=== PATIENT | male | born 1965 | race Caucasian/White ===

== ENCOUNTER → 2017-10-09 | Outpatient (REF) | payer OTHER | LOC: M SFHCADAM 12:26 | DX: D72.819 Decreased white blood cell count, unspecified (principal); F10.20 Alcohol dependence, uncomplicated; E78.5 Hyperlipidemia, unspecified; Z12.5 Encounter for screening for malignant neoplasm of prostate ==

== ENCOUNTER → 2018-05-28 | Outpatient (CLI) | payer OTHER ==
[2018-05-28 19:55] LABS: BASO % 0.5 % (0.0-1.0); EOS % 0.5 % (0.0-3.0); HEMATOCRIT 42.4 % (42.0-52.0); HEMOGLOBIN 15.1 g/dl (13.5-17.5); IMMATURE GRANULOCYTE % 0.5 % (0-3.0); LYMPH # 1.4 10^3/uL (1.5-4.5); LYMPH % 21.9 % (24.0-44.0); MEAN CORPUSCULAR HEMOGLOBIN 32.1 pg (27.0-33.0); MEAN CORPUSCULAR HGB CONC 35.6 g/dl (32.0-36.5); MEAN CORPUSCULAR VOLUME 90.2 fl (80.0-96.0); MONO # 0.7 10^3/uL (0.0-0.8); MONO % 11.4 % (0.0-5.0); NEUTROPHILS # 4.2 10^3/uL (1.8-7.7); NEUTROPHILS % 65.2 % (36.0-66.0); PLATELET COUNT, AUTOMATED 226 10^3/uL (150-450); RED CELL DISTRIBUTION WIDTH 13.6 % (11.5-14.5); WHITE BLOOD COUNT 6.5 10^3/uL (4.0-10.0)
[2018-05-28 20:12] LABS: ALBUMIN 3.8 GM/DL (3.2-5.2); ALBUMIN/GLOBULIN RATIO 1.03 (1.00-1.93); ALKALINE PHOSPHATASE 105 U/L (45-117); ALT/SGPT 39 U/L (12-78); AMYLASE 74 U/L (25-115); ANION GAP 9 MEQ/L (8-16); AST/SGOT 59 U/L (7-37); BILIRUBIN,TOTAL 0.3 MG/DL (0.2-1.0); BLOOD UREA NITROGEN 4 MG/DL (7-18); CALCIUM LEVEL 8.5 MG/DL (8.5-10.1); CARBON DIOXIDE LEVEL 25 MEQ/L (21-32); CHLORIDE LEVEL 93 MEQ/L (98-107); CREATININE FOR GFR 0.73 MG/DL (0.70-1.30); GLOMERULAR FILTRATION RATE > 60.0 (>56); GLUCOSE, FASTING 91 MG/DL (70-100); LIPASE 99 U/L (73-393); POTASSIUM SERUM 4.2 MEQ/L (3.5-5.1); SODIUM LEVEL 127 MEQ/L (136-145); TOTAL PROTEIN 7.5 GM/DL (6.4-8.2)
== END ==
LOC: M ADAMS 14:48
DX: R10.9 Unspecified abdominal pain (principal)
CPT/HCPCS: 82150

== ENCOUNTER → 2018-06-04 | Outpatient (REF) | payer OTHER ==
[2018-06-05 00:03] LABS: ANION GAP 12 MEQ/L (8-16); BLOOD UREA NITROGEN 4 MG/DL (7-18); CALCIUM LEVEL 8.3 MG/DL (8.5-10.1); CARBON DIOXIDE LEVEL 22 MEQ/L (21-32); CHLORIDE LEVEL 93 MEQ/L (98-107); CREATININE FOR GFR 0.56 MG/DL (0.70-1.30); GLOMERULAR FILTRATION RATE > 60.0 (>56); GLUCOSE, FASTING 82 MG/DL (70-100); POTASSIUM SERUM 4.3 MEQ/L (3.5-5.1); SODIUM LEVEL 127 MEQ/L (136-145)
== END ==
LOC: M LABDRWAD 12:35
DX: R10.9 Unspecified abdominal pain (principal); E87.8 Other disorders of electrolyte and fluid balance, not elsewhere classified

== ENCOUNTER 2018-06-07 12:15 | Inpatient (IN) | payer OTHER ==
[2018-06-07] MEDS: FOLIC ACID 1 MG TAB PO (09:00)
[2018-06-07] MEDS: THIAMINE 100 MG TAB PO (09:00)
[2018-06-07 13:14] LABS: BASO % 0.5 % (0.0-1.0); EOS # 0.1 10^3/uL (0.0-0.50); EOS % 1.8 % (0.0-3.0); HEMATOCRIT 39.4 % (42.0-52.0); HEMOGLOBIN 14.7 g/dl (13.5-17.5); IMMATURE GRANULOCYTE % 0.2 % (0-3.0); LYMPH # 1.3 10^3/uL (1.5-4.5); LYMPH % 29.6 % (24.0-44.0); MEAN CORPUSCULAR HEMOGLOBIN 32.9 pg (27.0-33.0); MEAN CORPUSCULAR VOLUME 88.1 fl (80.0-96.0); MONO # 0.6 10^3/uL (0.0-0.8); MONO % 12.5 % (0.0-5.0); NEUTROPHILS # 2.4 10^3/uL (1.8-7.7); NEUTROPHILS % 55.4 % (36.0-66.0); PLATELET COUNT, AUTOMATED 175 10^3/uL (150-450); RED BLOOD COUNT 4.47 10^6/uL (4.30-6.10); RED CELL DISTRIBUTION WIDTH 13.6 % (11.5-14.5); WHITE BLOOD COUNT 4.4 10^3/uL (4.0-10.0)
[2018-06-07 13:44] LABS: ANION GAP 9 MEQ/L (8-16); BLOOD UREA NITROGEN 4 MG/DL (7-18); CALCIUM LEVEL 8.3 MG/DL (8.5-10.1); CARBON DIOXIDE LEVEL 26 MEQ/L (21-32); CHLORIDE LEVEL 88 MEQ/L (98-107); GLOMERULAR FILTRATION RATE > 60.0 (>56); GLUCOSE, FASTING 87 MG/DL (70-100); POTASSIUM SERUM 4.4 MEQ/L (3.5-5.1); SODIUM LEVEL 123 MEQ/L (136-145)
[2018-06-07] MEDS: NS 1,000 ML IV (14:13)
[2018-06-07] MEDS: NICOTINE 21MG/24HR 1 EA TRANSDERMAL TD (14:27)
[2018-06-07 14:51] LABS: FREE T4 1.15 NG/DL (0.76-1.46)
[2018-06-07] MEDS ORDERED: ACETAMINOPHEN TAB 650MG DOSE (2X325MG) PO (15:15)
[2018-06-07] MEDS ORDERED: ISOVUE-370 76% 100ML VIAL (Q9967) As Ordered (15:19)
[2018-06-07 16:36] LABS: OSMOLALITY SERUM 284 MOSM/KG (275-295)
[2018-06-07 16:53] LABS: CORTISOL BASELINE 9.1 UG/DL (4.3-22.4)
[2018-06-07 17:01] LABS: ANION GAP 13 MEQ/L (8-16); BLOOD UREA NITROGEN 3 MG/DL (7-18); CARBON DIOXIDE LEVEL 20 MEQ/L (21-32); CHLORIDE LEVEL 91 MEQ/L (98-107); CREATININE FOR GFR 0.39 MG/DL (0.70-1.30); GLOMERULAR FILTRATION RATE > 60.0 (>56); GLUCOSE, FASTING 81 MG/DL (70-100); POTASSIUM SERUM 4.4 MEQ/L (3.5-5.1); SODIUM LEVEL 124 MEQ/L (136-145)
[2018-06-07 17:04] LABS: OSMOLALITY URINE 225 MOSM/KG (500-800)
[2018-06-07 17:04] LABS: KETONE, URINE AUTO RFX NEGATIVE (NEGATIVE); LEUKOCYTE ESTERASE UR AUTO RFX NEGATIVE (NEGATIVE); NITRITE, URINE AUTO RFX NEGATIVE (NEGATIVE); RBC, URINE AUTO RFX 0 /HPF (0-3); SPECIFIC GRAVITY UR AUTO RFX 1.018 (1.002-1.035); SQUAM EPITHELIAL CELL UR AURFX 0 /HPF (0-6); WBC, URINE AUTO RFX 0 /HPF (0-3)
[2018-06-07 17:08] LABS: CREATININE,RANDOM URINE < 13.0 MG/DL; SODIUM,RANDOM URINE 59 MEQ/L
[2018-06-07 17:27] LABS: LACTIC ACID SEPSIS PROTOCOL 1.6 MMOL/L (0.4-2.0)
[2018-06-07] MEDS: OXAZEPAM 10 MG CAP PO ×2 (18:11→23:21)
[2018-06-07] MEDS: ENOXAPARIN 40 MG/0.4 ML SYRINGE (J1650) SC (20:54)
[2018-06-07] MEDS: LISINOPRIL 20 MG TAB PO (20:54)
[2018-06-07] MEDS: amLODIPine 5 MG TAB PO (20:55)
[2018-06-07] MEDS: risperiDONE 2 MG TAB PO (21:01)
[2018-06-07] MEDS: AMPICILLIN SOD/SULBACTAM SOD 1.5 GM in D5W MINI-BAG PLUS 50 ML IV (21:47)
[2018-06-08] MEDS: AMPICILLIN SOD/SULBACTAM SOD 1.5 GM in D5W MINI-BAG PLUS 50 ML IV ×3 (04:30→15:55)
[2018-06-08] MEDS: OXAZEPAM 10 MG CAP PO ×2 (05:29→11:43)
[2018-06-08 05:38] LABS: BASO # 0.1 10^3/uL (0.0-0.2); EOS # 0.1 10^3/uL (0.0-0.50); EOS % 1.8 % (0.0-3.0); HEMATOCRIT 37.1 % (42.0-52.0); HEMOGLOBIN 13.6 g/dl (13.5-17.5); IMMATURE GRANULOCYTE % 0.2 % (0-3.0); LYMPH # 1.3 10^3/uL (1.5-4.5); LYMPH % 25.4 % (24.0-44.0); MEAN CORPUSCULAR HEMOGLOBIN 31.9 pg (27.0-33.0); MEAN CORPUSCULAR HGB CONC 36.7 g/dl (32.0-36.5); MEAN CORPUSCULAR VOLUME 86.9 fl (80.0-96.0); MONO # 0.7 10^3/uL (0.0-0.8); MONO % 13.9 % (0.0-5.0); NEUTROPHILS # 2.9 10^3/uL (1.8-7.7); NEUTROPHILS % 57.7 % (36.0-66.0); PLATELET COUNT, AUTOMATED 172 10^3/uL (150-450); RED BLOOD COUNT 4.27 10^6/uL (4.30-6.10); RED CELL DISTRIBUTION WIDTH 13.3 % (11.5-14.5)
[2018-06-08 06:34] LABS: ANION GAP 8 MEQ/L (8-16); AST/SGOT 73 U/L (7-37); BLOOD UREA NITROGEN 8 MG/DL (7-18); CALCIUM LEVEL 8.2 MG/DL (8.5-10.1); CARBON DIOXIDE LEVEL 26 MEQ/L (21-32); CHLORIDE LEVEL 94 MEQ/L (98-107); CREATININE FOR GFR 0.62 MG/DL (0.70-1.30); GLOMERULAR FILTRATION RATE > 60.0 (>56); GLUCOSE, FASTING 86 MG/DL (70-100); SODIUM LEVEL 128 MEQ/L (136-145)
[2018-06-08 06:35] LABS: ALBUMIN/GLOBULIN RATIO 0.94 (1.00-1.93); ALKALINE PHOSPHATASE 118 U/L (45-117); ALT/SGPT 52 U/L (12-78); BILIRUBIN,TOTAL 0.8 MG/DL (0.2-1.0); TOTAL PROTEIN 6.2 GM/DL (6.4-8.2)
[2018-06-08] MEDS: THIAMINE 100 MG TAB PO (10:08)
[2018-06-08] MEDS: FOLIC ACID 1 MG TAB PO (10:08)
[2018-06-08] MEDS: MULTIVITAMINS/MINERALS THERAP 1 TAB PO (10:08)
[2018-06-08] MEDS: TAMSULOSIN 0.4 MG CAP PO (10:09)
[2018-06-08] MEDS: NICOTINE 21MG/24HR 1 EA TRANSDERMAL TD (13:43)
== END 2018-06-08 17:32 | disposition home or self-care (01) | DRG 811 ==
LOC: M ED 12:15 → M ED INP 16:33 → M PCU 19:50
DX: T78.3XXA Angioneurotic edema, initial encounter (principal); E22.2 Syndrome of inappropriate secretion of antidiuretic hormone; F41.9 Anxiety disorder, unspecified; F32.9 Major depressive disorder, single episode, unspecified; F17.210 Nicotine dependence, cigarettes, uncomplicated; I10 Essential (primary) hypertension; E78.5 Hyperlipidemia, unspecified; Z85.828 Personal history of other malignant neoplasm of skin; Z79.899 Other long term (current) drug therapy; Z88.5 Allergy status to narcotic agent

== ENCOUNTER → 2018-06-07 | Outpatient (REF) | payer OTHER ==
[2018-06-07 13:11] LABS: OSMOLALITY SERUM 288 MOSM/KG (275-295)
[2018-06-07 13:16] LABS: OSMOLALITY URINE 160 MOSM/KG (500-800)
[2018-06-07 13:40] LABS: ALBUMIN 3.1 GM/DL (3.2-5.2); ALBUMIN/GLOBULIN RATIO 0.91 (1.00-1.93); ALKALINE PHOSPHATASE 121 U/L (45-117); ALT/SGPT 49 U/L (12-78); ANION GAP 11 MEQ/L (8-16); AST/SGOT 66 U/L (7-37); BILIRUBIN,TOTAL 0.6 MG/DL (0.2-1.0); BLOOD UREA NITROGEN 5 MG/DL (7-18); CALCIUM LEVEL 7.7 MG/DL (8.5-10.1); CARBON DIOXIDE LEVEL 23 MEQ/L (21-32); CHLORIDE LEVEL 89 MEQ/L (98-107); CREATININE FOR GFR 0.54 MG/DL (0.70-1.30); FREE T4 1.06 NG/DL (0.76-1.46); GLOMERULAR FILTRATION RATE > 60.0 (>56); GLUCOSE, FASTING 79 MG/DL (70-100); POTASSIUM SERUM 4.5 MEQ/L (3.5-5.1); PSA SCREENING 0.13 NG/ML (< 4.0); SODIUM LEVEL 123 MEQ/L (136-145); TOTAL PROTEIN 6.5 GM/DL (6.4-8.2)
[2018-06-07 15:36] LABS: CORTISOL AM 12.2 UG/DL (4.3-22.4)
== END ==
LOC: M SFHCADAM 10:43
DX: E87.1 Hypo-osmolality and hyponatremia (principal); Z12.5 Encounter for screening for malignant neoplasm of prostate
CPT/HCPCS: 83930

== ENCOUNTER → 2018-06-14 | Outpatient (REF) | payer OTHER ==
[2018-06-14 13:29] LABS: ALBUMIN 3.2 GM/DL (3.2-5.2); ANION GAP 9 MEQ/L (8-16); BLOOD UREA NITROGEN 5 MG/DL (7-18); CALCIUM LEVEL 8.1 MG/DL (8.5-10.1); CARBON DIOXIDE LEVEL 26 MEQ/L (21-32); CHLORIDE LEVEL 92 MEQ/L (98-107); CREATININE FOR GFR 0.58 MG/DL (0.70-1.30); GLOMERULAR FILTRATION RATE > 60.0 (>56); GLUCOSE, FASTING 79 MG/DL (70-100); PHOSPHORUS LEVEL 3.5 MG/DL (2.5-4.9); POTASSIUM SERUM 4.6 MEQ/L (3.5-5.1); SODIUM LEVEL 127 MEQ/L (136-145)
== END ==
LOC: M SFHCADAM 09:37
DX: I10 Essential (primary) hypertension (principal); E87.1 Hypo-osmolality and hyponatremia
CPT/HCPCS: 80069

== ENCOUNTER → 2018-06-28 | Outpatient (REF) | payer OTHER ==
[2018-06-28 19:53] LABS: ANION GAP 9 MEQ/L (8-16); BLOOD UREA NITROGEN 4 MG/DL (7-18); CALCIUM LEVEL 8.4 MG/DL (8.5-10.1); CARBON DIOXIDE LEVEL 25 MEQ/L (21-32); CHLORIDE LEVEL 97 MEQ/L (98-107); CREATININE FOR GFR 0.73 MG/DL (0.70-1.30); GLOMERULAR FILTRATION RATE > 60.0 (>56); GLUCOSE, FASTING 68 MG/DL (70-100); POTASSIUM SERUM 4.4 MEQ/L (3.5-5.1); SODIUM LEVEL 131 MEQ/L (136-145)
== END ==
LOC: M SFHCADAM 14:19
DX: E87.1 Hypo-osmolality and hyponatremia (principal)

== ENCOUNTER 2018-09-03 13:26 | Emergency (ER) | payer OTHER ==
[~2018-09-03] VITALS: Ht 170.2 cm; Wt 63.6 kg
[~2018-09-03 13:26] MED LIST: /DIVA50TA PO; /QUET25TA; ABIL5TAB; AMLO5TAB6 PO; AUGM875T28 PO; CELE100C; CELE20TA; CELE40TA OR; DARV100T; DEPA250T2 OR; DEPA500T2 OR; FLOM0.4C39 PO; FOLI1TAB86 PO; LISI-538 PO; LITH300T2 PO; LITH450T OR; LOPR50TA; LOSA50TA88 PO; NAPR500T; No Historical Meds; No home meds; QUET30TA OR; QUET30XR; RISP0.5T3 PO; RISP1SOL PO; RISP2TAB3 PO; SERO200T OR; SEROQUEL; TRAM50TA2; TRAZ150T PO; TRAZ50TA; TRAZ50TA OR; VITA100T2 PO; VITMTA GT; ZOLO50TA PO
[2018-09-03 13:27] VITALS: BP 139/76
== END 2018-09-03 16:37 | disposition left against medical advice (07) ==
LOC: M ED 13:26
DX: K08.89 Other specified disorders of teeth and supporting structures (principal); Z53.21 Procedure and treatment not carried out due to patient leaving prior to being seen by health care provider

== ENCOUNTER → 2018-11-14 | Outpatient (REF) | payer OTHER ==
[~2018-11-14] MED LIST changes: -/DIVA50TA PO; -/QUET25TA; +DEPA1TAB3 PO; -QUET30XR; +SERO1TAB3; +SERO300T20
[2018-11-14 12:37] LABS: EOS # 0.1 10^3/uL (0.0-0.50); HEMATOCRIT 42.7 % (42.0-52.0); HEMOGLOBIN 15.1 g/dl (13.5-17.5); LYMPH # 1.1 10^3/uL (1.5-4.5); LYMPH % 27.1 % (24.0-44.0); MEAN CORPUSCULAR HEMOGLOBIN 31.9 pg (27.0-33.0); MEAN CORPUSCULAR HGB CONC 35.4 g/dl (32.0-36.5); MEAN CORPUSCULAR VOLUME 90.1 fl (80.0-96.0); MONO # 0.6 10^3/uL (0.0-0.8); MONO % 13.9 % (0.0-5.0); NEUTROPHILS # 2.3 10^3/uL (1.8-7.7); NEUTROPHILS % 55.8 % (36.0-66.0); PLATELET COUNT, AUTOMATED 218 10^3/uL (150-450); RED BLOOD COUNT 4.74 10^6/uL (4.30-6.10); WHITE BLOOD COUNT 4.1 10^3/uL (4.0-10.0)
[2018-11-14 13:15] LABS: ALBUMIN 4.1 GM/DL (3.2-5.2); ALT/SGPT 20 U/L (12-78); BILIRUBIN,TOTAL 0.5 MG/DL (0.2-1.0); BLOOD UREA NITROGEN 6 MG/DL (7-18); CALCIUM LEVEL 9.1 MG/DL (8.5-10.1); CARBON DIOXIDE LEVEL 25 MEQ/L (21-32); CHLORIDE LEVEL 98 MEQ/L (98-107); CREATININE FOR GFR 0.78 MG/DL (0.70-1.30); GLOMERULAR FILTRATION RATE > 60.0 (>56); GLUCOSE, FASTING 103 MG/DL (70-100); SODIUM LEVEL 130 MEQ/L (136-145); TOTAL PROTEIN 7.4 GM/DL (6.4-8.2)
== END ==
LOC: M SFHCADAM 08:56
PROVIDERS: ATTEND Family Medicine
DX: I10 Essential (primary) hypertension (principal); E87.1 Hypo-osmolality and hyponatremia; F10.20 Alcohol dependence, uncomplicated; D72.819 Decreased white blood cell count, unspecified; F31.9 Bipolar disorder, unspecified

== ENCOUNTER → 2019-11-21 | Outpatient (REF) | payer OTHER | LOC: M LAB REF 17:12 | PROVIDERS: ATTEND Dermatology | DX: L57.0 Actinic keratosis (principal) ==

== ENCOUNTER → 2020-02-03 | Outpatient (CLI) | payer OTHER ==
--- NOTE | 2020-02-03 10:22 | REP ---
Right hip: Two views. History: Pain in the right hip. Comparison AP pelvis radiograph is from February 03, 2009. Findings: There is extensive sclerosis and radiolucency in the femoral head on the right consistent with established avascular necrosis of the femoral head. Hip joint spaces preserved. No flattening is visible. There is minimal superior acetabular spurring. Vascular calcifications noted. No erosive changes seen. No fractures noted. 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 No collapse or flattening. Minimal acetabular spurring. Electronically Signed by Erik Waggoner MD 02/03/2020 10:14 A
== END ==
LOC: M ADAMS 09:28
PROVIDERS: ATTEND Physician Assistant
DX: M87.051 Idiopathic aseptic necrosis of right femur (principal); M25.751 Osteophyte, right hip

== ENCOUNTER → 2020-02-28 | Outpatient (CLI) | payer OTHER ==
[~2020-02-28] MED LIST changes: +AMLO1TAB24 PO; -AMLO5TAB6 PO; +VENL37.598 PO
== END ==
LOC: M LABSMTC 12:16
PROVIDERS: ATTEND Anesthesiology
DX: Z01.818 Encounter for other preprocedural examination (principal); Z11.59 Encounter for screening for other viral diseases
CPT/HCPCS: C9803; U0003

== ENCOUNTER → 2020-03-04 | Day surgery (SDC) | payer OTHER ==
[~2020-03-04] VITALS: Ht 170.2 cm; Wt 65.8 kg
[~2020-03-04] MED LIST changes: -AMLO1TAB24 PO; +AMLO5TAB6 PO; +LIDOCAINE 2% 100MG/5ML SDV (FOR ANES.) As Ordered ONE; +NS 1,000 ML IV ONE; +propofoL 200 MG/20 ML VIAL As Ordered ONE
--- NOTE | 2020-03-04 09:11 | ROOR ---
Patient Name: Yung Noonan Procedure Date: 03/04/2020 8:28 AM Date of : 1965 Age: 54 Room: [facility] Gender: Male Note Status: Finalized Procedure: Colonoscopy Indications: High risk colon cancer surveillance: Personal history of colonic polyps Providers: Cristhian BARAHONA MD Referring MD: Tim Benson MD Requesting Provider: Medicines: Monitored Anesthesia Care Complications: No immediate complications. Procedure: Pre-Anesthesia Assessment: - The heart rate, respiratory rate, oxygen saturations, blood pressure, adequacy of pulmonary ventilation, and response to care were monitored throughout the procedure. The Colonoscope was introduced through the anus and advanced to the terminal ileum, with identification of the appendiceal orifice and IC valve. The colonoscopy was performed without difficulty. The patient tolerated the procedure well. The quality of the bowel preparation was good. Findings: The perianal and digital rectal examinations were normal. Four sessile polyps were found in the rectum, sigmoid colon and cecum. The polyps were 3 to 5 mm in size. These polyps were removed with a cold snare. Resection and retrieval were complete. A 10 mm polyp was found in the proximal sigmoid colon. The polyp was centrally depressed/umbilicated. The polyp was removed with a hot snare. Resection and retrieval were complete. To prevent bleeding after the polypectomy, three hemostatic clips were successfully placed. There was no bleeding at the end of the procedure. Area was successfully injected with 3 mL April ink for tattooing. Small Internal Hemorrhoids. Impression: - Four 3 to 5 mm polyps in the rectum, in the sigmoid colon and in the cecum, removed with a cold snare. Resected and retrieved. - One 10 mm polyp in the proximal sigmoid colon, removed with a hot snare. Resected and retrieved. Clips were placed. Injected. - Small Internal Hemorrhoids. - The exam was otherwise normal to the cecum. Recommendation: - Telephone endoscopist for pathology results in 2 weeks. - Repeat colonoscopy date to be determined after pending pathology results are reviewed for surveillance based on pathology results. Cristhian Barahona MD Cristhian BARAHONA MD 03/04/2020 9:10:24 AM Electronically signed by Cristhian BARAHONA MD Number of Addenda: 0 Note Initiated On: 03/04/2020 8:28 AM Estimated Blood Loss: Estimated blood loss: none.
[2020-03-04 09:30] VITALS: BP 157/96
== END | disposition home or self-care (01) ==
LOC: M OPP 07:42
PROVIDERS: ATTEND Internal Medicine Gastroenterology
DX: Z86.010 Personal history of colon polyps (principal); D12.6 Benign neoplasm of colon, unspecified; D12.0 Benign neoplasm of cecum; I10 Essential (primary) hypertension; F31.9 Bipolar disorder, unspecified; Z88.5 Allergy status to narcotic agent; F17.218 Nicotine dependence, cigarettes, with other nicotine-induced disorders; Z79.899 Other long term (current) drug therapy; F32.9 Major depressive disorder, single episode, unspecified; F41.9 Anxiety disorder, unspecified; F12.10 Cannabis abuse, uncomplicated

== ENCOUNTER 2020-03-06 11:06 | Emergency (ER) | payer OTHER ==
[~2020-03-06 11:06] MED LIST changes: +AMLO1TAB24 PO; -AMLO5TAB6 PO; -LIDOCAINE 2% 100MG/5ML SDV (FOR ANES.) As Ordered ONE; -NS 1,000 ML IV ONE; -VENL37.598 PO; -propofoL 200 MG/20 ML VIAL As Ordered ONE
[2020-03-06] MEDS ORDERED: ISOVUE-370 76% 100ML VIAL As Ordered ONE (16:04)
[2020-03-06] MEDS ORDERED: CIPROFLOXACIN 500MG TABLET ONE (17:16)
[2020-03-06] MEDS ORDERED: CIPROFLOXACIN 500MG TABLET As Ordered ONE (17:16)
[2020-03-06] MEDS ORDERED: DICYCLOMINE INJ 20MG/2ML (J0500) As Ordered ONE (17:16)
[2020-03-06] MEDS ORDERED: DICYCLOMINE INJ 20MG/2ML (J0500) ONE (17:16)
[2020-04-02 14:21] LABS: BASO % 0.6 % (0.0-1.0); EOS # 0.1 10^3/uL (0.0-0.5); EOS % 0.9 % (0.0-3.0); HEMATOCRIT 41.8 % (42.0-52.0); HEMOGLOBIN 14.8 g/dl (13.5-17.5); LYMPH # 1.6 10^3/uL (1.5-5.0); LYMPH % 23.8 % (24.0-44.0); MEAN CORPUSCULAR HEMOGLOBIN 31.6 pg (27.0-33.0); MEAN CORPUSCULAR HGB CONC 35.4 g/dl (32.0-36.5); MEAN CORPUSCULAR VOLUME 89.1 fl (80.0-96.0); MONO # 0.7 10^3/uL (0.0-0.8); MONO % 10.9 % (0.0-5.0); NEUTROPHILS # 4.3 10^3/uL (1.5-8.5); NEUTROPHILS % 63.5 % (36.0-66.0); PLATELET COUNT, AUTOMATED 302 10^3/uL (150-450); RED BLOOD COUNT 4.69 10^6/uL (4.30-6.10); WHITE BLOOD COUNT 6.8 10^3/uL (4.0-10.0)
[2020-04-13 07:37] LABS: BLOOD UREA NITROGEN 9 MG/DL (7-18); GLUCOSE, FASTING 77 MG/DL (70-100)
[2020-04-13 07:38] LABS: CARBON DIOXIDE LEVEL 24 mmol/L (20-29); CHLORIDE LEVEL 94 MEQ/L (98-107); CREATININE FOR GFR 0.76 MG/DL (0.70-1.30); GLOMERULAR FILTRATION RATE > 60.0 (>56); POTASSIUM SERUM 4.4 MEQ/L (3.5-5.1); SODIUM LEVEL 129 MEQ/L (136-145)
== END 2020-03-06 17:25 | disposition home or self-care (01) ==
LOC: M ED 11:06
DX: R10.9 Unspecified abdominal pain (principal); Z98.890 Other specified postprocedural states; N41.9 Inflammatory disease of prostate, unspecified; I10 Essential (primary) hypertension; N40.0 Benign prostatic hyperplasia without lower urinary tract symptoms; F33.9 Major depressive disorder, recurrent, unspecified; Z88.5 Allergy status to narcotic agent; Z79.899 Other long term (current) drug therapy
CPT/HCPCS: 74018; 74177; 80048; 85025; 96372; 99284; J0500; Q9967

== ENCOUNTER 2020-04-11 08:34 | Inpatient (IN) | payer MEDICAID, OTHER ==
[~2020-04-11] VITALS: Ht 170.2 cm; Wt 76.0 kg
[2020-04-11 10:01] LABS: HEMATOCRIT 38.9 % (42.0-52.0); HEMOGLOBIN 14.1 g/dl (13.5-17.5); MEAN CORPUSCULAR HEMOGLOBIN 32.2 pg (27.0-33.0); MEAN CORPUSCULAR HGB CONC 36.2 g/dl (32.0-36.5); MEAN CORPUSCULAR VOLUME 88.8 fl (80.0-96.0); PLATELET COUNT, AUTOMATED 276 10^3/uL (150-450); RED BLOOD COUNT 4.38 10^6/uL (4.30-6.10); WHITE BLOOD COUNT 4.9 10^3/uL (4.0-10.0)
[2020-04-11 10:25] LABS: AMPHETAMINES LEVEL URINE NEGATIVE (NEGATIVE); BARBITURATES URINE NEGATIVE (NEGATIVE); BENZODIAZEPINES URINE NEGATIVE (NEGATIVE); CANNABINOIDS URINE POSITIVE (NEGATIVE); COCAINE METABOLITE URINE NEGATIVE (NEGATIVE); METHADONE URINE NEGATIVE (NEGATIVE); OPIATES URINE NEGATIVE (NEGATIVE); PHENCYCLIDINE URINE NEGATIVE (NEGATIVE)
[2020-04-11 10:33] LABS: ACETAMINOPHEN LEVEL < 2.0 UG/ML (10.0-30.0); ALBUMIN 3.5 GM/DL (3.2-5.2); ALT/SGPT 22 U/L (12-78); BILIRUBIN,DIRECT 0.2 MG/DL (0.0-0.2); BILIRUBIN,TOTAL 0.5 MG/DL (0.2-1.0); BLOOD UREA NITROGEN 9 MG/DL (7-18); CALCIUM LEVEL 8.5 MG/DL (8.5-10.1); CARBON DIOXIDE LEVEL 27 MEQ/L (21-32); CHLORIDE LEVEL 94 MEQ/L (98-107); CREATININE FOR GFR 0.69 MG/DL (0.70-1.30); ETHYL ALCOHOL (ETHANOL) 0.069 % (0.000-0.010); GLOMERULAR FILTRATION RATE > 60.0 (>56); GLUCOSE, FASTING 135 MG/DL (70-100); POTASSIUM SERUM 3.9 MEQ/L (3.5-5.1); SODIUM LEVEL 129 MEQ/L (136-145); TOTAL PROTEIN 6.7 GM/DL (6.4-8.2)
[2020-04-11] MEDS ORDERED: MAALOX 30 ML SUSP *UDC PO PRN (14:00)
[2020-04-11] MEDS ORDERED: MOM 30ML SUSPENSION UDC PO PRN (14:00)
[2020-04-11] MEDS ORDERED: traZODone 50 MG TAB PO PRN (14:00)
[2020-04-11] MEDS ORDERED: ACETAMINOPHEN TAB 650MG DOSE (2X325MG) PO PRN (14:00)
[2020-04-11] MEDS ORDERED: VENL37.598 PO (14:16)
[2020-04-11] MEDS ORDERED: LOSA50TA88 PO (14:16)
[2020-04-11 16:35] VITALS: BP 134/81
[2020-04-11 20:30] VITALS: BP 145/75
[2020-04-11] MEDS ORDERED: risperiDONE 2 MG TAB PO SCH (21:00)
[2020-04-11] MEDS ORDERED: amLODIPine 5 MG TAB PO SCH (21:00)
[2020-04-12 06:29] VITALS: BP 132/78
--- NOTE | 2020-04-12 07:46 | MHHPEPDOC ---
[facility] History & Physical History and Physical DATE OF ADMISSION: Apr 11, 2020 at 13:55 HPI: Yung presents today for concerns regarding his lack of sleep in the last few days and relationship problems. He denies hearing voices. The patient recently had a fight with his girlfriend after she told him she didnt want to be with him anymore. Furthermore, he reports becoming distraught/upset and having insomnia for several days following the incident. Yung reportedly mentioned suicidal statements to the police, and as a result, was brought in for assessment. The patient wanted to be connected with [facility] and continue therapy. Furthermore, he stated he had no intention of acting upon suicidal ideations and continues to deny them since his presentation to the inpatient mental health unit. MEDICATIONS: Current medications include Risperidone for his bipolar disorder. MEDICAL HISTORY: He has been diagnosed with bipolar 1. Regarding suicide, he reports a history of suicidal events, but denies any current suicidal thoughts. He denies any symptoms consistent with a relapse of bipolar disorder or any psychotic phenomenon at this time. FAMILY HISTORY: Yung denies a family history of mental illness. SOCIAL HISTORY - SUBSTANCE USE: Per Patient, he is an alcoholic, but has been cutting down his consumption. SOCIAL HISTORY - SMOKING: Regarding smoking, Yung states he cut down on smoking from 2 packs a day to 3 to 4 cigarettes per day. TESTS: The patient screens negative for MDD. Objective Appearance: Well groomed. Appears to be stated age. Well nourished. Behavior: Pleasant. Engaged. Cooperative with good eye contact. Affect: Full range. Appropriate to context. Mood: Appropriately reactive. Euthymic. Generally good. Speech: Normal rate. Spontaneous and Fluid. Normal volume. Motor: No gross motor abnormalities. Cognition: Alert, Attentive, and Oriented to person, place, time. Memory: No formal testing. No gross abnormalities of short or detention memory noted during interview. Thought Form: Linear and goal directed. Thought Content: No evidence of suicidal ideation. No evidence of aggressive or homicidal ideation. No evidence of delusions. No thoughts of self harm. Perception: No perceptual abnormalities noted. Judgement: Intact as evidenced by decision making in the recent past. Insight: Good insight into symptoms and treatment options. Assessment F31.89 Other bipolar disorder F43.20 Adjustment disorder, unspecified Plan The Patient was admitted to the inpatient mental health unit after reportedly getting into an argument with his girlfriend, of which then he became upset and reportedly made suicidal statements. He was brought in and admitted. He reported that he actually was trying to present to get into [facility] earlier, as he has a history of bipolar disorder and wanted to continue getting therapy, as he reported that the difficult situation continues to make it difficult for him to get treatment. Connect with [facility]. Continue Patients home medications and discharge today. Treatment priorities are 1) risk for suicide. Same day discharge. The patient at the time of discharge did not meet criteria for involuntary admission/extension due to having a normal mental status exam, fair insight into the situation, They are engaged in the discharge process, as well as being friendly and amenable in behavioral control and havent been engaging in any observed concerning behavior or ideation recently. They decline voluntary extension/admission at this time and must be discharged in good mariaa, as Im unable to make a case for holding the patient against their will. They may have historical risk factors of admissions and other interactions with psychiatry however, those are not modifiable from a clinical perspective. The patient will need to be discharged in good mariaa. Report situational problems and anxieties. Vital Signs Vital Signs Date Time Temp Pulse Resp B/P (MAP) Pulse Ox O2 Delivery O2 Flow Rate FiO2 04/12/20 06:29 97.8 73 18 132/78 (96) 04/11/20 16:37 98 Room Air Laboratory Data 24H Labs Laboratory Tests 2 04/11/20 09:42: Nucleated Red Blood Cells % (auto) 0.0, Anion Gap 8, Glomerular Filtration Rate > 60.0, Calcium Level 8.5, Total Bilirubin 0.5, Direct Bilirubin 0.2, Aspartate Amino Transf (AST/SGOT) 25, Alanine Aminotransferase (ALT/SGPT) 22, Alkaline Phosphatase 81, Total Protein 6.7, Albumin 3.5, Albumin/Globulin Ratio 1.1, Thyroid Stimulating Hormone (TSH) 1.330, Salicylates Level 6.0, Urine Opiates Screen NEGATIVE, Urine Methadone Screen NEGATIVE, Acetaminophen Level < 2.0L, Urine Barbiturates Screen NEGATIVE, Urine Phencyclidine Screen NEGATIVE, Urine Amphetamines Screen NEGATIVE, Urine Benzodiazepines Screen NEGATIVE, Urine Cocaine Metabolite Screen NEGATIVE, Urine Cannabinoids Screen POSITIVEH, Ethyl Alcohol Level 0.069H CBC/BMP Laboratory Tests 8/30/20 09:42 Medications Scheduled Amlodipine Besylate (Amlodipine Besylate) 5 Mg Tab, 5 MG PO QHS, (Reported) Losartan Potassium (Losartan Potassium) 50 Mg Tablet, 50 MG PO QHS, (Reported) Risperidone (Risperidone) 2 Mg Tab, 2 MG PO QHS, (Reported) Tamsulosin HCl (Flomax) 0.4 Mg Cap, 0.4 MG PO QHS, (Reported) Venlafaxine HCl (Venlafaxine HCl ER) 37.5 Mg Cap.er.24h, 37.5 MG PO QHS, (Reported) Allergies Coded Allergies: oxycodone (Verified Adverse Reaction, Intermediate, makes heart race, 02/23/20) YANY EDWARDS DO Apr 12, 2020 07:46
--- NOTE | 2020-04-12 07:52 | MHDSPDOC ---
[facility] Discharge Summary Discharge Summary DATE OF ADMISSION: Apr 11, 2020 at 13:55 DATE OF DISCHARGE: Apr 12, 2020 at 12:15 please see hp for same day discharge Vital Signs/I&Os Vital Signs Date Time Temp Pulse Resp B/P (MAP) Pulse Ox O2 Delivery O2 Flow Rate FiO2 04/12/20 06:29 97.8 73 18 132/78 (96) 04/11/20 16:37 98 Room Air Laboratory Data Labs 24H Laboratory Tests 2 04/11/20 09:42: Nucleated Red Blood Cells % (auto) 0.0, Anion Gap 8, Glomerular Filtration Rate > 60.0, Calcium Level 8.5, Total Bilirubin 0.5, Direct Bilirubin 0.2, Aspartate Amino Transf (AST/SGOT) 25, Alanine Aminotransferase (ALT/SGPT) 22, Alkaline Phosphatase 81, Total Protein 6.7, Albumin 3.5, Albumin/Globulin Ratio 1.1, Thyroid Stimulating Hormone (TSH) 1.330, Salicylates Level 6.0, Urine Opiates Screen NEGATIVE, Urine Methadone Screen NEGATIVE, Acetaminophen Level < 2.0L, Urine Barbiturates Screen NEGATIVE, Urine Phencyclidine Screen NEGATIVE, Urine Amphetamines Screen NEGATIVE, Urine Benzodiazepines Screen NEGATIVE, Urine Cocaine Metabolite Screen NEGATIVE, Urine Cannabinoids Screen POSITIVEH, Ethyl Alcohol Level 0.069H CBC/BMP Laboratory Tests 04/11/20 09:42 Medications Scheduled Amlodipine Besylate (Amlodipine Besylate) 5 Mg Tab, 5 MG PO QHS, (Reported) Losartan Potassium (Losartan Potassium) 50 Mg Tablet, 50 MG PO QHS, (Reported) Risperidone (Risperidone) 2 Mg Tab, 2 MG PO QHS, (Reported) Tamsulosin HCl (Flomax) 0.4 Mg Cap, 0.4 MG PO QHS, (Reported) Venlafaxine HCl (Venlafaxine HCl ER) 37.5 Mg Cap.er.24h, 37.5 MG PO QHS, (Reported) Allergies Coded Allergies: oxycodone (Verified Adverse Reaction, Intermediate, makes heart race, 02/23/20) YANY EDWARDS DO Apr 12, 2020 07:52
[2020-04-12] MEDS ORDERED: TAMSULOSIN 0.4 MG CAP PO SCH (09:00)
--- NOTE | 2020-04-12 12:30 | IPNPDOC ---
Text Note Date of Service The patient was seen on 04/12/20. NOTE PT. WAS ALREADY DISCHARGED HAD LEFT THE HOSPITAL, BEFORE I HAD THE OPPORTUNITY TO CONSULT ON HIM. VS,Fishbone, I+O VS, Fishbone, I+O Vital Signs Date Time Temp Pulse Resp B/P (MAP) Pulse Ox O2 Delivery O2 Flow Rate FiO2 04/12/20 06:29 97.8 73 18 132/78 (96) 04/11/20 16:37 98 Room Air MAKI CARR MD Apr 12, 2020 12:30
== END 2020-04-12 12:15 | disposition home or self-care (01) | DRG 753 ==
LOC: M ED 08:34 → M ED INP 13:55 → M PSY 16:31
PROVIDERS: ADMIT Psychiatry & Neurology Addiction Medicine; ATTEND Psychiatry & Neurology Addiction Medicine
DX: F31.89 Other bipolar disorder (principal); F43.20 Adjustment disorder, unspecified; Z79.899 Other long term (current) drug therapy; Z88.5 Allergy status to narcotic agent

== ENCOUNTER → 2020-06-03 | Outpatient (CLI) | payer OTHER ==
[~2020-06-03] MED LIST changes: +VENL37.598 PO
--- NOTE | 2020-06-03 12:32 | REP ---
INDICATION: N63.41 SUBAREOLAR LUMP OF RT BREAST; N63.41 SUBAREOLAR LUMP OF RT BREAST. Family history breast cancer in mother. COMPARISON: None TECHNIQUE: MLO and CC views of both breasts performed with tomosynthesis. Spot compression views and magnification views are performed of the right retroareolar region at the site of a palpable lump. Focused right retroareolar ultrasound is performed. FINDINGS: There are mild fibroglandular densities bilaterally. At the site of the palpable lump in the right retroareolar region there is focal density which appears slightly nodular but mostly ill-defined. Magnification views demonstrate tiny pleomorphic microcalcifications in this region. These appear somewhat suspicious. Otherwise no mass or clustered microcalcifications are seen bilaterally. Real-time sonographic evaluation of the right retroareolar region demonstrates a rounded, primarily hypoechoic lesion. It measures 1.2 x 1.2 x 0.8 cm. There are tiny echogenic foci internally which may correlate with the tiny calcifications seen on the mammogram. There are some tiny cystic areas within the lesion as well. IMPRESSION: BIRADS/ACR category 4 suspicious. At the site of the palpable lump in the right retroareolar region focal ill-defined density appears somewhat nodular but demonstrates primarily ill-defined borders. Tiny pleomorphic microcalcifications are seen on magnification views within the density. By ultrasound there is a rounded nodular hypoechoic lesion with a maximum diameter of 1.2 cm containing tiny echogenic foci likely corresponding to the calcifications seen by mammography. Recommend ultrasound-guided biopsy. Specimen radiographs should also be performed to ensure that the calcifications are sampled. This mammogram was interpreted with the aid of an FDA-approved computer-aided detection system. The patient letter being requested is M 4. RECOMMENDATION: Recommend ultrasound-guided biopsy. Specimen radiographs should also be performed to ensure that the calcifications are sampled, <Electronically signed by Nghia Robles > 06/03/20 [id number]
== END ==
LOC: M WHC 08:04
PROVIDERS: ATTEND Family Medicine
DX: N63.41 Unspecified lump in right breast, subareolar (principal); R92.0 Mammographic microcalcification found on diagnostic imaging of breast
CPT/HCPCS: 76642; 77066; G0279

== ENCOUNTER → 2020-06-22 | Outpatient (REF) | payer OTHER | LOC: M SFHCADAM 16:58 | PROVIDERS: ATTEND Family Medicine | DX: N63.41 Unspecified lump in right breast, subareolar (principal); N64.52 Nipple discharge ==

== ENCOUNTER → 2020-08-03 | Outpatient (CLI) | payer OTHER ==
[~2020-08-03] MED LIST changes: +RISP-9 PO; -RISP2TAB3 PO
== END ==
LOC: M PLALAB 11:53
PROVIDERS: ATTEND Surgery
DX: Z13.79 Encounter for other screening for genetic and chromosomal anomalies (principal)

== ENCOUNTER → 2020-08-03 | Outpatient (REF) | payer OTHER ==
--- NOTE | 2020-08-03 12:49 | ROOPDOC ---
[facility] Report Of Operation Report of Operation DATE OF PROCEDURE: 08/03/2020 DIAGNOSIS: right breast suspicious lesion PROCEDURE: Ultrasound guided biopsy of right breast suspicious lesion with clip placement SURGEON: Virginia Obrien BLOOD LOSS: minimal COMPLICATIONS: none Lidocaine 1% LOT [id number] Expiration 12/04 Sodium Bicarbonate 8.4% LOT [id number] Expiration 06/02 Hydromark clip LOT [id number] Expiration 04/01/23 SHAPE 4 Bx device: BARD [id number] x10 cm LOT [id number] Expiration 04/09/23 Informed consent was obtained. The most common risk and possible complications including bleeding, hematoma, bruising, infection, injury to surrounding structures were explained to the patient and the patient expressed u nderstanding. Patient was placed on the bed in the supine position. Appropriate time out was done stating patient's name, date of , and the procedure to be performed. The right breast was prepped and draped in the usual fashion. The ultrasound was used to confirm the location of the lesion in the right breast at upper outer quadrant in periareolar region. Plain Lidocaine 1% and 8.4% sodium bicarbonate 10:1 mix was used to anesthetize the skin, the biopsy site and tissues along the anticipated biopsy tract. Small skin incision was made with blade number 11. BARD Marquee 14G cannula with introducer ([id number]) was inserted through the incision and advanced under the ultrasound guidance to position immediately adjacent to the lesion. Next, the introducer was removed and BARD Marquee 14G biopsy device was places in the cannula. Pre-biopsy imaging, and post-biopsy imaging were captured. Five good core biopsies were taken at various levels of the lesion. Specimen was placed in formaldehyde, labeled with appropriate biopsy site and patient's name, and sent to pathology for evaluation. Next, the biopsy device was withdrawn and a clip introducer was inserted into the biopsy site via the cannula. The SHAPE 4 Hydromark clip was deployed under sonographic guidance. Post-clip placement image was captured. Manual pressure over the biopsy cavity and tract was held after the clip introducer was withdrawn. No bleeding was noted upon removal of the pressure. Post-biopsy mammogram of the right breast was obtained and showed clip in expected position. Postprocedural dressing was placed. Patient tolerated procedure well. Discharge instructions were discussed with the patient and the patient expressed understanding. VIRGINIA OBRIEN DO Aug 03, 2020 12:49
[2020-08-03 16:03] LABS: LUTEINIZING HORMONE 3.5 mIU/mL (1.5-9.3)
== END ==
LOC: M PLALAB 11:54
PROVIDERS: ATTEND Surgery
DX: N62 Hypertrophy of breast (principal)

== ENCOUNTER → 2020-08-03 | Outpatient (CLI) | payer OTHER ==
[2020-08-03 11:46] VITALS: BP 132/84
--- NOTE | 2020-08-03 12:09 | REP ---
INDICATION: N63.10 RIGHT BREAST MASS. COMPARISON: Ultrasound 06/03/2020. TECHNIQUE: Real-time sonographic evaluation of right breast performed. FINDINGS: Ultrasound guidance was provided for Dr. Webb who performed ultrasound-guided biopsy of the right retroareolar region. Biopsy needle is seen within the ill-defined hypoechoic area in the right retroareolar region. IMPRESSION: Ultrasound guidance provided for Dr. Webb for ultrasound-guided biopsy of the right retroareolar region. RECOMMENDATION: Clinical follow-up. <Electronically signed by Nghia Robles > 08/03/20 1206
--- NOTE | 2020-08-03 12:12 | REP ---
INDICATION: N63.10 RIGHT BREAST MASS/US GUIDED BX/CK CLIP PLACEMENT. COMPARISON: Mammogram 06/03/2020. TECHNIQUE: ML and CC views right breast performed following ultrasound-guided biopsy. FINDINGS: HydroMARK clip is seen in the right retroareolar region at the site of the biopsy. The clip is in the region of the retroareolar fibroglandular density previously described. The previously noted tiny calcifications are not visualized on today's exam and were likely sampled during the biopsy. IMPRESSION: HydroMARK clip placed at the site of the right retroareolar biopsy. The previously noted microcalcifications in that region are no longer visualized. RECOMMENDATION: Clinical follow-up. <Electronically signed by Nghia Robles > 08/03/20 [id number]
--- NOTE | 2020-08-12 13:47 | ROOPDOC ---
[facility] Report Of Operation Report of Operation DATE OF PROCEDURE: 08/03/20 DIAGNOSIS: right breast suspicious lesion PROCEDURE: Ultrasound guided biopsy of right breast suspicious lesion with clip placement SURGEON: Virginia Obrien BLOOD LOSS: minimal COMPLICATIONS: none Lidocaine 1% LOT [id number] Expiration 11/2023 Sodium Bicarbonate 8.4% LOT [id number] Expiration 05/2021 Hydromark clip LOT [id number] Expiration 03/2023 SHAPE 4 Bx device: BARD [id number] x10 cm LOT [id number] Expiration 03/2023 Informed consent was obtained. The most common risk and possible complications including bleeding, hematoma, bruising, infection, injury to surrounding structures were explained to the patient and the patient expressed understanding. Patient was placed on the bed in the supine position. Appropriate time out was done stating patients name, date of , and the procedure to be performed. The right breast was prepped and draped in the usual fashion. The ultrasound was used to confirm the location of the lesion in the right retroareolar region extending slightly into upper outer breast. Plain Lidocaine 1% and 8.4% sodium bicarbonate 10:1 mix was used to anesthetize the skin, the biopsy site and tissues along the anticipated biopsy tract. Small skin incision was made with blade number 11. BARD Marquee 14G cannula with introducer ([id number]) was inserted through the incision and advanced under the ultrasound guidance to position immediately adjacent to the lesion. Next, the introducer was removed and BARD Marquee 14G biopsy device was places in the cannula. Pre-biopsy imaging, and post-biopsy imaging were captured. Five good core biopsies were taken at various levels of the lesion. Specimen was placed in formaldehyde, labeled with appropriate biopsy site and patients name, and sent to pathology for evaluation. Next, the biopsy device was withdrawn and a clip introducer was inserted into the biopsy site via the cannula. The SHAPE 4 Hydromark clip was deployed under sonographic guidance. Post-clip placement image was captured. Manual pressure over the biopsy cavity and tract was held after the clip introducer was withdrawn. No bleeding was noted upon removal of the pressure. Post-biopsy mammogram of the right breast was obtained and showed clip in expected position. Postprocedural dressing was placed. Patient tolerated procedure well. Discharge instructions were discussed with the patient and the patient expressed understanding. VIRGINIA OBRIEN DO Aug 12, 2020 13:47
== END ==
LOC: M WHCPRO 09:25
PROVIDERS: ATTEND Surgery
DX: N62 Hypertrophy of breast (principal)

== ENCOUNTER → 2020-08-27 | Outpatient (CLI) | payer OTHER ==
[~2020-08-27] MED LIST changes: -LISI-538 PO; +LISI20TA33 PO; +PROHANCE 279.3MG/ML 15ML VIAL As Ordered ONE
--- NOTE | 2020-08-27 13:01 | REP ---
INDICATION: RT BREAST MASS W/ NIPPLE DISCHARGE. COMPARISON: Mammogram a 06/03/2020. Her TECHNIQUE: Three Soco MRI imaging was performed with a dedicated breast coil. Axial, coronal, and sagittal T1 and T2 weighted scans were obtained with and without fat saturation in the usual fashion. The study includes dynamically acquired post gadolinium-enhanced imaging with image subtraction. Maximum intensity projection and multi planar reformation imaging is included as well. This study is interpreted with the aid of [employer], an FDA approved computer aided detection (CAD) software program, on a dedicated breast MRI workstation. The gadolinium enhancement dose is 13 mL of intravenous ProHance. FINDINGS: Moderate fibroglandular tissue is present bilaterally compatible with gynecomastia. There is minimal background parenchymal enhancement. There is no axillary adenopathy. No cystic changes seen in either breast. There is no suspicious enhancing mass or morphologic abnormality. IMPRESSION: BI-RADS category 1-bilateral breast MRI. No suspicious enhancing mass or morphologic abnormality. <Electronically signed by Nghia Robles > 08/27/20 [id number]
== END ==
LOC: M RAD 08:02
PROVIDERS: ATTEND Surgery
DX: R92.8 Other abnormal and inconclusive findings on diagnostic imaging of breast (principal); N63.10 Unspecified lump in the right breast, unspecified quadrant; N64.52 Nipple discharge; Z80.3 Family history of malignant neoplasm of breast
CPT/HCPCS: A9576; C8908

== ENCOUNTER → 2020-09-23 | Outpatient (REF) | payer OTHER ==
[~2020-09-23] MED LIST changes: -PROHANCE 279.3MG/ML 15ML VIAL As Ordered ONE
[2020-09-24 12:49] LABS: BASO # 0.1 10^3/uL (0.0-0.2); BASO % 1.2 % (0.0-1.0); EOS # 0.2 10^3/uL (0.0-0.5); EOS % 3.7 % (0.0-3.0); HEMATOCRIT 41.1 % (42.0-52.0); HEMOGLOBIN 14.7 g/dl (13.5-17.5); LYMPH # 2.5 10^3/uL (1.5-5.0); LYMPH % 48.7 % (24.0-44.0); MEAN CORPUSCULAR HEMOGLOBIN 31.3 pg (27.0-33.0); MEAN CORPUSCULAR HGB CONC 35.8 g/dl (32.0-36.5); MEAN CORPUSCULAR VOLUME 87.4 fl (80.0-96.0); MONO # 0.5 10^3/uL (0.0-0.8); MONO % 9.5 % (2.0-8.0); NEUTROPHILS # 1.9 10^3/uL (1.5-8.5); NEUTROPHILS % 36.3 % (36.0-66.0); PLATELET COUNT, AUTOMATED 250 10^3/uL (150-450); WHITE BLOOD COUNT 5.2 10^3/uL (4.0-10.0)
[2020-09-24 13:24] LABS: ALBUMIN 3.9 GM/DL (3.2-5.2); ALT/SGPT 21 U/L (12-78); BILIRUBIN,TOTAL 0.5 MG/DL (0.2-1.0); BLOOD UREA NITROGEN 6 MG/DL (7-18); CALCIUM LEVEL 8.9 MG/DL (8.5-10.1); CARBON DIOXIDE LEVEL 27 MEQ/L (21-32); CHLORIDE LEVEL 93 MEQ/L (98-107); CREATININE FOR GFR 0.83 MG/DL (0.70-1.30); GLOMERULAR FILTRATION RATE > 60.0 (>56); GLUCOSE, FASTING 78 MG/DL (70-100); POTASSIUM SERUM 5.3 MEQ/L (3.5-5.1); SODIUM LEVEL 127 MEQ/L (136-145); TOTAL PROTEIN 7.3 GM/DL (6.4-8.2)
== END ==
LOC: M SFHCADAM 15:26
PROVIDERS: ATTEND Family Medicine
DX: D72.819 Decreased white blood cell count, unspecified (principal); I10 Essential (primary) hypertension

== ENCOUNTER → 2020-09-25 | Outpatient (CLI) | payer OTHER | LOC: M LABSMTC 10:31 | PROVIDERS: ATTEND Surgery | DX: Z01.812 Encounter for preprocedural laboratory examination (principal); Z20.822 Contact with and (suspected) exposure to COVID-19 ==

== ENCOUNTER → 2020-09-28 | Outpatient (CLI) | payer OTHER ==
[~2020-09-28] MED LIST changes: +ACET1TAB16 PO
--- NOTE | 2020-09-28 09:08 | REP ---
INDICATION: PREOP COMPARISON: 09/29/2008 TECHNIQUE: PA and lateral. FINDINGS: The mediastinum and cardiac silhouette are normal. The lung camejo demonstrate chronic appearing changes without acute consolidation, effusion, or pneumothorax. The skeletal structures are intact and normal. IMPRESSION: No acute cardiopulmonary process. <Electronically signed by Siva Montemayor > 09/28/20 0904
== END ==
LOC: M ADAMS 08:03
PROVIDERS: ATTEND Family Medicine
DX: Z01.818 Encounter for other preprocedural examination (principal)

== ENCOUNTER 2020-09-30 08:04 | Day surgery (SDC) | payer OTHER ==
[~2020-09-30] VITALS: Ht 170.2 cm; Wt 65.2 kg
[~2020-09-30 08:04] MED LIST changes: -ACET1TAB16 PO; +HEPARIN SOD (PORCINE) 5000UNITS/ML 1ML VIAL/SYRINGE SQ ONE; +LIDOCAINE 1% MDV 20ML VIAL SQ PRN; +LR 1,000 ML IV ONE; +ceFAZolin SOD 2 GM in IV 1 EA IV ONE
--- OUTSIDE RECORDS SUMMARY | 2020-09-30 08:07 | CCD ---
Author Author [facility] [employer] Organization [facility] Address Unknown Phone Unavailable Care Team Providers Care Technical Staff Engineer Name Role Phone Tim Benson Unavailable PROBLEMS Type Condition ICD9-CM Code [id number] Code Onset Dates Condition S tatus W/U Status Risk SNOMED Code Notes Problem Alcoholism F10.20 Active confirmed 3119166 Problem HTN (hypertension) I10 Active confirmed 3 9313192 Problem Leukopenia, unspecified type D72.819 Active confirm ed 39152308 Problem Hyperlipidemia, unspecified hyperlipidemia type E7 8.5 Active confirmed 46791971 Problem Dorsalgia, unspecified M54.9 Active confirmed 090839927 Problem Tobacco abuse Z72.0 Active confirmed 594450 000 Problem Anterolisthesis M43.10 Active confirmed 2741 46143 L5 on S1, MRI 1108 Problem Actinic keratosis L57.0 Active confirmed 20 4595269 Problem Bipolar disorder, unspecified F31.9 Active confirm ed 50026116 Problem Smoker F17.200 Active confirmed 15846906 Problem Other chronic pain G89.29 Active confirmed 8 5288199 Problem Marijuana abuse, continuous F12.10 Active confirmed 369116475 Problem BPH loc w urin obs/LUTS N40.1 Active confirmed 874943139 Problem Enuresis, nocturnal only N39.44 Active confirmed 9552397 Problem Hyponatremia with normal extracellular fluid volume E87.1 Active confirmed 01791771 "beer potomania", se e 06/30 ALLERGIES Allergen (clinical drug ingredient) Drug/Non Drug Allergy do cumented on EMR Reaction Allergy Type Onset Date Status Oxycodone Tachycardia Drug Allergy Active lisinopril angioedema 05/30 Non Drug Allergy Ac tive ENCOUNTERS from 1965 to 2020-09-29 Encounter Location Date Provider Diagnosis [facility] [address] [place] [id number] 15 Sep, 2020 Korey Benson Pre-op evaluation Z01.818 IMMUNIZATIONS Vaccine Route Administration Date Status Influenza (6mo & up) Fluzone Unknown Aug 21, 2016 Ref used SOCIAL HISTORY Tobacco Use: Social History Observation Description Date Details (start date - stop date) Current Smoker Sex Assigned At : Social History Observation Description Sex Assigned At Unknown Audit Question Answer Notes Total Score: 13 Interpretation: Simple Advice Language: Question Answer Notes Languages spoken: Thai Caodaism: Question Answer Notes Caodaism 21 Restorationism Sexual Hx: Question Answer Notes Had sex in the last 12 months (vaginal, oral, or anal)? No Have you ever had an STD? No Drug and Alcohol Question Answer Notes Total Score: 1 Interpretation: Low level Alcohol Screening: Question Answer Notes Did you have a drink containing alcohol in the past year? Ye s Points 7 Interpretation Positive How often did you have six or more drinks on one occas ion in the past year? Less than monthly (1 point) How many drinks did you have on a typica l day when you were drinking in the past year? 5 or 6 (2 points) How often did you have a drink containing alcohol in t he past year? Four or more times a week (4 points) Tobacco Use: Question Answer Notes Are you a: current smoker Smoking Cessation Information Given 10/09/2017 Patient counseled on the dangers of tobacco use and urged to quit: 10/28/2019 How many cigarettes a day do you smoke? 21-30 Are you interested in quitting? Ready to quit Counseled the patient on tobacco use, cessation provided REASON FOR REFERRAL No Information VITAL SIGNS No information MEDICATIONS Medication SIG (Take, Route, Frequency, Duration) Notes Start Da te End Date Status Norvasc 5 MG 1 tablet Orally Once a day for 90 Active Folic Acid 1 MG Oral for 30 Active Venlafaxine HCl ER 37.5 MG 1 cap Orally Daily for 90 Active Acamprosate Calcium 333 MG Oral for 30 Active Losartan Potassium 50 MG 1 tablet Orally Once a day for 90 day(s ) May, Active Fluorouracil 5 % 1 application Externally Twi ce a day Mon - Fri to lesion on vertex of scalp, do not pick or rub area for 42 days 18 Nov, 202 0 Active Risperdal 2 MG 1 tab Orally Daily for 90 Active Mupirocin 2 % 1 application Externally Three times a d ay to scalp for 5 day(s) Oct, Not-Taking Tamsulosin HCl 0.4 MG 1 capsule Orally Once a day for 90 Active PROCEDURES No Information RESULTS No Results REASON FOR VISIT chest xray MEDICAL (GENERAL) HISTORY Type Description Date Medical History Bipolar disorder Medical History Tobacco use Medical History mid midline nasal BCC excise d ~2007 [facility] if Mohs (per patient) Medical History R dorsal hand BCC-excised 07/2016-Sahil Medical History hypertension Medical History alcohol abuse Medical History fatty liver US 01/26, CT 05/30 Medical History adenomatous colon polyps Medical History DDD/DJD of L/S spine with anterolisthes is L5 on S1 MRI 06/20 Medical History hyperlipidemia Medical History daily marijuana use Medical History hyponatremia, asymptomatic ( prob "beer potomania", also 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 Sessile adenomatous polyps. Repeat in 3 years (07/2019) 07/2016 Surgical History R-Breast BX 07/2020 Goals Section No Information Health Concerns No Information MEDICAL EQUIPMENT No Information MENTAL STATUS No Information FUNCTIONAL STATUS No Information ASSESSMENTS Encounter Date Diagnosis Assessment Notes Treatment Notes Treatm ent Clinical Notes Sep, Pre-op evaluation (ICD-10 - Z01.818) PLAN OF TREATMENT Future Test Test Name Order Date ADM CHEST 2 VIEW [id number] Next Appt Details Provider Name:Charley Webb, 03-10-17 09:45:00 AM, [address] [place] [address], [phone], Provider Name:Charley Webb, 03-10-24 08:00:00 AM, [address] [place] [address], [address], Provider Name:Charley Webb, 31-10-18 09:00:00 AM, [address] [place], [address], Insurance Providers Payer Name Payer Address Payer Phone Insured Name Patient Relati onship to Insured Coverage Start Date Coverage End Date [facility] COMMUN[facility] PLAN [facility] [address] [facility] [phone] MARIA C BEATTY self
--- OUTSIDE RECORDS SUMMARY | 2020-09-30 08:07 | CCD ---
Author Author [facility] Organization [facility] Address Unknown Phone Unavailable Care Team Providers Care Laborer [employer] Name Role Phone Charley Webb Unavailable PROBLEMS Type Condition ICD9-CM Code XPT49-CT Code Onset Dates Condition S tatus W/U Status Risk SNOMED Code Notes Problem Alcoholism F10.20 Active confirmed 7735930 Problem HTN (hypertension) I10 Active confirmed 3 2887778 Problem Leukopenia, unspecified type D72.819 Active confirm ed 11769928 Problem Hyperlipidemia, unspecified hyperlipidemia type E7 8.5 Active confirmed 76976004 Problem Dorsalgia, unspecified M54.9 Active confirmed 036456010 Problem Tobacco abuse Z72.0 Active confirmed 266188 000 Problem Anterolisthesis M43.10 Active confirmed 2741 69140 L5 on S1, MRI 08 Problem Actinic keratosis L57.0 Active confirmed 20 9277491 Problem Bipolar disorder, unspecified F31.9 Active confirm ed 54347228 Problem Smoker F17.200 Active confirmed 81017873 Problem Other chronic pain G89.29 Active confirmed 8 6903739 Problem Marijuana abuse, continuous F12.10 Active confirmed 925661057 Problem BPH loc w urin obs/LUTS N40.1 Active confirmed 571929216 Problem Enuresis, nocturnal only N39.44 Active confirmed 8039915 Problem Hyponatremia with normal extracellular fluid volume E87.1 Active confirmed 07251833 "beer potomania", se e 06/30 ALLERGIES Allergen (clinical drug ingredient) Drug/Non Drug Allergy do cumented on EMR Reaction Allergy Type Onset Date Status Oxycodone Tachycardia Drug Allergy Active lisinopril angioedema 05/30 Non Drug Allergy Ac tive ENCOUNTERS from 1965 to 2020 Encounter Location Date Provider Diagnosis [facility] [address] [place] [phone] Sep, Charley Tracey IMMUNIZATIONS Vaccine Route Administration Date Status Influenza (6mo & up) Fluzone Unknown Aug 21, 2016 Ref used SOCIAL HISTORY Tobacco Use: Social History Observation Description Date Details (start date - stop date) Current Smoker Sex Assigned At : Social History Observation Description Sex Assigned At Unknown Audit Question Answer Notes Total Score: 13 Interpretation: Simple Advice Language: Question Answer Notes Languages spoken: Italian Sikh: Question Answer Notes Sikh 21 Muslim Sexual Hx: Question Answer Notes Had sex [...] Notes Start Da te End Date Status Venlafaxine HCl ER 37.5 MG 1 cap Orally Daily for 90 Active Folic Acid 1 MG Oral for 30 Active Norvasc 5 MG 1 tablet Orally Once a day for 90 Active Risperdal 2 MG 1 tab Orally Daily for 90 Active Mupirocin 2 % 1 application Externally Three times a d ay to scalp for 5 day(s) Oct, Not-Taking Tamsulosin HCl 0.4 MG 1 capsule Orally Once a day for 90 Active Acamprosate Calcium 333 MG Oral for 30 Active Losartan Potassium 50 MG 1 tablet Orally Once a day for 90 day(s ) May, Active Fluorouracil 5 % 1 application Externally Twi ce a day Mon - Fri to lesion on vertex of scalp, do not pick or rub area for 42 days Jun, 0 Active PROCEDURES No Information RESULTS No Results REASON FOR VISIT AUTHORIZATION MEDICAL (GENERAL) HISTORY Type Description Date Medical [...] No Information FUNCTIONAL STATUS No Information ASSESSMENTS No Information PLAN OF TREATMENT Next Appt Details Provider Name:Tim Benson, 2020-09 02:30:00 PM, [address] [place] [address], [phone], Provider Name:Charley Webb, 03-10-17 09:45:00 AM, [address] [place] [address], [phone], Provider Name:Charley Webb, 03-10-24 08:00:00 AM, [facility] [place], [address], Provider Name:Charley Webb, 31-10-18 09:00:00 AM, [address] [place], [address], Insurance Providers Payer Name Payer Address Payer Phone Insured Name Patient Relati onship to Insured Coverage Start Date Coverage End Date [facility] COMM[employer] PLAN [facility] [address] [facility] [phone] MARIA C BEATTY self
--- OUTSIDE RECORDS SUMMARY | 2020-09-30 08:07 | CCD ---
Author Author [facility] Organization [facility] Address Unknown Phone Unavailable Care Team Providers Care Adult Nurse Practitioner Name Role Phone Charley Webb Unavailable PROBLEMS Type Condition ICD9-CM Code [id number] Code Onset Dates Condition S tatus W/U Status Risk SNOMED Code Notes Problem Alcoholism F10.20 Active confirmed 5474985 Problem HTN (hypertension) I10 Active confirmed 3 1860570 Problem Leukopenia, unspecified type D72.819 Active confirm ed 55947912 Problem Hyperlipidemia, unspecified hyperlipidemia type E7 8.5 Active confirmed 12110126 Problem Dorsalgia, unspecified M54.9 Active confirmed 690233978 Problem Tobacco abuse Z72.0 Active confirmed 272028 000 Problem Anterolisthesis M43.10 Active confirmed 2741 27282 L5 on S1, MRI 08 Problem Actinic keratosis L57.0 Active confirmed 20 9760214 Problem Bipolar disorder, unspecified F31.9 Active confirm ed 84881687 Problem Smoker F17.200 Active confirmed 94798465 Problem Other chronic pain G89.29 Active confirmed 8 0803587 Problem Marijuana abuse, continuous F12.10 Active confirmed 869918741 Problem BPH loc w urin obs/LUTS N40.1 Active confirmed 143313350 Problem Enuresis, nocturnal only N39.44 Active confirmed 5357252 Problem Hyponatremia with normal extracellular fluid volume E87.1 Active confirmed 41213009 "beer potomania", se e 06/30 ALLERGIES Allergen (clinical drug ingredient) Drug/Non Drug Allergy do cumented on EMR Reaction Allergy Type Onset Date Status Oxycodone Tachycardia Drug Allergy Active lisinopril angioedema 05/30 Non Drug Allergy Ac tive ENCOUNTERS from 1965 to 2020 Encounter Location Date Provider Diagnosis [facility] [address] [place] [address] Jul, Charley Harthernanadal IMMUNIZATIONS Vaccine Route Administration Date Status Influenza (6mo & up) Fluzone Unknown Aug 21, 2016 Ref used SOCIAL HISTORY Tobacco Use: Social History Observation Description Date Details (start date - stop date) Current Smoker Sex Assigned At : Social History Observation Description Sex Assigned At Unknown Audit Question Answer Notes Interpretation: Simple Advice Total Score: 13 Language: Question Answer Notes Languages spoken: Yakut Scientology: Question Answer Notes Scientology 21 Religion Sexual Hx: Question Answer Notes Had sex [...] Information RESULTS No Results REASON FOR VISIT appt MEDICAL (GENERAL) HISTORY Type Description Date Medical [...] BCC posterior right hand - Dr Baxter 2016 Surgical History Colonoscopy with Dr Barahona. Sessile adenomatous polyps. Repeat in 3 years (07/2019) 07/2016 Surgical History R-Breast BX 07/2020 Goals Section No Information Health Concerns No Information MEDICAL EQUIPMENT No Information MENTAL STATUS No Information FUNCTIONAL STATUS No Information ASSESSMENTS No Information PLAN OF TREATMENT Next Appt Details Provider Name:Tim Kelley, 2020-09 02:30:00 PM, [address] [place] [address], [phone], Provider Name:Charley Webb, 03-10-17 09:45:00 AM, [address] [place] [address], [phone], Provider Name:Charley Webb, 03-10-24 08:00:00 AM, [address] [place] [address], [address], Provider Name:Charley Webb, 31-10-18 09:00:00 AM, [address] [place] [address] [place], [phone], Insurance Providers Payer Name Payer Address Payer Phone Insured Name Patient Relati onship to Insured Coverage Start Date Coverage End Date [facility] COMMUN[facility] PLAN [facility] [address] [facility] [phone] MARIA C BEATTY self
--- OUTSIDE RECORDS SUMMARY | 2020-09-30 08:07 | CCD ---
Author Author [facility] [employer] [facility] Organization [facility] [employer] Address Unknown Phone Unavailable Care Team Providers Care Supervisor [employer] Name Role Phone Tim Benson Unavailable PROBLEMS Type Condition ICD9-CM Code VXP36-PD Code Onset Dates Condition S tatus W/U Status Risk SNOMED Code Notes Problem Alcoholism F10.20 Active confirmed 8004133 Problem HTN (hypertension) I10 Active confirmed 3 9723970 Problem Leukopenia, unspecified type D72.819 Active confirm ed 53660320 Problem Hyperlipidemia, unspecified hyperlipidemia type E7 8.5 Active confirmed 43326813 Problem Dorsalgia, unspecified M54.9 Active confirmed 812311049 Problem Tobacco abuse Z72.0 Active confirmed 596347 000 Problem Anterolisthesis M43.10 Active confirmed 2741 67931 L5 on S1, MRI 1108 Problem Actinic keratosis L57.0 Active confirmed 20 8901470 Problem Bipolar disorder, unspecified F31.9 Active confirm ed 23946537 Problem Smoker F17.200 Active confirmed 88735955 Problem Other chronic pain G89.29 Active confirmed 8 2078271 Problem Marijuana abuse, continuous F12.10 Active confirmed 728910523 Problem BPH loc w urin obs/LUTS N40.1 Active confirmed 078245277 Problem Enuresis, nocturnal only N39.44 Active confirmed 2161830 Problem Hyponatremia with normal extracellular fluid volume E87.1 Active confirmed 86192170 "beer potomania", se e 06/30 ALLERGIES Allergen (clinical drug ingredient) Drug/Non Drug Allergy do cumented on EMR Reaction Allergy Type Onset Date Status Oxycodone Tachycardia Drug Allergy Active lisinopril angioedema 05/30 Non Drug Allergy Ac tive ENCOUNTERS from 1965 to 2020-09-28 Encounter Location Date Provider Diagnosis [facility] [address] [place] [address] Sep, Korey Benson Pre-op evaluation Z01.818 ; HTN (hypertension) I10 ; Alcoholism F10.20 ; Tobacco abuse Z72.0 ; Bipolar disorder, unspecified F31.9 and Leukopenia, unspecified type D72.819 IMMUNIZATIONS Vaccine Route Administration Date Status Influenza (6mo & up) Fluzone Unknown Aug 21, 2016 Ref used SOCIAL HISTORY Tobacco Use: Social History Observation Description Date Details (start date - stop date) Current Smoker Sex Assigned At : Social History Observation Description Sex Assigned At Unknown Audit Question Answer Notes Total Score: 13 Interpretation: Simple Advice Language: Question Answer Notes Languages spoken: Maltese Jew: Question Answer Notes Jew 21 Tenriism Sexual Hx: Question Answer Notes Had sex [...] REASON FOR REFERRAL No Information VITAL SIGNS Weight 147 lbs Sep, Height 67 in Sep, BMI 23.02 kg/m2 Sep, Heart Rate 88 /min Sep, Respiratory Rate 18 /min Sep, Temperature 98.3 degrees Fahrenheit Sep, Oximetry 97 Sep, Blood pressure systolic 138 mm Hg Sep, Blood pressure diastolic 72 mm Hg Sep, MEDICATIONS Medication SIG (Take, Route, Frequency, Duration) [...] area for 42 days Jun, 0 Active Risperdal 2 MG 1 tab Orally Daily for 90 Active Mupirocin 2 % 1 application Externally Three times a d ay to scalp for 5 day(s) Oct, Not-Taking Tamsulosin HCl 0.4 MG 1 capsule Orally Once a day for 90 Active PROCEDURES No Information RESULTS Component Value Reference Range CBC with Differential Reviewed date:09/24/2020 15:11:44 Interpretation: Performing Lab:[facility], [facility] [address] [address] , ,[place] [address] WHITE BLOOD COUNT 5.2 4.0-10.0 RED BLOOD COUNT 4.70 4.30-6.10 HEMOGLOBIN 14.7 13.5-17.5 HEMATOCRIT 41.1 42.0-52.0 MEAN CORPUSCULAR VOLUME 87.4 80.0-96.0 MEAN CORPUSCULAR HEMOGLOBIN 31.3 27.0-33.0 MEAN CORPUSCULAR HGB CONC 35.8 32.0-36.5 RED CELL DISTRIBUTION WIDTH 12.9 11.5-14.5 PLATELET COUNT, AUTOMATED 250 150-450 NEUTROPHILS % 36.3 36.0-66.0 LYMPH % 48.7 24.0-44.0 MONO % 9.5 2.0-8.0 EOS % 3.7 0.0-3.0 BASO % 1.2 0.0-1.0 NEUTROPHILS # 1.9 1.5-8.5 LYMPH # 2.5 1.5-5.0 MONO # 0.5 0.0-0.8 EOS # 0.2 0.0-0.5 BASO # 0.1 0.0-0.2 Comprehensive Metabolic Profile (CMP) Reviewed date:09/24/2020 15:11:44 Interpretation: Performing Lab:[facility], [facility] [address] [facility] [id number] , ,[place] [address] GLUCOSE, FASTING 78 70-100 BLOOD UREA NITROGEN 6 7-18 CREATININE FOR GFR 0.83 0.70-1.30 GLOMERULAR FILTRATION RATE > 60.0 >56 SODIUM LEVEL 127 136-145 POTASSIUM SERUM 5.3 3.5-5.1 CHLORIDE LEVEL 93 98-107 CARBON DIOXIDE LEVEL 27 21-32 CALCIUM LEVEL 8.9 8.5-10.1 AST/SGOT 18 7-37 ALT/SGPT 21 12-78 ALKALINE PHOSPHATASE 80 45-117 BILIRUBIN,TOTAL 0.5 0.2-1.0 TOTAL PROTEIN 7.3 6.4-8.2 ALBUMIN 3.9 3.2-5.2 ALBUMIN/GLOBULIN RATIO 1.1 REASON FOR VISIT R breast biopsy MEDICAL (GENERAL) HISTORY Type Description Date Medical [...] Notes Sep, Pre-op evaluation (ICD-10 - Z01.818) I discussed the risks vs. benefits of surgery with the patient in generic terms. I feel that they are at average risk for perioperative complications. I discussed the risks vs. benefits of surgery with the patient in generic terms. I feel that they are average risk for perioperative complications. Revised Cardiac Risk Index for Pre-Operative Risk is <1% : The patient knows that there is always some risk with surgery and they have to be comfortable that, for them, the benefits of surgery outweight the risks in order to proceed. If they have further questions regarding the specifics of the proposed surgical procedure and specific risks, they should discuss them with the surgeon. At this time I feel that the patient's acute and chronic medical conditions are sufficiently optimized at the present time. Interventions might affect perioperative risk are summarized below . I have also recommended the patient stop all medications as recommended by their surgeon and anesthesia except as detailed below . Hold aspirin for 7 full days before surgery. Resart as soon as permitted by your surgeon Do not take any vitamins, supplements, or iron for 1 week before procedure. Do not take LOSARTAN on the morning of surgery. Take all other medications in usual manner and times before surgery, including the morning of your procedure Sep, HTN (hypertension) (ICD-10 - I10) Per JNC 8 guidelines, goal BP < 140/90 (150/90 if age >60), is meeting goal on current regimen. Advised heart-healthy diet, sodium restriction Sep, Alcoholism (ICD-10 - F10.20) Sep, Tobacco abuse (ICD-10 - Z72.0) smoking cessation counseling given. Risks of smoking, including vascular disease (including stroke, heart attack), COPD ( including emphysema and chronic bronchitis), as well as reduced quality of life reviewed with pt, I personally spent greater than 3 minutes counseling patient concerning the importance of smoking cessation. We discussed how quitting would be personally relevant. I asked the patient to identify potential negative consequences of tobacco use - I pointed out the multiple risks asoociated with ongoing tobacco use. We attempted to identify potential barriers to quitting and discussed strategies to address this. We arranged follow up to continue to support patient in their effort to quit. Sep, Bipolar disorder, unspecified (ICD-10 - F31.9) Sep, Leukopenia, unspecified type (ICD-10 - D72.819) PLAN OF TREATMENT Treatment Notes Assessment Notes Clinical Notes Pre-op evaluation I discussed the risk s vs. benefits of surgery with the patient in generic terms. I feel that they are at average risk for perioperative complications. I discussed the risks vs. benefits of surgery with the patient in generic terms. I feel that they are average risk for perioperative complications. Revised Cardiac Risk Index for Pre-Operative Risk is <1% : The patient knows that there is always some risk with surgery and they have to be comfortable that, for them, the benefits of surgery outweight the risks in order to proceed. If they have further questions regarding the specifics of the propos ed surgical procedure and specific risks, they should discuss them with the surgeon. At this time I feel that the patient's acute and chronic medical conditions are sufficiently optimized at the present time. Interventions might affect perioperative risk are summarized below . I have also recommended the patient stop all medications as recommended by their surgeon and anesthesia except as detailed below . Hold aspirin for 7 full days before surgery. Resart as soon as permitted by your surgeon Do not take any vitamins, supplements, or iron for 1 week before procedure. Do not take LOSARTAN on the morning of surgery. Take all other medications in usual manner and times before surgery, including the morning of your procedure HTN (hypertension) Per JNC 8 guidelines , goal BP < 140/90 (150/90 if age >60), is meeting goal on current regimen. Advised heart-healthy diet, sodium restriction Tobacco abuse smoking cessation co unseling given. Risks of smoking, including vascular disease (including stroke, heart attack), COPD ( including emphysema and chronic bronchitis), as well as reduced quality of life reviewed with pt, I personally spent greater than 3 minutes counseling patient concerning the importance of smoking cessation. We discussed how quitting would be personally relevant. I asked the patient to identify potential negative consequences of tobacco use - I pointed out the multiple risks asoociated with ongoing tobacco use. We attempted to identify potential barriers to quitting and discussed strategies to address this. We arranged follow up to continue to support patient in their effort to quit. Treatment Notes Test Name Order Date ELECTROCARDIOGRAM, COMPLETE EKG 2020-09-23 Next Appt Details prn Reason: Provider Name:Charley Webb, 20 03-10-17 09:45:00 AM, [address] [place] [address], [phone], Provider Name:Charley Webb, 03-10-24 08:00:00 AM, [address] [place] [address], [address], Provider Name:Charley Webb, 31-10-18 09:00:00 AM, [address] [place] [address], [phone], Insurance Providers Payer Name Payer Address Payer Phone Insured Name Patient Relati onship to Insured Coverage Start Date Coverage End Date [facility] [address] [facility] [phone] MARIA C BEATTY self
--- OUTSIDE RECORDS SUMMARY | 2020-09-30 08:07 | CCD ---
Author Author [facility] Organization [facility] Address Unknown Phone Unavailable Care Team Providers Care Specialty Plant Supervisor Name Role Phone Charley Webb Unavailable PROBLEMS Type Condition ICD9-CM Code [id number] Code Onset Dates Condition S tatus W/U Status Risk SNOMED Code Notes Problem Alcoholism F10.20 Active confirmed 4517646 Problem HTN (hypertension) I10 Active confirmed 3 4043356 Problem Leukopenia, unspecified type D72.819 Active confirm ed 71306519 Problem Hyperlipidemia, unspecified hyperlipidemia type E7 8.5 Active confirmed 19868923 Problem Dorsalgia, unspecified M54.9 Active confirmed 990357886 Problem Tobacco abuse Z72.0 Active confirmed 086493 000 Problem Anterolisthesis M43.10 Active confirmed 2741 37904 L5 on S1, MRI 08 Problem Actinic keratosis L57.0 Active confirmed 20 0071491 Problem Bipolar disorder, unspecified F31.9 Active confirm ed 66718633 Problem Smoker F17.200 Active confirmed 30763042 Problem Other chronic pain G89.29 Active confirmed 8 4835042 Problem Marijuana abuse, continuous F12.10 Active confirmed 183017995 Problem BPH loc w urin obs/LUTS N40.1 Active confirmed 978108438 Problem Enuresis, nocturnal only N39.44 Active confirmed 1162238 Problem Hyponatremia with normal extracellular fluid volume E87.1 Active confirmed 11574502 "beer potomania", se e 06/30 ALLERGIES Allergen (clinical drug ingredient) Drug/Non Drug Allergy do cumented on EMR Reaction Allergy Type Onset Date Status Oxycodone Tachycardia Drug Allergy Active lisinopril angioedema 05/30 Non Drug Allergy Ac tive ENCOUNTERS from 1965 to 2020-09-18 Encounter Location Date Provider Diagnosis [facility] [place] [address] 29 Aug, 2020 Charley Domhernanadal IMMUNIZATIONS Vaccine Route Administration Date Status Influenza (6mo & up) Fluzone Unknown Aug 21, 2016 Ref used SOCIAL HISTORY Tobacco Use: Social History Observation Description Date Details (start date - stop date) Current Smoker Sex Assigned At : Social History Observation Description Sex Assigned At Unknown Audit Question Answer Notes Total Score: 13 Interpretation: Simple Advice Language: Question Answer Notes Languages spoken: Setswana Gnosticism: Question Answer Notes Gnosticism 21 Anabaptism Sexual Hx: Question Answer Notes Had sex [...] Information RESULTS No Results REASON FOR VISIT genetics results MEDICAL (GENERAL) HISTORY Type Description Date Medical [...] Details Provider Name:Tim Kelley, 2020-09 02:30:00 PM, [address] [place] [address], [id number], Provider Name:Charley Webb, 03-10-17 09:45:00 AM, [address] [place] [address], [id number], Provider Name:Charley Webb, 03-10-24 08:00:00 AM, [address] [place] [address], [id number], Provider Name:Charley Webb, 31-10-18 09:00:00 AM, [address] [place] [address], [place], [address], Insurance Providers Payer Name Payer Address Payer Phone Insured Name Patient Relati onship to Insured Coverage Start Date Coverage End Date [facility] [address] [facility] [phone] MARIA C BEATTY self
--- OUTSIDE RECORDS SUMMARY | 2020-09-30 08:08 | CCD ---
Author Author [facility] Organization [facility] Address Unknown Phone Unavailable Care Team Providers Care Lumber Scaler Name Role Phone Charley Webb Unavailable PROBLEMS Type Condition ICD9-CM Code DVL54-HE Code Onset Dates Condition S tatus SNOMED Code Notes Problem Alcoholism F10.20 Active 1837844 Problem HTN (hypertension) I10 Active 09644820 Problem Leukopenia, unspecified type D72.819 Active 848 05146 Problem Hyperlipidemia, unspecified hyperlipidemia type E7 8.5 Active 88224980 Problem Dorsalgia, unspecified M54.9 Active 343538331 Problem Tobacco abuse Z72.0 Active 375026954 Problem Anterolisthesis M43.10 Active 737038404 L5 on S1, MRI 06/20 Problem Actinic keratosis L57.0 Active 610132312 Problem Bipolar disorder, unspecified F31.9 Active 13 763375 Problem Smoker F17.200 Active 84649320 Problem Other chronic pain G89.29 Active 45702644 Problem Marijuana abuse, continuous F12.10 Active 1918 29444 Problem BPH loc w urin obs/LUTS N40.1 Active 23995509 7 Problem Enuresis, nocturnal only N39.44 Active 0521823 Problem Hyponatremia with normal extracellular fluid volume E87.1 Active 22436089 "beer potomania", see 06/30 ALLERGIES Allergen (clinical drug ingredient) Drug/Non Drug Allergy do cumented on EMR Reaction Allergy Type Onset Date Status Oxycodone Tachycardia Drug Allergy Active lisinopril angioedema 05/30 Non Drug Allergy Ac tive ENCOUNTERS from 1965 to 2020-08-20 Encounter Location Date Provider Diagnosis [facility] [address] [place] [address] Jul, Charley Webb Breast mass, right N63.10 ; Nipple disch arge in male N64.52 ; Gynecomastia N62 ; Breast pain in male N64.4 ; Family history of breast cancer Z80.3 ; Genetic testing Z13.79 ; Smoker F17.200 ; Marijuana abuse, continuous F12.10 and Alcoholism F10.20 IMMUNIZATIONS Vaccine Route Administration Date Status Influenza (6mo & up) Fluzone Unknown Aug 21, 2016 Ref used SOCIAL HISTORY Tobacco Use: Social History Observation Description Date Details (start date - stop date) Current Smoker Sex Assigned At : Social History Observation Description Sex Assigned At Unknown Audit Question Answer Notes Total Score: 13 Interpretation: Simple Advice Language: Question Answer Notes Languages spoken: Malay Restorationism: Question Answer Notes Restorationism 21 Muslim Sexual Hx: Question Answer Notes [...] FOR REFERRAL No Information VITAL SIGNS Weight 140.7 lbs Jul, Weight-kg 63.82 kg Jul, Height 67 in Jul, BMI 22.03 kg/m2 Jul, Heart Rate 77 /min Jul, Respiratory Rate 18 /min Jul, Temperature 98.7 degrees Fahrenheit Jul, Oximetry 99 Jul, Blood pressure systolic 132 mm Hg Jul, Blood pressure diastolic 70 mm Hg Jul, MEDICATIONS Medication SIG (Take, Route, Frequency, Duration) [...] Externally Twi ce a day Mon - Sun to lesion on vertex of scalp, do not pick or rub area for 42 days Jun, 0 Active PROCEDURES No Information RESULTS REASON FOR VISIT Ca+4-Intake paperwork sent, possible same day BX MEDICAL (GENERAL) HISTORY Type Description Date Medical [...] Notes Treatment Notes Treatm ent Clinical Notes Jul, Breast mass, right (ICD-10 - N63.10) I reviewed the images with Mr. Noonan and explained that his mammogram and US showed suspicious lesion in his retroareolar area at the site of palpable mass. There were also some possible pleomorphic calcs noted on mammogram at the site of the lesion. I informed patient that this lesion appeared to be suspicious and tissue sampling is needes. Since the lesion was seen on the ultrasound, the biopsy can be done with ultrasound guidance. I briefly described the procedure to the patient. I explained that after biopsy a marking clip will be placed at the site of biopsy to allow easier localization of the lesion in case biopsy comes back concerning. After the biopsy he will have a gentle mammogram to confirm the position of the clip. I briefly describe risk and possible complications of the procedure including bleeding, infection, and injury to surrounding structures (nipple, skin, muscle, lung). Patient is not on any blood thinning medications currently. The biopsy of his right retroareolar suspicious lesion will be done today and will be followed with right breast mammogram. All questions were answered. Patient agrees with the plan. Jul, Nipple discharge in male (ICD-10 - N64.52) Right breast spontaneously nipple discharge from one area. Nipple discharge is clear/ yellow I disussed with the patient that nopple discharge is uncommon in males and should be evaluated appropriately. Base on the imaging, it is possible that the hypoechoic mass represents a possible papilloma which would explain the reason for nipple discharge. The biopsy will be done today and depending on pathology further recs will follow. If papilloma is identified in the pathology then right breast excisional biopsy will be planned. If pathology does not show papilloma, then we shoudl evaliate the right spontaneous unilateral nipple discharge with MRI breast with IV contrast. All questions were answered. Patient agrees with the plan. Jul, Gynecomastia (ICD-10 - N62) I reviewed the imaging with Mr. Noonan and it is possible that his breast pain and his breast lump may be consistent with consistent with gynecomastia. We are planning to do biopsy of the lesion today to assure there is no malignancy present. I informed patient that Gynecomastia is a benign condition in which there is an increase in the amount of breast glandular tissue in men, caused by an imbalance of the hormones estrogen and testosterone, medications, alcohol, poor health condition like liver cirrhosis or kidney disease, marijuana, exogenous steroids, hormone producing tumors or from idiopathic causes. Gynecomastia can affect one or both breasts, sometimes unevenly. Generally, gynecomastia isn't a serious problem, but it can be tough to cope with the condition. Men with gynecomastia sometimes have pain in their breasts. I discussed treatment modalities of gynecomastia. In younger and healthy patients, surgical options are available where the excess breast tissue is removed. In older patients with comorbidities, pharmaceutical treatments are available. The main medications used for treatment of gynecomastia are: Tamoxi fen, Danazol, and Aromatase Inhibitors with Tamoxifen being the most commonly used first line drug. I informed patient that Tamoxifen is used as an estrogen receptor blocking medication in women with breast cancer and it is also used for chemoprophylaxis. I briefly explained possible side effects including mood variability, hot flashes, fluid retention, and most serious complication which is risk of blood clots. Prior to starting patient on any medications, I would like get the right breast biopsy results and to get baseline tests including testosterone, estradiol, FSH/LH, HCG to assess for possible organic causes of his gynecomastia. I asked patient to get those labs today after the visit. He did not start any new meds recently. All questions were answered. Patient expressed understanding and agrees with the plan. Jul, Breast pain in male (ICD-10 - N64.4) see above Jul, Family history of breast cancer (ICD-10 - Z80.3) Patient is eligible for genetic testing base on his family history. Jul, Genetic testing (ICD-10 - Z13.79) Patient participated in our cancer screening program and he was identified as a person who may be eligible for genetic testing due to his family history. Possible outcomes of genetic testing were discussed with patient with emphasis on the fact that the majority of cancers are not related to germline mutations but are rather due to somatic mutations. I have explained that the genetic testing can come back as positive for specific pathological gene mutation, as negative, or as variant of unknown significance (VUS) which means that there is duration in the gene however we do not have enough information to determine the significance importance of this ulceration. I explained to the patient that we do not asked on VUS and treat them as negative until they are reclassified as pathologically significant mutation or benign alteration. We have discussed that regardless of test outcome patient cannot have her health insurance denied in the future. Patient is interested in proceeding with genetic testing. We will provide him with the blood kit today. We will update him about the results of genetic testing when the test is completed. Jul, Smoker (ICD-10 - F17.200) Smoking cessation was recommended. Jul, Marijuana abuse, continuous (ICD-10 - F12.10) I disussed with the patient that marijuana use can increase effects of gynecomastia. Cessation was recommended. Jul, Alcoholism (ICD-10 - F10.20) I have discussed with the patient that increased alcohol use and liver disfunction can increase effects of gynecomastia. I recommended decreasing alcohol intake. Jul, Other Time spent face to face with the patient with over 50 % of time spent counseling the patient : 55 min ( this time does not include procedure time) PLAN OF TREATMENT Treatment Notes Assessment Notes Clinical Notes Breast mass, right I reviewed the images with Jordy Noonan and explained that his mammogram and US showed suspicious lesion in his retroareolar area at the site of palpable mass. There were also some possible pleomorphic calcs noted on mammogram at the site of the lesion.I informed patient that this lesion appeared to be suspicious and tissue sampling is needes.Since the lesion was seen on the ultrasound, the biopsy can be done with ultrasound guidance. I briefly described the procedure to the patient. I explained that after biopsy a marking clip will be placed at the site of biopsy to allow easier localization of the lesion in case biopsy comes back concerning. After the biopsy he will have a gentle mammogram to confirm the position of the clip.I briefly describe risk and possible complications of the procedure including bleeding, infection, and injury to surrounding structures (nipple, skin, muscle, lung).Patient is not on any blood thinning medications currently.The biopsy of his right retroareolar suspicious lesion will be done today and will be followed with right breast mammogram.All questions were answered. Patient agrees with the plan. Nipple discharge in male Right breast spontaneously n ipple discharge from one area. Nipple discharge is clear/ yellowI disussed with the patient that nopple discharge is uncommon in males and should be evaluated appropriately.Base on the imaging, it is possible that the hypoechoic mass represents a possible papilloma which would explain the reason for nipple discharge. The biopsy will be done today and depending on pathology further recs will follow.If papilloma is identified in the pathology then right breast excisional biopsy will be planned.If pathology does not show papilloma, then we shoudl evaliate the right spontaneous unilateral nipple discharge with MRI breast with IV contrast.All questions were answered. Patient agrees with the plan. Gynecomastia I reviewed the imaging with Mr. Noonan and it is possible that his breast pain and his breast lump may be consistent with consistent with gynecomastia. We are planning to do biopsy of the lesion today to assure there is no malignancy present.I informed patient that Gynecomastia is a benign condition in which there is an increase in the amount of breast glandular tissue in men, caused by an imbalance of the hormones estrogen and testosterone, medications, alcohol, poor health condition like liver cirrhosis or kidney disease, marijuana, exogenous steroids, hormone producing tumors or from idiopat hic causes. Gynecomastia can affect one or both breasts, sometimes unevenly.Generally, gynecomastia isn't a serious problem, but it can be tough to cope with the condition. Men with gynecomastia sometimes have pain in their breasts.I discussed treatment modalities of gynecomastia. In younger and healthy patients, surgical options are available where the excess breast tissue is removed. In older patients with comorbidities, pharmaceutical treatments are available. The main medications used for treatment of gynecomastia are: Tamoxifen, Danazol, and Aromatase Inhibitors with Tamoxifen being the most comm only used first line drug.I informed patient that Tamoxifen is used as an estrogen receptor blocking medication in women with breast cancer and it is also used for chemoprophylaxis. I briefly explained possible side effects including mood variability, hot flashes, fluid retention, and most serious complication which is risk of blood clots.Prior to starting patient on any medications, I would like get the right breast biopsy results and to get baseline tests including testosterone, estradiol, FSH/LH, HCG to assess for possible organic causes of his gynecomastia. I asked patient to get those labs today after the visit.He did not start any new meds recently.All questions were answered. Patient expressed understanding and agrees with the plan. Breast pain in male see above Family history of breast cancer Patient is eligible fo r genetic testing base on his family history. Genetic testing Patient participated in our cancer screening program and he was identified as a person who may be eligible for genetic testing due to his family history.Possible outcomes of genetic testing were discussed with patient with emphasis on the fact that the majority of cancers are not related to germline mutations but are rather due to somatic mutations.I have explained that the genetic testing can come back as positive for specific pathological gene mutation, as negative, or as variant of unknown significance (VUS) which means that there is duration in the gene however we do not have enough information to determine the significance importance of this ulceration. I explained to the patient that we do not asked on VUS and treat them as negative until they are reclassified as pathologically significant mutation or benign alteration.We have discussed that regardless of test outcome patient cannot have her health insurance denied in the future.Patient is interested in proceeding with genetic testing. We will provide him with the blood kit today. We will update him about the results of genetic testing when the test is completed. Smoker Smoking cessation was recommended. Marijuana abuse, continuous I disussed with the patien t that marijuana use can increase effects of gynecomastia. Cessation was recommended. Alcoholism I have discussed with the ovidio de la torre that increased alcohol use and liver disfunction can increase effects of gynecomastia. I recommended decreasing alcohol intake. Treatment Notes Test Name Order Date Digital Mammo Diagnostic Unila (Ultrasound if indicate d) 2020-08-20 [facility] US Guided Breast Biopsy (Clip Placement if Indicat ed) 2020-08-20 TESTOSTERONE FREE & TOTAL 2020-08-20 HCG SERUM TUMOR MARKER QUANT 2020-08-20 Estradiol Free and Total 2020-08-20 MRI Breast Bilat with and w/o Cont 2020-08-20 Basic Metabolic Profile (BMP) 2020-08-20 Next Appt Details Provider Name:Anand Blanc, 09-02 02:00:00 PM, [address] [facility], [address] Floor, [place], [address], Insurance Providers Payer Name Payer Address Payer Phone Insured Name Patient Relati onship to Insured Coverage Start Date Coverage End Date [facility] [address] [facility] [phone] MARIA C NOONAN self
--- OUTSIDE RECORDS SUMMARY | 2020-09-30 08:08 | CCD ---
Author Author [facility] Organization [facility] Address Unknown Phone Unavailable Care Team Providers Care Gunner'S Mate M Name Role Phone Charley Webb Unavailable PROBLEMS Type Condition ICD9-CM Code [id number] Code Onset Dates Condition S tatus SNOMED Code Notes Problem HTN (hypertension) I10 Active 52963718 Problem Hyperlipidemia, unspecified hyperlipidemia type E7 8.5 Active 39435144 Problem Alcoholism F10.20 Active 8251204 Problem Other chronic pain G89.29 Active 52305151 Problem Bipolar disorder, unspecified F31.9 Active 13 235815 Problem Dorsalgia, unspecified M54.9 Active 983419434 Problem Hyponatremia with normal extracellular fluid volume E87.1 Active 30236611 "beer potomania", see 06/30 Problem Tobacco abuse Z72.0 Active 758509640 Problem Actinic keratosis L57.0 Active 977628549 Problem Leukopenia, unspecified type D72.819 Active 848 49452 Problem Anterolisthesis M43.10 Active 899187771 L5 on S1, MRI 06/20 Problem Marijuana abuse, continuous F12.10 Active 1918 26949 Problem BPH loc w urin obs/LUTS N40.1 Active 37805439 7 Problem Enuresis, nocturnal only N39.44 Active 6783727 ALLERGIES Allergen (clinical drug ingredient) Drug/Non Drug Allergy do cumented on EMR Reaction Allergy Type Onset Date Status Oxycodone Tachycardia Drug Allergy Active lisinopril angioedema 05/30 Non Drug Allergy Ac tive ENCOUNTERS from 1965 to 2020-08-04 Encounter Location Date Provider Diagnosis [facility] [address] [place] [address] Jul, Charley Munozka IMMUNIZATIONS Vaccine Route Administration Date Status Influenza (6mo & up) Fluzone Unknown Aug 21, 2016 Ref used SOCIAL HISTORY Tobacco Use: Social History Observation Description Date Details (start date - stop date) Current Smoker Sex Assigned At : Social History Observation Description Sex Assigned At Unknown Audit Question Answer Notes Total Score: 13 Interpretation: Simple Advice Language: Question Answer Notes Languages spoken: Argentine Anabaptist: Question Answer Notes Anabaptist 21 Pentecostal Sexual Hx: Question Answer Notes Had sex [...] Notes Start Da te End Date Status Losartan Potassium 50 MG 1 tablet Orally Once a day for 90 day(s ) May, Active Norvasc 5 MG 1 tablet Orally Once a day for 90 Active Acamprosate Calcium 333 MG Oral for 30 Active Folic Acid 1 MG Oral for 30 Active Risperdal 2 MG 1 tab Orally Daily for 90 Active Mupirocin 2 % 1 application Externally Three times a d ay to scalp for 5 day(s) Oct, Not-Taking Tamsulosin HCl 0.4 MG 1 capsule Orally Once a day for 90 Active Venlafaxine HCl ER 37.5 MG 1 cap Orally Daily for 90 Active Fluorouracil 5 % 1 application Externally Twi ce a day Mon - Fri to lesion on vertex of scalp, do not pick or rub area for 42 days Jun, 0 Active PROCEDURES No Information RESULTS No Results REASON FOR VISIT S/P BX MEDICAL (GENERAL) HISTORY Type Description Date [...] polyps. Repeat in 3 years (07/2019) 07/2016 Goals Section No Information Health Concerns No Information MEDICAL EQUIPMENT No Information MENTAL STATUS No Information FUNCTIONAL STATUS No Information ASSESSMENTS No Information PLAN OF TREATMENT Next Appt Details Provider Name:Charley Webb, 02-09-03 02:30:00 PM, [address] [place], [address], Provider Name:Anand Blanc, 09-02 02:00:00 PM, [address] [facility], [address] Floor, [place], [address], Insurance Providers Payer Name Payer Address Payer Phone Insured Name Patient Relati onship to Insured Coverage Start Date Coverage End Date [facility] [address] [facility] [phone] MARIA C BEATTY self
--- OUTSIDE RECORDS SUMMARY | 2020-09-30 08:08 | CCD ---
Author Author [facility] Organization [facility] Address Unknown Phone Unavailable Care Team Providers Care Marriage And Family Therapist Name Role Phone Charley Webb Unavailable PROBLEMS Type Condition ICD9-CM Code [id number] Code Onset Dates Condition S tatus SNOMED Code Notes Problem Alcoholism F10.20 Active 8199903 Problem HTN (hypertension) I10 Active 39457075 Problem Leukopenia, unspecified type D72.819 Active 848 48533 Problem Hyperlipidemia, unspecified hyperlipidemia type E7 8.5 Active 95224899 Problem Dorsalgia, unspecified M54.9 Active 450222243 Problem Tobacco abuse Z72.0 Active 220673906 Problem Anterolisthesis M43.10 Active 982090124 L5 on S1, MRI 06/20 Problem Actinic keratosis L57.0 Active 226597116 Problem Bipolar disorder, unspecified F31.9 Active 13 317817 Problem Smoker F17.200 Active 53993995 Problem Other chronic pain G89.29 Active 67290640 Problem Marijuana abuse, continuous F12.10 Active 1918 69581 Problem BPH loc w urin obs/LUTS N40.1 Active 34337673 7 Problem Enuresis, nocturnal only N39.44 Active 4229268 Problem Hyponatremia with normal extracellular fluid volume E87.1 Active 51178040 "beer potomania", see 06/30 ALLERGIES Allergen (clinical drug ingredient) Drug/Non Drug Allergy do cumented on EMR Reaction Allergy Type Onset Date Status Oxycodone Tachycardia Drug Allergy Active lisinopril angioedema 05/30 Non Drug Allergy Ac tive ENCOUNTERS from 1965 to 2020-08-25 Encounter Location Date Provider Diagnosis [facility] [address] [place] [address] Aug, Charley Webb Breast mass, right N63.10 ; [...] Advice Language: Question Answer Notes Languages spoken: Swedish Orthodoxy: Question Answer Notes Orthodoxy 21 Sabianist Sexual Hx: Question Answer Notes Had sex [...] FOR REFERRAL No Information VITAL SIGNS Weight 144.8 lbs Aug, Weight-kg 65.68 kg Aug, Height 67 in Aug, BMI 22.68 kg/m2 Aug, Heart Rate 78 /min Aug, Respiratory Rate 18 /min Aug, Temperature 99.0 degrees Fahrenheit Aug, Oximetry 98 Aug, Blood pressure systolic 142 mm Hg Aug, Blood pressure diastolic 84 mm Hg Aug, MEDICATIONS Medication SIG (Take, Route, Frequency, Duration) [...] Information RESULTS No Results REASON FOR VISIT post bx MEDICAL (GENERAL) HISTORY Type Description Date Medical [...] Notes Treatment Notes Treatm ent Clinical Notes Aug, Breast mass, right (ICD-10 - N63.10) s/p R retroareolar US guided bx of sonographic correlate (mammographic initial target) done 08/03/20 with me I reviewed the pathology report with Mr. Noonan and explained that no malignancy was identified in the specimen. Pathology showed benign breast parenchyma with gynecomastia. No calcificatons were seen. Dr Waggoner from RAD[facility]OLOG[facility] confirmed concordance of the biopsy results on 08/09/20. I informed patient that no surgical intervention is warranted at this time, however, since patient also had a unilateral nipple discharge I would like to get MRI of the breast for further evaluate his right breast. All questions were answered. Patient agrees with the plan. Aug, Nipple discharge in male (ICD-10 - N64.52) Right breast spontaneously nipple discharge from one area. Nipple discharge is clear/ yellow initially. On today's exam the dishcarge was bloody, possibly due to recent trauma of the area. I disussed with the patient that nipple discharge is uncommon in males and should be evaluated appropriately. Biopsy of the retroareolar target lesion was done and no malignancy or papilloma were identified. I explained to the patient that this warrants further evaluation with MRI breast w and w/o contrast. I explained that patient will need kidney test prior to getting the contrast. BMP is ordered today. I will call patient with the results. Additional recs to follow. All questions were answered. Patient agrees with the plan. Aug, Gynecomastia (ICD-10 - N62) I have previously discussed with Mr. Noonan gynecomastia symptoms and treatments. The results of his pathology confirmed the presence of gynecomastia. I also informed patient that his FSH came back as 10 and LH as 3.5, both of which are normal for a male. We are still waiting for testosterone, estrodial and Hcg. We are also going to obtain MRI breast due to nipple discharge. Further recs to follow. All questions were answered. Patient expressed understanding and agrees with the plan. Aug, Breast pain in male (ICD-10 - N64.4) likely related to gynecomastia assessment in progress Aug, Family history of breast cancer (ICD-10 - Z80.3) Patient is eligible for genetic testing base on his family history. Aug, Genetic testing (ICD-10 - Z13.79) pending Aug, Smoker (ICD-10 - F17.200) Previosuly I encouraged smoking cessation. Aug, Marijuana abuse, continuous (ICD-10 - F12.10) Previously, I disussed with the patient that marijuana use can increase effects of gynecomastia. Cessation was recommended. Aug, Alcoholism (ICD-10 - F10.20) Previously, I have discussed with the patient that increased alcohol use and liver disfunction can increase effects of gynecomastia. I recommended decreasing alcohol intake. PLAN OF TREATMENT Treatment Notes Assessment Notes Clinical Notes Breast mass, right s/p R retroareolar US guide d bx of sonographic correlate (mammographic initial target) done 08/03/20 with Regan reviewed the pathology report with Mr. Noonan and explained that no malignancy was identified in the specimen. Pathology showed benign breast parenchyma with gynecomastia. No calcificatons were seen.Dr Waggoner from RADIOLOG[facility] confirmed concordance of the biopsy results on 08/09/20.I informed patient that no surgical intervention is warranted at this time, however, since patient also had a unilateral nipple discharge I would like to get MRI of the breast for further evaluate his right breast.All questions were answered. Patient agrees with the plan. Nipple discharge in male Right breast spontaneously n ipple discharge from one area. Nipple discharge is clear/ yellow initially. On today's exam the dishcarge was bloody, possibly due to recent trauma of the area.I disussed with the patient that nipple discharge is uncommon in males and should be evaluated appropriately. Biopsy of the retroareolar target lesion was done and no malignancy or papilloma were identified.I explained to the patient that this warrants further evaluation with MRI breast w and w/o contrast. I explained that patient will need kidney test prior to getting the contrast. BMP is ordered today.I will call patient with the results. Additional recs to follow.All questions were answered. Patient agrees with the plan. Gynecomastia I have previously discussed with Mr. Noonan gynecomastia symptoms and treatments.The results of his pathology confirmed the presence of gynecomastia.I also informed patient that his FSH came back as 10 and LH as 3.5, both of which are normal for a male.We are still waiting for testosterone, estrodial and Hcg.We are also going to obtain MRI breast due to nipple discharge. Further recs to follow.All questions were answered. Patient expressed understanding and agrees with the plan. Breast pain in male likely related to gynecomastiaassessment in progress Family history of breast cancer Patient is eligible fo r genetic testing base on his family history. Genetic testing pending Smoker Previosuly I encouraged smoking cessatio n. Marijuana abuse, continuous Previously, I disussed wit h the patient that marijuana use can increase effects of gynecomastia. Cessation was recommended. Alcoholism Previously, I have discussed with the patient that increased alcohol use and liver disfunction can increase effects of gynecomastia. I recommended decreasing alcohol intake. Treatment Notes Test Name Order Date MRI Breast Bilat with and w/o Cont 2020-08-25 Basic Metabolic Profile (BMP) 2020-08-25 Next Appt Details Provider Name:Anand Blanc, 09-02 02:00:00 PM, [address] [facility], [address] [facility], [place], [address], Insurance Providers Payer Name Payer Address Payer Phone Insured Name Patient Relati onship to Insured Coverage Start Date Coverage End Date [facility] COMM[employer] PLAN [facility] [address] [facility] [phone] MARIA C NOONAN self
--- OUTSIDE RECORDS SUMMARY | 2020-09-30 08:08 | CCD ---
Author Author [facility] Organization [facility] Address Unknown Phone Unavailable Care Team Providers Care Mechanic General Operational Test Name Role Phone Charley Wbeb Unavailable PROBLEMS Type Condition ICD9-CM Code [id number] Code Onset Dates Condition S tatus SNOMED Code Notes Problem HTN (hypertension) I10 Active 07853626 Problem Hyperlipidemia, unspecified hyperlipidemia type E7 8.5 Active 78206678 Problem Alcoholism F10.20 Active 9608709 Problem Other chronic pain G89.29 Active 47868014 Problem Bipolar disorder, unspecified F31.9 Active 13 699706 Problem Dorsalgia, unspecified M54.9 Active 275497201 Problem Hyponatremia with normal extracellular fluid volume E87.1 Active 88503117 "beer potomania", see 06/30 Problem Tobacco abuse Z72.0 Active 119160413 Problem Actinic keratosis L57.0 Active 773361213 Problem Leukopenia, unspecified type D72.819 Active 848 84109 Problem Anterolisthesis M43.10 Active 156612690 L5 on S1, MRI 06/20 Problem Marijuana abuse, continuous F12.10 Active 1918 30488 Problem BPH loc w urin obs/LUTS N40.1 Active 01963501 7 Problem Enuresis, nocturnal only N39.44 Active 9629037 ALLERGIES Allergen (clinical drug ingredient) Drug/Non Drug Allergy do cumented on EMR Reaction Allergy Type Onset Date Status Oxycodone Tachycardia Drug Allergy Active lisinopril angioedema 05/30 Non Drug Allergy Ac tive ENCOUNTERS from 1965 to 2020-07-01 Encounter Location Date Provider Diagnosis [facility] [address] [place] [address] Jun, Charley Munoz IMMUNIZATIONS Vaccine Route Administration Date Status Influenza (6mo & up) Fluzone Unknown Aug 21, 2016 Ref used SOCIAL HISTORY Tobacco Use: Social History Observation Description Date Details (start date - stop date) Current Smoker Sex Assigned At : Social History Observation Description Sex Assigned At Unknown Audit Question Answer Notes Total Score: 13 Interpretation: Simple Advice Language: Question Answer Notes Languages spoken: Chinese Cheondoism: Question Answer Notes Cheondoism 21 Amish Sexual Hx: Question Answer Notes Had sex [...] Notes Start Da te End Date Status Fluorouracil 5 % 1 application Externally Twi ce a day Sun - Sun to lesion on vertex of scalp, do not pick or rub area for 42 days Jun, 0 Active Mupirocin 2 % 1 application Externally Three times a d ay to scalp for 5 day(s) Oct, Active Venlafaxine HCl ER 37.5 MG 1 cap Orally Daily for 90 Active Risperdal 2 MG 1 tab Orally Daily for 90 Active Acamprosate Calcium 333 MG Oral for 30 Active Norvasc 5 MG 1 tablet Orally Once a day for 90 Active Folic Acid 1 MG Oral for 30 Active Losartan Potassium 50 MG 1 tablet Orally Once a day for 90 day(s ) May, Active Tamsulosin HCl 0.4 MG 1 capsule Orally Once a day for 90 Active PROCEDURES No Information RESULTS No Results REASON FOR VISIT r/s PROCUREMENT CLERK appt MEDICAL (GENERAL) HISTORY Type Description Date [...] Information ASSESSMENTS No Information PLAN OF TREATMENT Medication Medication Name Sig Start Date Stop Date Fluorouracil 5 % 1 application Externally Twi ce a day Mon - Fri to lesion on vertex of scalp, do not pick or rub area for 42 days Jun, Next Appt Details Provider Name:Charley Webb, 01-08-04 02:30:00 PM, [address] [place], [address], Provider Name:Anand Blanc, 09-02 02:00:00 PM, [address] [facility], [address] Floor, [place], [address], Insurance Providers Payer Name Payer Address Payer Phone Insured Name Patient Relati onship to Insured Coverage Start Date Coverage End Date [facility] [employer] [facility] [address] [facility] [phone] MARIA C BEATTY self
--- OUTSIDE RECORDS SUMMARY | 2020-09-30 08:08 | CCD ---
Author Author [facility] Organization [facility] Address Unknown Phone Unavailable Care Team Providers Care Programmer Analyst Health It Name Role Phone Charley Webb Unavailable PROBLEMS Type Condition ICD9-CM Code [id number] Code Onset Dates Condition S tatus SNOMED Code Notes Problem Alcoholism F10.20 Active 4266846 Problem HTN (hypertension) I10 Active 09874936 Problem Leukopenia, unspecified type D72.819 Active 848 41034 Problem Hyperlipidemia, unspecified hyperlipidemia type E7 8.5 Active 62405728 Problem Dorsalgia, unspecified M54.9 Active 520268611 Problem Tobacco abuse Z72.0 Active 789038713 Problem Anterolisthesis M43.10 Active 124184104 L5 on S1, MRI 06/20 Problem Actinic keratosis L57.0 Active 614215191 Problem Bipolar disorder, unspecified F31.9 Active 13 457662 Problem Smoker F17.200 Active 50704921 Problem Other chronic pain G89.29 Active 93709832 Problem Marijuana abuse, continuous F12.10 Active 1918 73649 Problem BPH loc w urin obs/LUTS N40.1 Active 47440093 7 Problem Enuresis, nocturnal only N39.44 Active 4635789 Problem Hyponatremia with normal extracellular fluid volume E87.1 Active 44295832 "beer potomania", see 06/30 ALLERGIES Allergen (clinical drug ingredient) Drug/Non Drug Allergy do cumented on EMR Reaction Allergy Type Onset Date Status Oxycodone Tachycardia Drug Allergy Active lisinopril angioedema 05/30 Non Drug Allergy Ac tive ENCOUNTERS from 1965 to 2020-08-30 Encounter Location Date Provider Diagnosis [facility] Breast Care [address] [place] [address] Jul, Charley Webb Breast mass, right N63.10 [...] Advice Language: Question Answer Notes Languages spoken: Estonian Taoism: Question Answer Notes Taoism 21 Cheondoism Sexual Hx: Question Answer Notes Had sex [...] Mammo Diagnostic Unila (Ultrasound if indicate d) 2020-08-30 [facility] US Guided Breast Biopsy (Clip Placement if Indicat ed) 2020-08-30 Estradiol Free and Total 2020-08-30 MRI Breast Bilat with and w/o Cont 2020-08-30 Basic Metabolic Profile (BMP) 2020-08-30 Next Appt Details Provider Name:Anand Blanc, 09-02 02:00:00 PM, [address] [facility], [address], [place], [address], Insurance Providers Payer Name Payer Address Payer Phone Insured Name Patient Relati onship to Insured Coverage Start Date Coverage End Date [facility] [address] [facility] [phone] MARIA C NOONAN self
--- OUTSIDE RECORDS SUMMARY | 2020-09-30 08:09 | CCD ---
Author Author [facility] Organization [facility] Address Unknown Phone Unavailable Support Name Relationship Address Phone 02/20 Next Of Kin [address] [place] [address] Next Of Kin [address] [place] [address] Marsha Fields DDS Next Of Kin [address] [place], [place] [id number] Mouna Martínez Next Of Kin Unknown Unavailable SUNOCOFACT Next Of Kin [address] [place] [address] ANUJA GIRALDO Next Of Kin Unknown ABHISHEK BEATTY Next Of Kin [address] [place] [address] ZEINA BEATTY Next Of Kin [address] [facility] [place] [place] [address] UN Next Of Kin Unknown Unavailable [place] FREIO[place] Next Of Kin [address] [place] [address] UNEMPLOYED Next Of Kin [address] [place] [address] Marsha Fields DDS Next Of Kin [address] [place] [address] OMUNA MARTÍNEZ Next Of Kin [address] [place] [address] ALEXANDREA BEATTY Next Of Kin [address] [place] [address] ROSIE CONWAY Next Of Kin [address] [place] [address] UE Next Of Kin Unknown Unavailable KATIE BEATTY Next Of Kin [address] [place] [address] mouna martínez [address] [place] [address] Care Team Providers Care 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 Name Role Phone Donya Tavarez Unavailable Yolis Ellsworth MD Unavailable Unavailable Yolis Ellsworth MD Unavailable Unavailable Yolis Ellsworth MD Unavailable Unavailable Yolis Ellsworth MD Unavailable Unavailable Yolis Ellsworth MD Unavailable Unavailable Yolis Ellsworth MD Unavailable Unavailable Yolis Ellsworth MD Unavailable Unavailable Estee Perdomo Unavailable Dille, E Marsha DDS Unavailable Unavailable Dille, E Marsha DDS Unavailable Unavailable Dille, E Marsha DDS Unavailable Unavailable Dille, E Marsha DDS Unavailable Unavailable Bassett, Dariana ASSISTANT PROFESSOR OF ENGLISH Unavailable Unavailable Bassett, Dariana ASSISTANT PROFESSOR OF ENGLISH Unavailable Unavailable Bassett, Dariana ASSISTANT PROFESSOR OF ENGLISH Unavailable Unavailable Bassett, Dariana ASSISTANT PROFESSOR OF ENGLISH Unavailable Unavailable Bassett, Dariana ASSISTANT PROFESSOR OF ENGLISH Unavailable Unavailable Bassett, Dariana ASSISTANT PROFESSOR OF ENGLISH Unavailable Unavailable Bassett, Dariana ASSISTANT PROFESSOR OF ENGLISH Unavailable Unavailable Bassett, Dariana ASSISTANT PROFESSOR OF ENGLISH Unavailable Unavailable Bassett, Dariana ASSISTANT PROFESSOR OF ENGLISH Unavailable Unavailable Bassett, Dariana ASSISTANT PROFESSOR OF ENGLISH Unavailable Unavailable Bassett, Dariana ASSISTANT PROFESSOR OF ENGLISH Unavailable Unavailable Moon, Kenia Bouchra PA Unavailable Unavailable Moon, Kenia Bouchra PA Unavailable Unavailable Moon, Kenia Bouchra PA Unavailable Unavailable Moon, Kenia Bouchra PA Unavailable Unavailable Moon, Kenia Bouchra PA Unavailable Unavailable Moon, Kenia Bouchra PA Unavailable Unavailable Moon, Kenia Bouchra PA Unavailable Unavailable Moon, Kenia Bouchra PA Unavailable Unavailable Moon, Kenia Bouchra PA Unavailable Unavailable Moon, Kenia Bouchra PA Unavailable Unavailable Rotella, Shaista Unavailable Re-disclosure Warning The records that you are about to access may contain information from federally-assisted alcohol or drug abuse programs. If such information is present, then the following federally mandated warning applies: This information has been disclosed to you from records protected by federal confidentiality rules (42 CFR part 2). The federal rules prohibit you from making any further disclosure of this information unless further disclosure is expressly permitted by the written consent of the person to whom it pertains or as otherwise permitted by 42 CFR part 2. A general authorization for the release of medical or other information is NOT sufficient for this purpose. The Federal rules restrict any use of the information to criminally investigate or prosecute any alcohol or drug abuse patient.The records that you are about to access may contain highly sensitive health information, the redisclosure of which is protected by Article 27-F of the [facility] Public Health law. If you continue you may have access to information: Regarding HIV / AIDS; Provided by facilities licensed or operated by the [facility] Office of Mental Health; or Provided by the [facility] Office for People With Developmental Disabilities. If such information is present, then the following [facility] mandated warning applies: This information has been disclosed to you from confidential records which are protected by state law. State law prohibits you from making any further disclosure of this information without the specific written consent of the person to whom it pertains, or as otherwise permitted by law. Any unauthorized further disclosure in violation of state law may result in a fine or detention sentence or both. A general authorization for the release of medical or other information is NOT sufficient authorization for further disc losure. 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 eCW1 ([facility]) Family History Family Member Name Family Member Gender Family Member Status Date o f Status Description Data Source(s) Unknown Unknown Problem MEDENT ([facility]) Encounters Encounter Providers Location Date Indications Data Source(s ) [place] [address] [facility] [address] 09/27/2020 12:00:00 AM EST eCW1 ([facility]) [place] [address] [facility] [address] 09/23/2020 12:00:00 AM EST eCW1 ([facility]) [place] [address] [facility] [address] 09/16/2020 12:00:00 AM EST eCW1 ([facility]) [place] [address] [facility] [address] 09/10/2020 12:00:00 AM EST eCW1 ([facility]) [place] [address] [facility] [address] 08/16/2020 12:00:00 AM EST eCW1 ([facility]) Unknown [address] [facility] [place] [address] 08/09/2020 12:00:00 AM EST eCW1 ([facility]) Unknown [address] [facility] [place] [address] 08/04/2020 12:00:00 AM EST eCW1 ([facility]) Outpatient [address] [facility] [place] [address] 08/03/2020 12:00:00 AM EST eCW1 ([facility]) Unknown [address] [facility] [place] [address] 07/01/2020 12:00:00 AM EST eCW1 ([facility]) Outpatient Attender: Dariana keen 06/28/2020 07:05:00 AM EST MEDENT ([facility]) Unknown [address] [facility] [place] [address] 06/25/2020 12:00:00 AM EST eCW1 ([facility]) Outpatient [address] [facility] [place] [address] 06/22/2020 12:00:00 AM EST eCW1 ([facility]) Unknown [address] [facility] [place] [address] 06/15/2020 12:00:00 AM EST eCW1 ([facility]) Unknown [address] [facility] [place] [address] 06/04/2020 12:00:00 AM EDT eCW1 ([facility]) [place] [address] [facility] [address] 06/02/2020 12:00:00 AM EDT eCW1 ([facility]) [place] [address] [facility] [address] 05/21/2020 12:00:00 AM EDT eCW1 ([facility]) [place] [address] [facility] [address] 05/21/2020 12:00:00 AM EDT eCW1 ([facility]) Outpatient Attender: Dariana keen 05/19/2020 08:00:00 AM EDT MEDENT ([facility], [facility]) Extended Individual Psychotherapy - 45 min Attender: Glenys Tavarez [facility] 05/13/2020 10:00:00 AM EDT - 05/13/2020 10:00:00 AM EDT [facility] ([facility]) Attender: Donya Tavarez 05/13/2020 12:00:00 AM EDT [facility] ([facility]) Psychiatric Diagnostic Evaluation (Non-Medical) Attender: Pam Tavarez [facility] 05/06/2020 10:00:00 AM EDT - 05/06/2020 10:00:00 AM EDT [facility] ([facility]) Attender: Donya Tavarez 05/06/2020 12:00:00 AM EDT [facility] ([facility]) TEMPMHCTelemed 30" Psychotherapy Attender: Estee Perdomo [facility] 04/14/2020 08:00:00 AM EDT - 04/14/2020 08:00:00 AM EDT [facility] ([facility]) Attender: Estee Perdomo 04/14/2020 12:00:00 AM EDT [facility] ([facility]) Outpatient Attender: Bouchra krause 02/03/2020 09:00:00 AM EDT MEDENT ([facility]) Outpatient Attender: Marsha Fields [facility] 01/20/2020 07:43:31 P M EDT [facility] Outpatient Attender: Marsha Fields [facility] 01/10/2020 12:13:24 A M EDT [facility] [address] [place] [address] 11/21/2019 12:00:00 AM EDT eCW1 ([facility]) Unknown [address] [place] [phone] 11/17/2019 12:00:00 AM EDT eCW1 ([facility]) TeleMedicine Est. Pt. Level [address] [place] [phone] 11/14/2019 12:00:00 AM EDT eCW1 ([facility]) [facility] Dermatology [address] [place] [phone] 11/14/2019 12:00:00 AM EDT eCW1 ([facility]) [address] [place] [address] 11/14/2019 12:00:00 AM EDT eCW1 ([facility]) [address] [place] [address] 11/05/2019 12:00:00 AM EDT eCW1 ([facility]) [address] [address] 11/04/2019 12:00:00 AM EDT eCW1 ([facility]) [facility] Dermatology [address] [place] [address] 10/28/2019 12:00:00 AM EDT eCW1 ([facility]) Outpatient [facility] 10/13/2019 08:32:00 PM EST [facility] Inpatient Attender: Miguelangel Ellsworth MDAdmitter: Miguelangel Zhu-DAVON 10/13/2019 06:43:00 PM EST - 10/17/2019 09:00:00 AM EST F10.20 [facility] F10.20 Patient discharged. [facility] Dermatology [address] [place] [address] 09/11/2019 12:00:00 AM EST eCW1 ([facility]) [facility] [place] [address] [facility] [address] 09/09/2019 12:00:00 AM EST eCW1 ([facility]) Health Monitoring - 30 Min Attender: Shaista Mitchell [facility] 08/15/2019 11:00:00 AM EST - 08/15/2019 11:00:00 AM EST [facility] ([facility]) Attender: Shaista Mitchell 08/15/2019 12:00:00 AM EST [facility] ([facility]) Medications Medication Brand Name Start Date Product Form Dose Route Admi nistrative Instructions Pharmacy Instructions Status Indications Reaction Description Data Source(s) 5 % 07/01/2020 12:00:00 AM EST cream 40 APPLY 1 APPLICATION TWO TIMES A DAY SUNDAY TO SUNDAY TO LESION ON VERTEX OF SCALP, DO NOT PICK OR RUB AREA APPLY 1 APPLICATION TWO TIMES A DAY SUNDAY TO SUNDAY TO LESION ON VERTEX OF SCALP, DO NOT PICK OR RUB AREA SOLD: 07/02/2020 [facility] Fluorouracil 50 MG/ML Topical Cream Fluorouracil 5 % Fluorou racil 5 % 06/30/2020 12:00:00 AM EST 1.0 {application} active Fluorouracil 5 % eCW1 ([facility]) Fluorouracil 50 MG/ML Topical Cream Fluorouracil 5 % Fluorou racil 5 % 06/30/2020 12:00:00 AM EST 1.0 {application} active Fluorouracil 5 % eCW1 ([facility]) Fluorouracil 50 MG/ML Topical Cream Fluorouracil 5 % Fluorou racil 5 % 06/30/2020 12:00:00 AM EST 1.0 {application} active Fluorouracil 5 % eCW1 ([facility]) Fluorouracil 50 MG/ML Topical Cream Fluorouracil 5 % Fluorou racil 5 % 06/30/2020 12:00:00 AM EST 1.0 {application} active Fluorouracil 5 % eCW1 ([facility]) Fluorouracil 50 MG/ML Topical Cream Fluorouracil 5 % Fluorou racil 5 % 06/30/2020 12:00:00 AM EST 1.0 {application} active Fluorouracil 5 % eCW1 ([facility]) Fluorouracil 50 MG/ML Topical Cream Fluorouracil 5 % Fluorou racil 5 % 06/30/2020 12:00:00 AM EST 1.0 {application} active Fluorouracil 5 % eCW1 ([facility]) Fluorouracil 50 MG/ML Topical Cream Fluorouracil 5 % Fluorou racil 5 % 06/30/2020 12:00:00 AM EST 1.0 {application} active Fluorouracil 5 % eCW1 ([facility]) Fluorouracil 50 MG/ML Topical Cream Fluorouracil 5 % Fluorou racil 5 % 06/30/2020 12:00:00 AM EST 1.0 {application} active Fluorouracil 5 % eCW1 ([facility]) Fluorouracil 50 MG/ML Topical Cream Fluorouracil 5 % Fluorou racil 5 % 06/30/2020 12:00:00 AM EST 1.0 {application} active Fluorouracil 5 % eCW1 ([facility]) Fluorouracil 50 MG/ML Topical Cream Fluorouracil 5 % Fluorou racil 5 % 06/30/2020 12:00:00 AM EST 1.0 {application} active Fluorouracil 5 % eCW1 ([facility]) Dextromethorphan Hydrobromide 10 MG / Guaifenesin 200 MG Oral Capsule Coricidin HBP Chest Congestion & Cough 06/28/2020 12:00:00 AM EST ORAL active MEDENT ([facility]) 4 mg 04/30/2020 12:00:00 AM EDT gum 150 CHEW 1 PIECE TO INSIDE OF MOUTH EVERY 4 HOURS NEEDED CHEW 1 PIECE TO INSIDE OF MOUTH EVERY 4 HOURS NEEDE D SOLD: 05/05/2020 [facility] 2 mg 04/20/2020 12:00:00 AM EDT tablet 30 TAKE ONE TABLET BY MOUTH EVERY DAY TAKE ONE TABLET BY MOUTH EVERY DAY SOLD: 09/04/2020 [facility] 2 mg 04/20/2020 12:00:00 AM EDT tablet 30 TAKE ONE TABLET BY MOUTH EVERY DAY TAKE ONE TABLET BY MOUTH EVERY DAY SOLD: 06/06/2020 [facility] 2 mg 04/20/2020 12:00:00 AM EDT tablet 30 TAKE ONE TABLET BY MOUTH EVERY DAY TAKE ONE TABLET BY MOUTH EVERY DAY SOLD: 04/24/2020 [facility] 2 mg 04/20/2020 12:00:00 AM EDT tablet 30 TAKE ONE TABLET BY MOUTH EVERY DAY TAKE ONE TABLET BY MOUTH EVERY DAY SOLD: 07/16/2020 [facility] 500 mg 03/07/2020 12:00:00 AM EDT tablet 28 TAKE ONE TABLET BY MOUTH TWICE A DAY TAKE ONE TABLET BY MOUTH TWICE A DAY SOLD: 03/07/2020 [facility] 5 mg 02/24/2020 12:00:00 AM EDT tablet 90 TAKE ONE TABLET BY MOUTH EVERY DAY TAKE ONE TABLET BY MOUTH EVERY DAY SOLD: 03/07/2020 [facility] 5 mg 02/24/2020 12:00:00 AM EDT tablet 90 TAKE ONE TABLET BY MOUTH EVERY DAY TAKE ONE TABLET BY MOUTH EVERY DAY SOLD: 05/31/2020 [facility] 5 mg 02/24/2020 12:00:00 AM EDT tablet 90 TAKE ONE TABLET BY MOUTH EVERY DAY TAKE ONE TABLET BY MOUTH EVERY DAY SOLD: 09/20/2020 [facility] 300-30 mg 02/03/2020 12:00:00 AM EDT tablet 30 TAKE 1 TO 2 TABLETS EVERY 6 HOURS NEEDED FOR SEVERE PAIN MAXIMUM DAILY DOSE = 8 TABLETS TAKE 1 TO 2 TABLETS EVERY 6 HOURS NEEDED FOR SEVERE PAIN MAXIMUM DAILY DOSE = 8 TABLETS SOLD: 02/03/2020 [facility] Acetaminophen 300 MG / Codeine Phosphate 30 MG Oral Ta blet Acetaminophen-Codeine #3 02/03/2020 12:00:00 AM EDT completed MEDENT ([facility]) 20 mg 02/03/2020 12:00:00 AM EDT tablet 10 TAKE ONE TABLET BY MOUTH TWICE A DAY FOR 5 DAYS TAKE ONE TABLET BY MOUTH TWICE A DAY FOR 5 DAYS SOLD: 2019 [facility] Toradol Injection Per 15 MG(30 MG) 02/03/2020 12:00:00 AM EDT completed MEDENT ([facility]) Medication administered onsite Prednisone 20 MG Oral Tablet Prednisone 02/03/2020 12:00:00 AM EDT completed MEDENT ([facility]) 2 mg 12/16/2019 12:00:00 AM EDT tablet 30 TAKE ONE TABLET BY MOUTH EVERY DAY TAKE ONE TABLET BY MOUTH EVERY DAY SOLD: 03/16/2020 [facility] 2 mg 12/16/2019 12:00:00 AM EDT tablet 30 TAKE ONE TABLET BY MOUTH EVERY DAY TAKE ONE TABLET BY MOUTH EVERY DAY SOLD: 12/16/2019 [facility] 2 mg 12/16/2019 12:00:00 AM EDT tablet 30 TAKE ONE TABLET BY MOUTH EVERY DAY TAKE ONE TABLET BY MOUTH EVERY DAY SOLD: 01/25/2020 [facility] 50 mg 11/18/2019 12:00:00 AM EDT tablet 90 TAKE ONE TABLET BY MOUTH EVERY DAY TAKE ONE TABLET BY MOUTH EVERY DAY SOLD: 09/20/2020 [facility] 50 mg 11/18/2019 12:00:00 AM EDT tablet 90 TAKE ONE TABLET BY MOUTH EVERY DAY TAKE ONE TABLET BY MOUTH EVERY DAY SOLD: 11/25/2019 [facility] 50 mg 11/18/2019 12:00:00 AM EDT tablet 90 TAKE ONE TABLET BY MOUTH EVERY DAY TAKE ONE TABLET BY MOUTH EVERY DAY SOLD: 05/31/2020 [facility] 50 mg 11/18/2019 12:00:00 AM EDT tablet 90 TAKE ONE TABLET BY MOUTH EVERY DAY TAKE ONE TABLET BY MOUTH EVERY DAY SOLD: 03/07/2020 [facility] 5 mg 11/14/2019 12:00:00 AM EDT tablet 90 TAKE ONE TABLET BY MOUTH EVERY DAY TAKE ONE TABLET BY MOUTH EVERY DAY SOLD: 11/25/2019 [facility] 0.4 mg 11/13/2019 12:00:00 AM EDT capsule 90 TAKE ONE CAPSULE BY MOUTH EVERY DAY TAKE ONE CAPSULE BY MOUTH EVERY DAY SOLD: 11/25/2019 [facility] 0.4 mg 11/13/2019 12:00:00 AM EDT capsule 90 TAKE ONE CAPSULE BY MOUTH EVERY DAY TAKE ONE CAPSULE BY MOUTH EVERY DAY SOLD: 09/20/2020 [facility] 37.5 mg 11/13/2019 12:00:00 AM EDT capsule,extended releas e 24hr 90 TAKE ONE CAPSULE BY MOUTH EVERY DAY TAKE ONE CAPSULE BY MOUTH EVERY DAY SOLD: 05/31/2020 [facility] 37.5 mg 11/13/2019 12:00:00 AM EDT capsule,extended releas e 24hr 90 TAKE ONE CAPSULE BY MOUTH EVERY DAY TAKE ONE CAPSULE BY MOUTH EVERY DAY SOLD: 09/20/2020 [facility] 0.4 mg 11/13/2019 12:00:00 AM EDT capsule 90 TAKE ONE CAPSULE BY MOUTH EVERY DAY TAKE ONE CAPSULE BY MOUTH EVERY DAY SOLD: 03/07/2020 [facility] 0.4 mg 11/13/2019 12:00:00 AM EDT capsule 90 TAKE ONE CAPSULE BY MOUTH EVERY DAY TAKE ONE CAPSULE BY MOUTH EVERY DAY SOLD: 05/31/2020 [facility] 37.5 mg 11/13/2019 12:00:00 AM EDT capsule,extended releas e 24hr 90 TAKE ONE CAPSULE BY MOUTH EVERY DAY TAKE ONE CAPSULE BY MOUTH EVERY DAY SOLD: 03/07/2020 [facility] 37.5 mg 11/13/2019 12:00:00 AM EDT capsule,extended releas e 24hr 90 TAKE ONE CAPSULE BY MOUTH EVERY DAY TAKE ONE CAPSULE BY MOUTH EVERY DAY SOLD: 11/25/2019 [facility] 24 HR Nicotine 0.875 MG/HR Transdermal Patch Nicotine 21 MG/24HR Nicotine 21 MG/24HR 11/05/2019 12:00:00 AM EDT 1.0 {patch_to_skin} suspended Nicotine 21 MG/24HR eCW1 ([facility]) 21 mg/24 hr 11/05/2019 12:00:00 AM EDT patch 24 hour 28 APPLY 1 PATCH TO SKIN DAILY APPLY 1 PATCH TO SKIN DAILY SOLD: 11/12/2019 [facility] 24 HR Nicotine 0.875 MG/HR Transdermal Patch Nicotine 21 MG/24HR Nicotine 21 MG/24HR 11/05/2019 12:00:00 AM EDT 1.0 {patch_to_skin} suspended Nicotine 21 MG/24HR eCW1 ([facility]) 24 HR Nicotine 0.875 MG/HR Transdermal Patch Nicotine 21 MG/24HR Nicotine 21 MG/24HR 11/05/2019 12:00:00 AM EDT active 1 patch to skin eCW1 ([facility]) 24 HR Nicotine 0.875 MG/HR Transdermal Patch Nicotine 21 MG/24HR Nicotine 21 MG/24HR 11/05/2019 12:00:00 AM EDT active 1 patch to skin eCW1 ([facility]) 24 HR Nicotine 0.875 MG/HR Transdermal Patch Nicotine 21 MG/24HR Nicotine 21 MG/24HR 11/05/2019 12:00:00 AM EDT 1.0 {patch_to_skin} suspended Nicotine 21 MG/24HR eCW1 ([facility]) 24 HR Nicotine 0.875 MG/HR Transdermal Patch Nicotine 21 MG/24HR Nicotine 21 MG/24HR 11/05/2019 12:00:00 AM EDT 1.0 {patch_to_skin} active Nicotine 21 MG/24HR eCW1 ([facility]) 24 HR Nicotine 0.875 MG/HR Transdermal Patch Nicotine 21 MG/24HR Nicotine 21 MG/24HR 11/05/2019 12:00:00 AM EDT 1.0 {patch_to_skin} suspended Nicotine 21 MG/24HR eCW1 ([facility]) 24 HR Nicotine 0.875 MG/HR Transdermal Patch Nicotine 21 MG/24HR Nicotine 21 MG/24HR 11/05/2019 12:00:00 AM EDT 1.0 {patch_to_skin} suspended Nicotine 21 MG/24HR eCW1 ([facility]) 24 HR Nicotine 0.875 MG/HR Transdermal Patch Nicotine 21 MG/24HR Nicotine 21 MG/24HR 11/05/2019 12:00:00 AM EDT 1.0 {patch_to_skin} suspended Nicotine 21 MG/24HR eCW1 ([facility]) 24 HR Nicotine 0.875 MG/HR Transdermal Patch Nicotine 21 MG/24HR Nicotine 21 MG/24HR 11/05/2019 12:00:00 AM EDT 1.0 {patch_to_skin} suspended Nicotine 21 MG/24HR eCW1 ([facility]) Ketoconazole 20 MG/ML Medicated Shampoo Ketoconazole 2 % Ket oconazole 2 % 10/28/2019 12:00:00 AM EDT active Ketoconazole 2 % eCW1 ([facility]) Ketoconazole 20 MG/ML Medicated Shampoo Ketoconazole 2 % Ket oconazole 2 % 10/28/2019 12:00:00 AM EDT active Ketoconazole 2 % eCW1 ([facility]) Ketoconazole 20 MG/ML Medicated Shampoo Ketoconazole 2 % Ket oconazole 2 % 10/28/2019 12:00:00 AM EDT active 5 ml to scalp, sideburns and cheeks eCW1 ([facility]) Ketoconazole 20 MG/ML Medicated Shampoo Ketoconazole 2 % Ket oconazole 2 % 10/28/2019 12:00:00 AM EDT active Ketoconazole 2 % eCW1 ([facility]) Mupirocin 0.02 MG/MG Topical Ointment Mupirocin 2 % Mupiroci n 2 % 10/28/2019 12:00:00 AM EDT 1.0 {application} suspended Mupirocin 2 % eCW1 ([facility]) Mupirocin 0.02 MG/MG Topical Ointment Mupirocin 2 % Mupiroci n 2 % 10/28/2019 12:00:00 AM EDT 1.0 {application} active Mupirocin 2 % eCW1 ([facility]) Ketoconazole 20 MG/ML Medicated Shampoo KETOCONAZOLE 10/28/19 12:00:00 AM EDT shampoo 120 APPLY SMALL AMOUNT ( 5ML) TO SCALP, SIDEBURNS AND CHEEKS ONCE DAILY APPLY SMALL AMOUNT (5ML) TO SCALP, SIDEBURNS AND CHEEK S ONCE DAILY SOLD: 10/29/2019 [facility] Mupirocin 0.02 MG/MG Topical Ointment Mupirocin 2 % Mupiroci n 2 % 10/28/2019 12:00:00 AM EDT 1.0 {application} suspended Mupirocin 2 % eCW1 ([facility]) Mupirocin 0.02 MG/MG Topical Ointment Mupirocin 2 % Mupiroci n 2 % 10/28/2019 12:00:00 AM EDT 1.0 {application} suspended Mupirocin 2 % eCW1 ([facility]) Ketoconazole 20 MG/ML Medicated Shampoo Ketoconazole 2 % Ket oconazole 2 % 10/28/2019 12:00:00 AM EDT active Ketoconazole 2 % eCW1 ([facility]) Mupirocin 0.02 MG/MG Topical Ointment Mupirocin 2 % Mupiroci n 2 % 10/28/2019 12:00:00 AM EDT 1.0 {application} active Mupirocin 2 % eCW1 ([facility]) Mupirocin 0.02 MG/MG Topical Ointment Mupirocin 2 % Mupiroci n 2 % 10/28/2019 12:00:00 AM EDT 1.0 {application} active Mupirocin 2 % eCW1 ([facility]) Ketoconazole 20 MG/ML Medicated Shampoo Ketoconazole 2 % Ket oconazole 2 % 10/28/2019 12:00:00 AM EDT active Ketoconazole 2 % eCW1 ([facility]) Ketoconazole 20 MG/ML Medicated Shampoo Ketoconazole 2 % Ket oconazole 2 % 10/28/2019 12:00:00 AM EDT active 5 ml to scalp, sideburns and cheeks eCW1 ([facility]) Mupirocin 0.02 MG/MG Topical Ointment Mupirocin 2 % Mupiroci n 2 % 10/28/2019 12:00:00 AM EDT 1.0 {application} suspended Mupirocin 2 % eCW1 ([facility]) Mupirocin 0.02 MG/MG Topical Ointment Mupirocin 2 % Mupiroci n 2 % 10/28/2019 12:00:00 AM EDT 1.0 {application} suspended Mupirocin 2 % eCW1 ([facility]) Mupirocin 0.02 MG/MG Topical Ointment Mupirocin 2 % Mupiroci n 2 % 10/28/2019 12:00:00 AM EDT 1.0 {application} active Mupirocin 2 % eCW1 ([facility]) Mupirocin 0.02 MG/MG Topical Ointment Mupirocin 2 % Mupiroci n 2 % 10/28/2019 12:00:00 AM EDT 1.0 {application} suspended Mupirocin 2 % eCW1 ([facility]) Mupirocin 0.02 MG/MG Topical Ointment Mupirocin 2 % Mupiroci n 2 % 10/28/2019 12:00:00 AM EDT active 1 applic ation eCW1 ([facility]) Mupirocin 0.02 MG/MG Topical Ointment Mupirocin 2 % Mupiroci n 2 % 10/28/2019 12:00:00 AM EDT 1.0 {application} active Mupirocin 2 % eCW1 ([facility]) Mupirocin 0.02 MG/MG Topical Ointment Mupirocin 2 % Mupiroci n 2 % 10/28/2019 12:00:00 AM EDT 1.0 {application} active Mupirocin 2 % eCW1 ([facility]) Mupirocin 0.02 MG/MG Topical Ointment Mupirocin 2 % Mupiroci n 2 % 10/28/2019 12:00:00 AM EDT 1.0 {application} suspended Mupirocin 2 % [facility] [facility] Ketoconazole 20 MG/ML Medicated Shampoo Ketoconazole 2 % Ket oconazole 2 % 10/28/2019 12:00:00 AM EDT active Ketoconazole 2 % eCW1 ([facility]) Mupirocin 0.02 MG/MG Topical Ointment Mupirocin 2 % Mupiroci n 2 % 10/28/2019 12:00:00 AM EDT 1.0 {application} suspended Mupirocin 2 % eCW1 ([facility]) Ketoconazole 20 MG/ML Medicated Shampoo Ketoconazole 2 % Ket oconazole 2 % 10/28/2019 12:00:00 AM EDT active Ketoconazole 2 % eCW1 ([facility]) Mupirocin 0.02 MG/MG Topical Ointment Mupirocin 2 % Mupiroci n 2 % 10/28/2019 12:00:00 AM EDT active 1 applic ation eCW1 ([facility]) Mupirocin 0.02 MG/MG Topical Ointment Mupirocin 2 % Mupiroci n 2 % 10/28/2019 12:00:00 AM EDT 1.0 {application} active Mupirocin 2 % eCW1 ([facility]) Mupirocin 0.02 MG/MG Topical Ointment Mupirocin 2 % Mupiroci n 2 % 10/28/2019 12:00:00 AM EDT 1.0 {application} suspended Mupirocin 2 % eCW1 ([facility]) Mupirocin 0.02 MG/MG Topical Ointment Mupirocin 2 % Mupiroci n 2 % 10/28/2019 12:00:00 AM EDT 1.0 {application} active Mupirocin 2 % eCW1 ([facility]) Ketoconazole 20 MG/ML Medicated Shampoo Ketoconazole 2 % Ket oconazole 2 % 10/28/2019 12:00:00 AM EDT active Ketoconazole 2 % eCW1 ([facility]) Mupirocin 0.02 MG/MG Topical Ointment Mupirocin 2 % Mupiroci n 2 % 10/28/2019 12:00:00 AM EDT 1.0 {application} active Mupirocin 2 % eCW1 ([facility]) 2 % 10/28/2019 12:00:00 AM EDT ointment 22 APPLY 1 APPLICATION THREE TIMES A DAY TO SCALP FOR 5 DAYS APPLY 1 APPLICATION THREE TIMES A DAY TO SCALP FOR 5 DAYS SOLD: 10/28/2019 [facility] 420 gram 10/21/2019 12:00:00 AM EDT recon soln 4000 TAKE PER DOCTOR'S INSTRUCTIONS FOR BOWEL PREP TAKE PER DOCTOR'S INSTRUCTIONS FOR BOWEL PREP SOLD: 10/28/2019 [facility] Magnesium Hydroxide 80 MG/ML Oral Suspension Milk Of Magnbrian a 10/20/2019 12:00:00 AM EDT ORAL active M EDENT ([facility], ) POLYETHYLENE GLYCOL 3350 105 MG/ML / Pot assium Chloride 0.29043 MEQ/ML / Sodium Bicarbonate 0.017 MEQ/ML / Sodium Chloride 0.0479 MEQ/ML Oral Solution [NuLytely] Nulytely With Flavor Packs 10/20/2019 12:00:00 AM EDT active MEDENT ([facility], ) 1 mg 10/17/2019 12:00:00 AM EST tablet 30 TAKE ONE TABLET BY MOUTH EVERY DAY TAKE ONE TABLET BY MOUTH EVERY DAY SOLD: 10/19/2019 [facility] 333 mg 10/17/2019 12:00:00 AM EST tablet,delayed release (DR/EC) 180 TAKE TWO TABLETS BY MOUTH THREE TIMES A DAY TAKE TWO TABLETS BY MOUTH THREE TIMES A DAY SOLD: 10/19/2019 [facility] 40 mg 10/17/2019 12:00:00 AM EST tablet,delayed release (DR/EC) 30 TAKE ONE TABLET BY MOUTH EVERY DAY TAKE ONE TABLET BY MOUTH EVERY DAY SOLD: 10/19/2019 [facility] 0.4 mg 01/08/2019 12:00:00 AM EDT capsule 90 TAKE ONE CAPSULE BY MOUTH EVERY DAY TAKE ONE CAPSULE BY MOUTH EVERY DAY SOLD: 08/22/2019 [facility] 37.5 mg 11/14/2018 12:00:00 AM EDT capsule,extended releas e 24hr 90 TAKE ONE CAPSULE BY MOUTH EVERY DAY TAKE ONE CAPSULE BY MOUTH EVERY DAY SOLD: 08/22/2019 [facility] Losartan Potassium 50 MG Oral Tablet LOSARTAN POTASSIUM 11/2018 12:00:00 AM EDT tablet 90 TAKE ONE TABLET BY MOUTH CARLITA DAY TAKE ONE TABLET BY MOUTH EVERY DAY SOLD: 08/22/2019 [facility] 2 mg 11/14/2018 12:00:00 AM EDT tablet 30 TAKE ONE TABLET BY MOUTH EVERY DAY TAKE ONE TABLET BY MOUTH EVERY DAY SOLD: 10/07/2019 [facility] 2 mg 11/14/2018 12:00:00 AM EDT tablet 30 TAKE ONE TABLET BY MOUTH EVERY DAY TAKE ONE TABLET BY MOUTH EVERY DAY SOLD: 11/12/2019 [facility] 2 mg 11/14/2018 12:00:00 AM EDT tablet 30 TAKE ONE TABLET BY MOUTH EVERY DAY TAKE ONE TABLET BY MOUTH EVERY DAY SOLD: 08/30/2019 [facility] 5 mg 10/15/2018 12:00:00 AM EST tablet 90 TAKE ONE TABLET BY MOUTH EVERY DAY TAKE ONE TABLET BY MOUTH EVERY DAY SOLD: 08/22/2019 [facility] Insurance Providers Payer name Policy type / Coverage type Policy ID Covered libertarian ID Covered libertarian's relationship to light Policy Light Plan Information [facility] [id number] SP [id number] [facility] [id number] SP [id number] [facility] [id number] SP [id number] [facility]) O [id number] S [id number] [facility] [id number] SP [id number] [facility] [id number] SP [id number] [facility] [id number] S [id number] MEDICAID [id number] S [id number] ANSI-Medicaid [id number] [facility] Health Maintenance Organization ([facility]) [id number] Self [id number] ANSI-Medicaid [id number] ANSI-Medicaid [id number] ANSI-Medicaid [id number] ANSI-Medicaid [id number] ANSI-Medicaid [id number] [facility] Health Maintenance [facility] ([facility]) [id number] Self [id number] ANSI-Medicaid [id number] ANSI-Medicaid [id number] [facility] Health Maintenance [facility] ([facility]) [id number] Self [id number] ANSI-Medicaid [id number] [facility] [id number] SP [id number] [place] BCBS Medigap Part [id number] Self [id number] [facility]/MCR Health Maintenance Organization (HMO) Self [facility](MCA[facility]) O [id number] S [id number] [employer] COMMUNITY PLAN MCDO [id number] SP [id number] MEDICAID [id number] SP [id number] D Managed Care [facility] P [id number] S [id number] Medicaid Dental S [id number] S [id number] D Managed Care [facility] P UNAVAILABLE S UNAVAILABLE Medicaid Dental S UNAVAILABLE S UN AVAILABLE [facility] [id number] SP [id number] SELF PAY UNAVAILABLE SP UNAVAILA BLE HMO BLUE [id number] SP [id number] BLUE [employer]OSS [employer]ANG[employer] PLAN [id number] SP [id number] Problems, Conditions, and Diagnoses Code Display Name Description Problem Type Effective Dates Data Source(s) F17.200 [id number] Smoker Problem 08/12/2020 12:00:00 AM ES T eCW1 ([facility]) L57.0 [id number] Actinic keratosis Problem 06/30/2020 12:00:0 0 AM EST eCW1 ([facility]) F12.20 Cannabis dependence, uncomplicated Cannabis Use Disorder, Moderate Condition 05/13/2020 12:00:00 AM EDT [facility] ([facility]) F17.200 Nicotine dependence, unspecified, uncomp licated Tobacco Use Disorder, Moderate Condition 05/13/2020 12:00:00 AM EDT [facility] ([facility]) F10.20 Alcohol dependence, uncomplicated Alcohol Use Di sorder, Moderate Condition 05/13/2020 12:00:00 AM EDT [facility] ([facility]) F31.9 Bipolar disorder, unspecified Unspecified Bipola r and Related Disorder Condition 05/13/2020 12:00:00 AM EDT [facility] ([facility]) F10.10 Alcohol abuse, uncomplicated Alcohol Use Disorder, Mil d Condition 04/14/2020 12:00:00 AM EDT [facility] ([facility]) F12.20 Cannabis dependence, uncomplicated Cannabis Use Disorder, Moderate Condition 08/15/2019 12:00:00 AM EST [facility] ([facility]) F17.213 Nicotine dependence, cigarettes, with wi thdrawal NICOTINE DEPENDENCE, CIGARETTES, WITH WITHDRAWAL Diagnosis 10/13/2019 06:43:00 PM [facility] F12.20 Cannabis dependence, uncomplicated CANNABIS DEPE NDENCE, UNCOMPLICATED Diagnosis 10/13/2019 06:43:00 PM [facility] R53.83 Other fatigue OTHER FATIGUE Diagnosis 10/13/2019 06:43:00 PM [facility] Z68.21 Body mass index (BMI) 21.0-21.9, adult B DAISY MASS INDEX (BMI) 21.0-21.9, ADULT Diagnosis 10/13/2019 06:43:00 PM [facility] E46 Unspecified protein-calorie malnutrition UNSPECIFIED PROTEIN-CALORIE MALNUTRITION Diagnosis 10/13/2019 06:43:00 PM [facility] R74.8 Abnormal levels of other serum enzymes A BNORMAL LEVELS OF OTHER SERUM ENZYMES Diagnosis 10/13/2019 06:43:00 PM [facility] E83.51 Hypocalcemia HYPOCALCEMIA Diagnosis 10/13/2019 06:43:00 P M [facility] E86.0 Dehydration DEHYDRATION Diagnosis 10/13/2019 06:43:00 PM [facility] E87.1 Hypo-osmolality and hyponatremia HYPO-OSMOLALITY AND HYPONATREMIA Diagnosis 10/13/2019 06:43:00 PM [facility] N40.0 Benign prostatic hyperplasia without low er urinary tract symptoms BENIGN PROSTATIC HYPERPLASIA WITHOUT LOWER URINRY TRACT SYMP Diagnosis 10/13/2019 06:43:00 PM [facility] Y90.6 Blood alcohol level of 120-199 mg/100 ml BLOOD ALCOHOL LEVEL OF 120-199 MG/100 ML Diagnosis 10/13/2019 06:43:00 PM [facility] F31.9 Bipolar disorder, unspecified BIPOLAR DISORDER, UNSPEC IFIED Diagnosis 10/13/2019 06:43:00 PM [facility] K21.9 Gastro-esophageal reflux disease without esophagitis GASTRO-ESOPHAGEAL REFLUX DISEASE WITHOUT ESOPHAGITIS Diagnosis 10/13/2019 06:43:00 PM ES T [facility] I10 Essential (primary) hypertension ESSENTIAL (PRIMARY) H YPERTENSION Diagnosis 10/13/2019 06:43:00 PM [facility] F10.230 Alcohol dependence with withdrawal, unco mplicated ALCOHOL DEPENDENCE WITH WITHDRAWAL, UNCOMPLICATED Diagnosis 10/13/2019 06:43:00 PM [facility] F10.220 Alcohol dependence with intoxication, un complicated ALCOHOL DEPENDENCE WITH INTOXICATION, UNCOMPLICATED Diagnosis 10/13/2019 06:43:00 PM [facility] Surgeries/Procedures Procedure Description Date Indications Data Source(s) Extended Individual Psychotherapy - 45 min 05/13/2020 12:00:00 AM EDT - 05/13/2020 12:00:00 AM EDT [facility] ([facility]) Extended Individual Psychotherapy - 45 min 0 12:00:00 AM EDT [facility] ([facility]) Psychiatric Diagnostic Evaluation (Non-Medical) 05/06/2020 12:00:00 AM EDT - 05/06/2020 12:00:00 AM EDT [facility] ([facility]) Psychiatric Diagnostic Evaluation (Non-Medical) 2019 12:00:00 AM EDT [facility] ([facility]) TEMPMHCTelemed 30" Psychotherapy 020 12:00:00 AM EDT - 04/14/2020 12:00:00 AM EDT [facility] ([facility]) TEMPMHCTelemed 30" Psychotherapy 04/14/2020 12:00:00 A M EDT [facility] ([facility]) Colonoscopy,W/Directed Submucosal Injections, Any Substance 03/04/2020 12:00:00 AM EDT MEDENT ([facility]) Colonoscopy W/ Poly 03/04/2020 12:00:00 AM EDT MEDENT ([facility]) Therapeutic, Prophylactic Or Diagnostic Injection Subq/Im 02/03/2020 12:00:00 AM EDT MEDENT ([facility]) TANGNTL BX SKIN SINGLE LES 11/21/2019 12:00:00 AM EDT eCW1 ([facility]) TANGNTL BX SKIN EA SEP/ADDL 11/21/2019 12:00:00 AM EDT eCW1 ([facility]) PHYSICIAN TELEPHONE EVALUATION 5-10 MIN 11/05/2019 12: 00:00 AM EDT eCW1 ([facility]) Group Counseling for Substance Abuse Treatment, Interp ersonal GROUP DINING ROOM HELPER FOR SUBSTANCE ABUSE TREATMENT, INTERPERSONAL 10/15/2019 12:00:00 AM [facility] Group Counseling for Substance Abuse Treatment, Cognit norah-Behavioral GROUP DINING ROOM HELPER FOR SUBSTANCE ABUSE, COGNITIVE BEHAVIORAL 10/15/2019 12:00:00 AM [facility] Individual Counseling for Substance Abuse Treatment, C ognitive-Behavioral INDIV DINING ROOM HELPER FOR SUBSTANCE ABUSE, COGNITIVE BEHAVIORAL 10/14/2019 12:00:00 AM [facility] Detoxification Services for Substance Abuse Treatment DETOXIFICATION SERVICES FOR SUBSTANCE ABUSE TREATMENT 10/14/2019 12:00:00 AM [facility] BEHAV CHNG SMOKING < 10 MIN 09/09/2019 12:00:00 AM EST eCW1 ([facility]) PREVENT MED DINING ROOM HELPER&/RISK FACTOR REDJ SPX 30 MIN 08/15/2019 12:00:00 AM EST - 08/15/2019 12:00:00 AM EST [facility] ([facility]) PREVENT MED DINING ROOM HELPER&/RISK FACTOR REDJ SPX 30 MIN 08/15 12:00:00 AM EST [facility] ([facility]) Results ID Date Data Source [id number] 09/25/2020 11:00:00 AM EST [facility] Name Value Range Interpretation Code Description Data Linda rce(s) Supporting Document(s) SARS coronavirus 2 RNA Not Detected [facility] [place] This lab was ordered by [facility] and reported by [facility]. ID Date Data Source Comprehensive Metabolic Profile (CMP) 09/23/2020 12:00:00 AM EST eCW1 ([facility]) Name Value Range Interpretation Code Description Data Linda rce(s) Supporting Document(s) 6 7-18 BLOOD UREA NITROGEN eCW1 ([facility]) 0.83 0.70-1.30 CREATININE FOR GFR eCW1 ([facility]) 78 70-100 GLUCOSE, FASTING eCW1 (Replaced by [facility]) 127 136-145 SODIUM LEVEL eCW1 ([facility]) 93 98-107 CHLORIDE LEVEL eCW1 ([facility]) 5.3 3.5-5.1 POTASSIUM SERUM eCW1 ([facility]) > 60.0 >56 GLOMERULAR FILTRATION RATE eCW 1 ([facility]) 27 21-32 CARBON DIOXIDE LEVEL eCW1 ([facility]) 8.9 8.5-10.1 CALCIUM LEVEL eCW1 ([facility]) 21 12-78 ALT/SGPT eCW1 ([facility]) 18 7-37 AST/SGOT eCW1 ([facility]) 0.5 0.2-1.0 BILIRUBIN,TOTAL eCW1 ([facility]) 3.9 3.2-5.2 ALBUMIN eCW1 ([facility]) 7.3 6.4-8.2 TOTAL PROTEIN eCW1 ([facility]) 80 45-117 ALKALINE PHOSPHATASE eCW1 ([facility]) 1.1 ALBUMIN/GLOBULIN RATIO eCW1 ([facility]) ID Date Data Source CBC with Differential 09/23/2020 12:00:00 AM EST eCW1 ([facility]) Name Value Range Interpretation Code Description Data Linda rce(s) Supporting Document(s) 5.2 4.0-10.0 WHITE BLOOD COUNT eCW1 ([facility]) 41.1 42.0-52.0 HEMATOCRIT eCW1 ([facility]) 87.4 80.0-96.0 MEAN CORPUSCULAR VOLUME e CW1 ([facility]) 14.7 13.5-17.5 HEMOGLOBIN eCW1 ([facility]) 4.70 4.30-6.10 RED BLOOD COUNT eCW1 ([facility]) 35.8 32.0-36.5 MEAN CORPUSCULAR HGB CONC eCW1 ([facility]) 12.9 11.5-14.5 RED CELL DISTRIBUTION WID TH eCW1 ([facility]) 31.3 27.0-33.0 MEAN CORPUSCULAR HEMOGLOB IN eCW1 ([facility]) 9.5 2.0-8.0 MONO % eCW1 ([facility]) 250 150-450 PLATELET COUNT, AUTOMATED eCW1 ([facility]) 48.7 24.0-44.0 LYMPH % eCW1 ([facility]) 36.3 36.0-66.0 NEUTROPHILS % eCW1 ([facility]) 1.9 1.5-8.5 NEUTROPHILS # eCW1 ([facility]) 2.5 1.5-5.0 LYMPH # eCW1 ([facility]) 3.7 0.0-3.0 EOS % eCW1 ([facility]) 1.2 0.0-1.0 BASO % eCW1 ([facility]) 0.1 0.0-0.2 BASO # eCW1 ([facility]) 0.2 0.0-0.5 EOS # eCW1 ([facility]) 0.5 0.0-0.8 MONO # eCW1 ([facility]) ID Date Data Source TESTOSTERONE FREE & TOTAL 08/03/2020 12:00:00 AM EST eCW1 ([facility]) Name Value Range Interpretation Code Description Data Linda rce(s) Supporting Document(s) 9.1 7.2-24.0 eCW1 ([facility]) 734.0 264-916 eCW1 ([facility]) ID Date Data Source HCG SERUM TUMOR MARKER QUANT 08/03/2020 12:00:00 AM EST eCW1 ([facility]) Name Value Range Interpretation Code Description Data Linda rce(s) Supporting Document(s) < 1 0-3 eCW1 ([facility]) ID Date Data Source FSH & LH EVAL 08/03/2020 12:00:00 AM EST eCW1 (Replaced by [facility]) Name Value Range Interpretation Code Description Data Linda rce(s) Supporting Document(s) 10.0 1.4-18.1 eCW1 ([facility]) 3.5 1.5-9.3 eCW1 ([facility]) ID Date Data Source [id number] 06/28/2020 12:00:00 AM EST [facility] Name Value Range Interpretation Code Description Data Linda rce(s) Supporting Document(s) SARS coronavirus 2 Ag [facility] This lab was ordered by [facility] and reported by [facility] ID Date Data Source NON MOBILE DEVELOPER CYTOLOGY REQ FOR SERVI 06/24/2020 10:30:34 AM EST eC W1 ([facility]) Name Value Range Interpretation Code Description Data Linda rce(s) Supporting Document(s) NONGYN OTHER eCW1 ([facility]) ID Date Data Source [id number] 03/04/2020 09:06:00 AM EDT MEDENT ([facility] ) Name Value Range Interpretation Code Description Data Linda rce(s) Supporting Document(s) Surgical pathology study Laboratory test result MEDENT ([facility], ) FINAL DIAGNOSIS A - Cecal polyp, polypectomy: Tubular adenoma. B - Sigmoid polyps, polypectomy: Fragments of tubular adenoma. C - Sigmoid polyp, polypectomy: Fragments of tubular adenoma. D - Rectal polyp, polypectomy: Tubular adenoma. 03/31/2020 - 1437 CLINICAL DIAGNOSIS Colon polyps 03/31/2020 - 1434 Signed Neela Groves M.D. 03/31/2020 1437 ID Date Data Source [id number] 02/28/2020 12:45:00 PM EDT [facility] Name Value Range Interpretation Code Description Data Linda rce(s) Supporting Document(s) SARS coronavirus 2 RNA [facility] This lab was ordered by [facility] and reported by [facility]. ID Date Data Source [id number] 10/15/2019 06:39:00 AM EST [facility] Glufin Result: 112 Name Value Range Interpretation Code Description Data Linda rce(s) Supporting Document(s) LAB Glucose,Fingerstick 112 mg/dL 60-115 Normal ( applies to non-numeric results) [facility] ID Date Data Source [id number] 10/15/2019 02:23:00 AM [facility] Time Collected: 215 Glufin Result: 10 2 Name Value Range Interpretation Code Description Data Linda rce(s) Supporting Document(s) LAB Glucose,Fingerstick 102 mg/dL 60-115 Normal ( applies to non-numeric results) [facility] ID Date Data Source [id number] 10/14/2019 11:49:00 PM [facility] Time Collected: 2005 Glufin Result: 11 0 Name Value Range Interpretation Code Description Data Linda rce(s) Supporting Document(s) LAB Glucose,Fingerstick 110 mg/dL 60-115 Normal ( applies to non-numeric results) [facility] ID Date Data Source [id number] 10/14/2019 07:48:00 AM [facility] Name Value Range Interpretation Code Description Data Linda rce(s) Supporting Document(s) Ethanol Less than 10.0 Above high normal [facility] ID Date Data Source [id number] 10/14/2019 07:35:00 AM [facility] Name Value Range Interpretation Code Description Data Linda rce(s) Supporting Document(s) Sodium 134 mmol/L 136-[address] [facility] ospital Potassium 3.5-5.1 Normal (applies to non-numeric resul ts) [facility] Chloride 98 mmol/L 98-107 Normal (applies to non-numeric resul ts) [facility] Carbon Dioxide CO2 21-32 Normal (applies to non-numer ic results) [facility] Anion Gap 5.0-16.0 Normal (applies to non-numeric resul ts) [facility] BUN 6 mg/dL 7-18 Below low normal [facility] spital Creatinine,Serum 0.8-1.5 Below low normal [facility] GFR >60 Normal (applies to non-numeric results) [facility] Glucose Level 91 mg/dL 60-99 Normal (applies to non-numeric re sults) [facility] Reference range is only applicable when patient is fasting Note the following drug interference: Sulfasalazine Sulfapyridine Can see falsely depressed Can see falsely elevated result with up to 17% results with up to 11% decrease in measurement increase in measurement Recommend patients be collected for this test prior to administration of either drug. Calcium 8.5-10.1 Below low normal [facility] Bilirubin,Total 0.1-1.9 Normal (applies to non-numeric results) [facility] SGOT(AST) 51 U/L 15-[address] [facility] ospital Note the following drug interference: Sulfasalazine Sulfapyridine Can see falsely depressed Can see falsely elevated result with up to 10% results with up to 10% decrease in measurement increase in measurement Recommend patients be collected for this test prior to administration of either drug. SGPT(ALT) 30 U/L 12-78 Normal (applies to non-numeric resul ts) [facility] Note the following drug interference: Sulfasalazine Sulfapyridine Can see falsely depressed Can see falsely elevated result with up to 29% results with up to 10% decrease in measurement increase in measurement Recommend patients be collected for this test prior to administration of either drug. Alkaline Phosphatase 89 U/L 38-126 Normal (applies to non-num parrish results) [facility] can increase Alkaline Phosp le vels up to 2 times the normal adult value. Normal values for children and adolescents are 2 to 3 times the normal adult value. Total Protein 6.0-8.2 Normal (applies to non-numeric re sults) [facility] Albumin Level 3.4-5.0 Below low normal [facility] ID Date Data Source [id number] 10/14/2019 07:35:00 AM EST [facility] Name Value Range Interpretation Code Description Data Linda rce(s) Supporting Document(s) Lipase 105 U/L 73-393 Normal (applies to non-numeric resul ts) [facility] ID Date Data Source [id number] 10/14/2019 07:24:00 AM EST [facility] Name Value Range Interpretation Code Description Data Linda rce(s) Supporting Document(s) White Blood Count 3.5-10.5 Normal (applies to non-numeri c results) [facility] Red Blood Count 4.30-5.70 Normal (applies to non-numeric results) [facility] Hemoglobin 13.5-17.5 Normal (applies to non-numeric resul ts) [facility] Hematocrit 38.8-50.[address] [facility] ospital Mean Corpuscular Volume 81.2-95.1 Normal (applies to non- numeric results) [facility] Mean Corpuscular Hgb 25.6-32.2 Normal (applies to non-num parrish results) [facility] Mean Corpuscular Hgb Conc 32.0-36.0 Normal (applies to no n-numeric results) [facility] Red Cell Distribution Width 11.8-15.6 Normal (appli es to non-numeric results) [facility] Platelet Count 248 x10 3/uL 150-450 Normal (applies to non-numeric results) [facility] Mean Platelet Volume 9.4-12.4 Below low normal [facility] Neutrophils% (Auto) 31.0-71.0 Normal (applies to non-nume seda results) [facility] Lymphocytes% (Auto) 20.0-55.0 Normal (applies to non-nume seda results) [facility] Monocytes% (Auto) 4.0-12.0 Normal (applies to non-numeri c results) [facility] Eosinophils% (Auto) 1.0-8.0 Normal (applies to non-nume seda results) [facility] Basophils% (Auto) 0.0-2.0 Normal (applies to non-numeri c results) [facility] Immature Granulocytes% (Auto) 0.0-2.0 Normal (miki lies to non-numeric results) [facility] Neutrophils# (Auto) 1.50-6.20 Normal (applies to non-nume seda results) [facility] Lymphocytes# (Auto) 1.20-4.00 Normal (applies to non-nume seda results) [facility] Monocytes# (Auto) 0.00-0.90 Normal (applies to non-numeri c results) [facility] Eosinophils# (Auto) 0.00-0.50 Normal (applies to non-nume seda results) [facility] Basophils# (Auto) 0.00-0.20 Normal (applies to non-numeri c results) [facility] Immature Granulocytes# (Auto) 0.00-7.00 No rmal (applies to non-numeric results) [facility] ID Date Data Source [id number] 10/14/2019 01:17:00 AM [facility] Name Value Range Interpretation Code Description Data [facility] rce(s) Supporting Document(s) LAB Glucose,Fingerstick 99 mg/dL 60-115 Normal (applies t o non-numeric results) [facility] ID Date Data Source [id number] 10/13/2019 10:50:00 PM [facility] Time Collected: 2244 Glufin Result: 98 Name Value Range Interpretation Code Description Data Linda rce(s) Supporting Document(s) LAB Glucose,Fingerstick 98 mg/dL 60-115 Normal (applies t o non-numeric results) [facility] ID Date Data Source [id number] 10/15/2019 03:18:00 PM [facility] Name Value Range Interpretation Code [facility]) Hepatitis A Ab,IgG result Normal (applies to no n-numeric results) [facility] Result indicates no past exposure or imm unity to hepatitis A infection. REFERENCE VALUE Unvaccinated: Negative Vaccinated: Positive Test Performed by: [facility] [place] [address] Technical Service Rep: Alec Rasmussen M.D. Ph.D.; CLIA# [id number] ID Date Data Source [id number] 10/15/2019 01:48:00 PM [facility] Name Value Range Interpretation Code Description Data [facility] rce(s) Supporting Document(s) Hepatitis A Ab,IgG result Normal (applies to no n-numeric results) [facility] Result indicates no past exposure or imm unity to hepatitis A infection. REFERENCE VALUE Unvaccinated: Negative Vaccinated: Positive Test Performed by: [facility] [address] [place] [address] Technical Service Rep: Alec Rasmussen M.D. Ph.D.; CLIA# [id number] ID Date Data Source [id number] 10/13/2019 09:11:00 PM [facility] Name Value Range Interpretation Code Description Data [facility] rce(s) Supporting Document(s) Sodium 131 mmol/L 136-[address] [facility] ospital Potassium 3.5-5.1 Normal (applies to non-numeric resul ts) [facility] Chloride 95 mmol/L 98-107 Below low normal [facility] spital Carbon Dioxide CO2 21-32 Normal (applies to non-numer ic results) [facility] Anion Gap 5.0-16.0 Normal (applies to non-numeric resul ts) [facility] BUN 5 mg/dL 7-18 Below low normal [facility] spital Creatinine,Serum 0.8-1.5 Below low normal [facility] GFR >60 Normal (applies to non-numeric results) [facility] Glucose Level 98 mg/dL 60-99 Normal (applies to non-numeric re sults) [facility] Reference range is only applicable when patient is fasting Note the following drug interference: Sulfasalazine Sulfapyridine Can see falsely depressed Can see falsely elevated result with up to 17% results with up to 11% decrease in measurement increase in measurement Recommend patients be collected for this test prior to administration of either drug. Calcium 8.5-10.1 Below low normal [facility] spital Bilirubin,Total 0.1-1.9 Normal (applies to non-numeric results) [facility] SGOT(AST) 47 U/L 15-[address] [facility] ospital Note the following drug interference: Sulfasalazine Sulfapyridine Can see falsely depressed Can see falsely elevated result with up to 10% results with up to 10% decrease in measurement increase in measurement Recommend patients be collected for this test prior to administration of either drug. SGPT(ALT) 32 U/L 12-78 Normal (applies to non-numeric resul ts) [facility] Note the following drug interference: Sulfasalazine Sulfapyridine Can see falsely depressed Can see falsely elevated result with up to 29% results with up to 10% decrease in measurement increase in measurement Recommend patients be collected for this test prior to administration of either drug. Alkaline Phosphatase 87 U/L 38-126 Normal (applies to non-num parrish results) [facility] can increase Alkaline Phosp le vels up to 2 times the normal adult value. Normal values for children and adolescents are 2 to 3 times the normal adult value. Total Protein 6.0-8.2 Normal (applies to non-numeric re sults) [facility] Albumin Level 3.4-5.0 Below low normal [facility] ID Date Data Source [id number] 10/13/2019 09:11:00 PM [facility] Name Value Range Interpretation Code Description Data Linda rce(s) Supporting Document(s) Bilirubin,Direct 0.05-0.20 Normal (applies to non-numeric results) [facility] ID Date Data Source [id number] 10/13/2019 09:11:00 PM [facility] Value Range Interpretation Code Description Data Linda rce(s) Supporting Document(s) Phosphorus 2.5-4.9 Normal (applies to non-numeric resul ts) [facility] ID Date Data Source [id number] 10/13/2019 09:11:00 PM [facility] Name Value Range Interpretation Code Description Data Linda rce(s) Supporting Document(s) Troponin I 0.000-0.056 Normal (applies to non-numeric resu lts) [facility] ID Date Data Source [id number] 10/13/2019 09:11:00 PM [facility] Name Value Range Interpretation Code Description Data Linda rce(s) Supporting Document(s) Magnesium 1.8-2.4 Normal (applies to non-numeric resul ts) [facility] ID Date Data Source [id number] 10/13/2019 09:11:00 PM [facility] Value Range Interpretation Code Description Data Linda rce(s) Supporting Document(s) Thyroid Stimulate Hormone TSH 0.358-3.74 No rmal (applies to non-numeric results) [facility] ID Date Data Source [id number] 10/14/2019 03:09:00 PM [facility] Value Range Interpretation Code Description Data Linda rce(s) Supporting Document(s) CPK result 73 U/L 39-308 Normal (applies to non-numeric resul ts) [facility] Test Performed By: [facility] [address] [place] [address] Director: Sadia Galvan MD ID Date Data Source [id number] 10/14/2019 03:09:00 PM [facility] Value Range Interpretation Code Description Data Linda rce(s) Supporting Document(s) Hepatitis C Virus Ab result Nonreactive Norm al (applies to non-numeric results) [facility] Test Performed By: [facility] [address] [place] [address] Director: Sadia Galvan MD ID Date Data Source [id number] 10/14/2019 03:09:00 PM [facility] Value Range Interpretation Code Description Data Linda rce(s) Supporting Document(s) Hep Bs Ag result T-Test Nonreactive Normal (applies to non -numeric results) [facility] Test Performed By: [facility] [address] [place] [address] Director: Sadia Galvan MD ID Date Data Source [id number] 10/14/2019 03:09:00 PM EST [facility] Name Value Range Interpretation Code Description Data Linda rce(s) Supporting Document(s) Syphilis Serology result Nonreactive Normal (applies to non-numeric results) [facility] Test Performed By: [place] [address] Director: Sadia Galvan MD ID Date Data Source [id number] 10/14/2019 03:09:00 PM [facility] Value Range Interpretation Code Description Data Linda rce(s) Supporting Document(s) Chlamydia,Urine result Negative Normal (applies to non-n umeric results) [facility] Test Performed By: [place] [address] Director: Sadia Galvan MD . GC Urine result Negative Normal (applies to non-numeric results) [facility] Test Performed By: [place] [address] Director: Sadia Galvan MD . Methodology: Second generation nucleic acid amplification. ID Date Data Source [id number] 10/14/2019 02:09:00 PM EST [facility] Value Range Interpretation Code Description Data Linda rce(s) Supporting Document(s) Chlamydia,Urine Negative Normal (applies to non-numeric results) [facility] Test Performed By: [facility] [address] [place] [address] Director: Sadia Galvan MD . GC Urine Negative Normal (applies to non-numeric resul ts) [facility] Test Performed By: [place] [address] Director: Sadia Galvan MD . Methodology: Second generation nucleic acid amplification. ID Date Data Source [id number] 10/13/2019 11:28:00 PM EST [facility] Value Range Interpretation Code Description Data Linda rce(s) Supporting Document(s) Hep C Ab-T Test Nonreactive Normal (applies to non-numeric results) [facility] Test Performed By: [facility] [address] [place] [address] Director: Sadia Galvan MD ID Date Data Source [id number] 10/13/2019 11:28:00 PM [facility] Value Range Interpretation Code Description Data Linda rce(s) Supporting Document(s) Hep Bs Ag Result T-Test Nonreactive Normal (applies to non -numeric results) [facility] Test Performed By: [facility] [address] [place] [address] Director: Sadia Galvan MD ID Date Data Source [id number] 10/13/2019 11:28:00 PM [facility] Value Range Interpretation Code Description Data Linda rce(s) Supporting Document(s) Syphilis Serology Nonreactive Normal (applies to non-numer ic results) [facility] Test Performed By: [facility] [address] [place] [address] Director: Sadia Galvan MD ID Date Data Source [id number] 10/13/2019 10:21:00 PM EST [facility] Value Range Interpretation Code Description Data Linda rce(s) Supporting Document(s) CPK 73 U/L 39-308 Normal (applies to non-numeric resul ts) [facility] Test Performed By: [facility] [address] [place] [address] Director: Sadia Galvan MD ID Date Data Source [id number] 10/13/2019 08:35:00 PM [facility] Name Value Range Interpretation Code Description Data Linda rce(s) Supporting Document(s) Ethanol Less than 10.0 Above high normal [facility] read back critical information 10/02 MARQUIS ID Date Data Source [id number] 10/13/2019 07:42:00 PM [facility] Name Value Range Interpretation Code Description Data Linda rce(s) Supporting Document(s) White Blood Count 3.5-10.5 Normal (applies to non-numeri c results) [facility] Red Blood Count 4.30-5.70 Normal (applies to non-numeric results) [facility] Hemoglobin 13.5-17.5 Normal (applies to non-numeric resul ts) [facility] Hematocrit 38.8-50.0 Normal (applies to non-numeric resul ts) [facility] Mean Corpuscular Volume 81.2-95.1 Normal (applies to non- numeric results) [facility] Mean Corpuscular Hgb 25.6-32.2 Normal (applies to non-num parrish results) [facility] Mean Corpuscular Hgb Conc 32.0-36.0 Normal (applies to no n-numeric results) [facility] Red Cell Distribution Width 11.8-15.6 Normal (appli es to non-numeric results) [facility] Platelet Count 242 x10 3/uL 150-450 Normal (applies to non-numeric results) [facility] Mean Platelet Volume 9.4-12.4 Below low normal [facility] Neutrophils% (Auto) 31.0-71.0 Normal (applies to non-nume seda results) [facility] Lymphocytes% (Auto) 20.0-55.0 Normal (applies to non-nume seda results) [facility] Monocytes% (Auto) 4.0-12.0 Normal (applies to non-numeri c results) [facility] Eosinophils% (Auto) 1.0-8.0 Normal (applies to non-nume seda results) [facility] Basophils% (Auto) 0.0-2.0 Normal (applies to non-numeri c results) [facility] Immature Granulocytes% (Auto) 0.0-2.0 Normal (miki lies to non-numeric results) [facility] Neutrophils# (Auto) 1.50-6.20 Normal (applies to non-nume seda results) [facility] Lymphocytes# (Auto) 1.20-4.00 Normal (applies to non-nume seda results) [facility] Monocytes# (Auto) 0.00-0.90 Normal (applies to non-numeri c results) [facility] Eosinophils# (Auto) 0.00-0.50 Normal (applies to non-nume seda results) [facility] Basophils# (Auto) 0.00-0.20 Normal (applies to non-numeri c results) [facility] Immature Granulocytes# (Auto) 0.00-7.00 No rmal (applies to non-numeric results) [facility] ID Date Data Source [id number] 10/13/2019 08:18:00 PM EST [facility] Imaging Services Department Imaging Report [address], [place] [address] %(RAD)RES..mtdd.print.filter("line") Name: MARIA C BEATTY : 1965 Age/Sex: 54M Ordering Provider: Miguelangel Ellsworth MD Med Rec #: [id number] Reg Status: ADM IN Room #: 123-1 Date of Service: 10/13/19 Report Number: [id number] cc:Miguelangel Ellsworth MD; PCP None Send Report To: EXAM: CT Head Without IV contrast. CLINICAL HISTORY: GH poorly responsiveness TECHNIQUE: Axial computed tomography images of the head/brain without intravenous contrast. COMPARISON: None provided. FINDINGS: BRAIN: No acute intraparenchymal hemorrhage. No mass lesion. No CT evidence foracute territorial infarct. No midline shift or extra-axial collections. VENTRICLES: No hydrocephalus. ORBITS: The orbits are unremarkable. SINUSES AND MASTOIDS: The paranasal sinuses and mastoid air cells are clear. BONES: No fracture. SOFT TISSUES: Unremarkable.Impressions: No acute intracranial abnormality. Time portable performed: Fluoroscopy time in seconds: Number of Exposures: Contrast Agent in ml: Method of Administration: REPORT SIGNATURE ON FILE Reported By: Jerry Wakefield MD 10/13/192017 Dictation Date/Time: 10/13/192017 Transcribed Date/Time: 10/13/192017 Computer Architect: Name Value Range Interpretation Code Description Data Linda rce(s) Supporting Document(s) ID Date Data Source [id number] 10/13/2019 08:18:00 PM [facility] Imaging Services Department Imaging Report [address], [place] [address] %(RAD)RES..mtdd.print.filter("line") Name: MARIA C BEATTY : 1965 Age/Sex: 54M Ordering Provider: Miguelangel Ellsworth MD Med Rec #: [id number] Reg Status: ADM IN Room #: 123-1 Date of Service: 10/13/19 Report Number: [id number] cc:Miguelangel Ellsworth MD; PCP None Send Report To: EXAM: CR Chest, 1 View. CLINICAL HISTORY: GH poorly responsive COMPARISON: None provided. FINDINGS: LUNGS: There is no mass, infiltrate, or acute pulmonary abnormality. PLEURAL SPACES: No pleural effusion or pneumothorax. MEDIASTINUM: The cardiomediastinal silhouette is within normal limits. BONES: No acute osseous abnormality.Impressions: No acute cardiopulmonary pathology is evident. Time portable performed: 2004 Fluoroscopy time in seconds: Number of Exposures: Contrast Agent in ml: Method of Administration: REPORT SIGNATURE ON FILE Reported By: Jerry Wakefield MD 10/13/192017 Dictation Date/Time: 10/13/192017 Transcribed Date/Time: 10/13/192017 Computer Architect: Name Value Range Interpretation Code Description Data [facility] rce(s) Supporting Document(s) ID Date Data Source [id number] 10/13/2019 09:26:00 PM [facility] Collected By: Nurse's Aide Initials: CC Time Collected: 1999 Collected By: Nurse's Aide Initials: CC Time Collected: 1999 Name Value Range Interpretation Code Description Data [facility] rce(s) Supporting Document(s) Color,Urine Colorl-Dk Y Normal (applies to non-numeric res ults) [facility] Clarity,Urine Clear Normal (applies to non-numeric re sults) [facility] Specific [place],Urine 1.005-1.030 Normal (applies to non- numeric results) [facility] pH,Urine 5.0-8.0 Normal (applies to non-numeric resul ts) [facility] Protein,Urine Negative Normal (applies to non-numeric re sults) [facility] Glucose,Urine Negative Normal (applies to non-numeric re sults) [facility] Ketones,Urine Negative Normal (applies to non-numeric re sults) [facility] Negative Normal (applies to non-numeric results) [facility] Urobilinogen,Urine 0.2-1.0 Normal (applies to non-numer ic results) [facility] Leukocyte Esterase,Urine Negative Normal (applies to non -numeric results) [facility] Nitrite,Urine Negative Normal (applies to non-numeric re sults) [facility] ID Date Data Source [id number] 10/13/2019 09:26:00 PM [facility] Collected By: Nurse's Aide Initials: CC Time Collected: 1999 Collected By: Nurse's Aide Initials: CC Time Collected: 1999 Name Value Range Interpretation Code Description Data [facility] rce(s) Supporting Document(s) RBC,Urine None Seen [facility] WBC,Urine None Seen Normal (applies to non-numeric resul ts) [facility] Casts,Urine None Seen Normal (applies to non-numeric resu lts) [facility] Squamous Cells,Urine None Seen [facility] Bacteria,Urine None Seen Normal (applies to non-numeric r esults) [facility] ID Date Data Source [id number] 10/13/2019 08:01:00 PM EST [facility] Name Value Range Interpretation Code Description Data Linda rce(s) Supporting Document(s) UDS Phencyclidine Screen Negative Normal (applies to non -numeric results) [facility] UDS Benzodiazepines Screen Negative Normal (applies to n on-numeric results) [facility] UDS Cocaine Screen Negative Normal (applies to non-numer ic results) [facility] UDS Ampetamine Screen Negative Normal (applies to non-nu meric results) [facility] UDS Cannabinoids Screen Negative [facility] UDS Opiates Screen Negative Normal (applies to non-numer ic results) [facility] UDS Barbiturates Screen Negative Normal (applies to non- numeric results) [facility] UDS Tricyclic Screen Negative Normal (applies to non-num parrish results) [facility] Therapeutic Drug Ranges for Emergency Threshold Levels (ng/mL) PCP 25 Benzodiazepine 300 Cocaine 300 Amphetamines 1000 Cannabinoids 50 Opiates 300 Barbiturates 300 Tricyclic(TCA) 1000 Emergency toxicology analytes exceeding the therapeutic threshold levels are positive. Positive findings are unconfirmed. Positive drug levels may be confirmed at the request of the ordering provider. Results are to be used for medical treatment purposes only. Procedure Social History Code Duration Value Status Description Data Source(s ) Smoking 09/23/2020 12:00:00 AM EST Current Smoker completed Curre nt Smoker eCW1 ([facility]) Smoking 09/23/2020 12:00:00 AM EST Current Smoker completed Curre nt Smoker eCW1 ([facility]) Smoking 08/16/2020 12:00:00 AM EST Current Smoker completed Curre nt Smoker eCW1 ([facility]) Smoking 08/16/2020 12:00:00 AM EST Current Smoker completed Curre nt Smoker eCW1 ([facility]) Smoking 08/16/2020 12:00:00 AM EST Current Smoker completed Curre nt Smoker eCW1 ([facility]) Smoking 08/16/2020 12:00:00 AM EST Current Smoker completed Curre nt Smoker eCW1 ([facility]) Smoking 08/16/2020 12:00:00 AM EST Current Smoker completed Curre nt Smoker eCW1 ([facility]) Smoking 08/16/2020 12:00:00 AM EST Current Smoker completed Curre nt Smoker eCW1 ([facility]) Smoking 08/03/2020 12:00:00 AM EST Current Smoker completed Curre nt Smoker eCW1 ([facility]) Smoking 06/30/2020 12:00:00 AM EST Current Smoker completed Curre nt Smoker eCW1 ([facility]) Smoking 06/22/2020 12:00:00 AM EST Current Smoker completed Curre nt Smoker eCW1 ([facility]) Smoking 06/22/2020 12:00:00 AM EST Current Smoker completed Curre nt Smoker eCW1 ([facility]) Smoking 05/21/2020 12:00:00 AM EDT Current Smoker completed Curre nt Smoker eCW1 ([facility]) Smoking 05/21/2020 12:00:00 AM EDT Current Smoker completed Curre nt Smoker eCW1 ([facility]) Smoking 05/21/2020 12:00:00 AM EDT Current Smoker completed Curre nt Smoker eCW1 ([facility]) Smoking 05/21/2020 12:00:00 AM EDT Current Smoker completed Curre nt Smoker eCW1 ([facility]) Smoking 05/21/2020 12:00:00 AM EDT Current Smoker completed Curre nt Smoker eCW1 ([facility]) Smoking 05/13/2020 12:00:00 AM EDT Unknown if ever smoked comp leted Unknown if ever smoked [facility] ([facility]) Smoking 05/06/2020 12:00:00 AM EDT Unknown if ever smoked comp leted Unknown if ever smoked [facility] ([facility]) Smoking 04/14/2020 12:00:00 AM EDT Unknown if ever smoked comp leted Unknown if ever smoked [facility] ([facility]) Smoking 08/15/2019 12:00:00 AM EST Unknown if ever smoked comp leted Unknown if ever smoked [facility] ([facility]) Vital Signs ID Date Data Source UNK Name Value Range Interpretation Code Description Data Source(s) Diastolic blood pressure 72 mm[Hg] 72 mm[Hg] eCW1 ([facility]) Systolic blood pressure 138 mm[Hg] 138 mm[Hg] e CW1 ([facility]) Body temperature 98.3 [degF] 98.3 [degF] eCW1 ( [facility]) Respiratory rate 18 /min 18 /min eCW1 ([facility]) Heart rate 88 /min 88 /min eCW1 ([facility]) Body mass index (BMI) [Ratio] 23.02 kg/m2 23.02 kg/m2 eCW1 ([facility]) Body height 67 [in_i] 67 [in_i] eCW1 ([facility]placed [facility]) Body weight 147 [lb_av] 147 [lb_av] eCW1 ([facility]) Diastolic blood pressure 84 mm[Hg] 84 mm[Hg] eCW1 ([facility]) Systolic blood pressure 142 mm[Hg] 142 mm[Hg] e CW1 ([facility]) Body temperature 99.0 [degF] 99.0 [degF] eCW1 ( [facility]) Respiratory rate 18 /min 18 /min eCW1 ([facility]) Heart rate 78 /min 78 /min eCW1 ([facility]) Body mass index (BMI) [Ratio] 22.68 kg/m2 22.68 kg/m2 W1 ([facility]) Body height 67 [in_i] 67 [in_i] eCW1 (Replaced by [facility]) Body weight 65.68 kg 65.68 kg eCW1 (Replaced by [facility]) Body weight 144.8 [lb_av] 144.8 [lb_av] eCW1 ([facility] [place]) Diastolic blood pressure 70 mm[Hg] 70 mm[Hg] eCW1 ([facility]) Systolic blood pressure 132 mm[Hg] 132 mm[Hg] e CW1 ([facility]) Body temperature 98.7 [degF] 98.7 [degF] eCW1 ( [facility]) Respiratory rate 18 /min 18 /min eCW1 ([facility]) Heart rate 77 /min 77 /min eCW1 ([facility]) Body mass index (BMI) [Ratio] 22.03 kg/m2 22.03 kg/m2 eCW1 ([facility]) Body height 67 [in_i] 67 [in_i] eCW1 (Replaced by [facility]) Body weight 63.82 kg 63.82 kg eCW1 (Replaced by [facility]) Body weight 140.7 [lb_av] 140.7 [lb_av] eCW1 ([facility] [place]) Diastolic blood pressure 70 mm[Hg] 70 mm[Hg] eCW1 ([facility]) Systolic blood pressure 132 mm[Hg] 132 mm[Hg] e CW1 ([facility]) Body temperature 98.7 [degF] 98.7 [degF] eCW1 ( [facility]) Respiratory rate 18 /min 18 /min eCW1 ([facility]) Heart rate 77 /min 77 /min eCW1 ([facility]) Body mass index (BMI) [Ratio] 22.03 kg/m2 22.03 kg/m2 eCW1 ([facility]) Body height 67 [in_i] 67 [in_i] eCW1 (Replaced by [facility]) Body weight 63.82 kg 63.82 kg eCW1 (Replaced by [facility]) Body weight 140.7 [lb_av] 140.7 [lb_av] eCW1 ([facility] [place]) Body mass index (BMI) [Ratio] 21.1 kg/m2 21.1 k g/m2 MEDENT ([facility], [facility]) Body height 67 [in_i] 67 [in_i] MEDENT ([facility], [facility]) 5'7" Body weight 135.00 [lb_av] 135.00 [lb_av] MEDEN T ([facility], [facility]) Body temperature 98.1 [degF] 98.1 [degF] MEDENT ([facility], [facility]) Oxygen saturation in Arterial blood by Pulse oximetry 97 % 97 % MEDENT ([facility], [facility]) Respiratory rate 18 /min 18 /min MEDENT ( [facility], [facility]) Heart rate 83 /min 83 /min MEDENT ([facility], [facility]) Diastolic blood pressure 96 mm[Hg] 96 mm[Hg] MEDENT ([facility], [facility]) Systolic blood pressure 157 mm[Hg] 157 mm[Hg] M EDENT ([facility], [facility]) Diastolic blood pressure 78 mm[Hg] 78 mm[Hg] eCW1 ([facility]) Systolic blood pressure 138 mm[Hg] 138 mm[Hg] e CW1 ([facility]) Body temperature 98.5 [degF] 98.5 [degF] eCW1 ( [facility]) Respiratory rate 20 /min 20 /min eCW1 ([facility]) Heart rate 95 /min 95 /min eCW1 ([facility]) Body mass index (BMI) [Ratio] 22.86 kg/m2 22.86 kg/m2 eCW1 ([facility]) Body height 67 [in_i] 67 [in_i] eCW1 (Replaced by [facility]) Body weight 146 [lb_av] 146 [lb_av] eCW1 ([facility]) Diastolic blood pressure 84 mm[Hg] 84 mm[Hg] eCW1 ([facility]) Systolic blood pressure 140 mm[Hg] 140 mm[Hg] e CW1 ([facility]) Body temperature 98.2 [degF] 98.2 [degF] eCW1 ( [facility]) Respiratory rate 20 /min 20 /min eCW1 ([facility]) Heart rate 86 /min 86 /min eCW1 ([facility]) Body mass index (BMI) [Ratio] 23.80 kg/m2 23.80 kg/m2 W1 ([facility]) Body height 67 [in_i] 67 [in_i] eCW1 (Replaced by [facility]) Body weight 152 [lb_av] 152 [lb_av] eCW1 ([facility]) Body mass index (BMI) [Ratio] 21.1 kg/m2 21.1 k g/m2 MEDENT ([facility], [facility]) Body height 67 [in_i] 67 [in_i] MEDENT ([facility], [facility]) 5'7" Body weight 135.00 [lb_av] 135.00 [lb_av] MEDEN T ([facility], [facility]) Body temperature 98.0 [degF] 98.0 [degF] MEDENT ([facility], [facility]) Oxygen saturation in Arterial blood by Pulse oximetry 98 % 98 % MEDENT ([facility], [facility]) Respiratory rate 16 /min 16 /min MEDENT ( [facility], [facility]) Heart rate 80 /min 80 /min MEDENT ([facility], [facility]) Diastolic blood pressure 94 mm[Hg] 94 mm[Hg] MEDENT ([facility], [facility]) Systolic blood pressure 158 mm[Hg] 158 mm[Hg] M EDENT ([facility], [facility]) Body mass index (BMI) [Ratio] 21.1 kg/m2 21.1 k g/m2 MEDENT ([facility], [facility]) Body height 67 [in_i] 67 [in_i] MEDENT ([facility], [facility]) 5'7" Body weight 135.00 [lb_av] 135.00 [lb_av] MEDEN T ([facility], [facility]) Body temperature 97.8 [degF] 97.8 [degF] MEDENT ([facility], [facility]) Oxygen saturation in Arterial blood by Pulse oximetry 97 % 97 % MEDENT ([facility], [facility]) Respiratory rate 16 /min 16 /min MEDENT ( [facility], [facility]) Heart rate 81 /min 81 /min MEDENT ([facility], [facility]) Diastolic blood pressure 78 mm[Hg] 78 mm[Hg] MEDENT ([facility], [facility]) Systolic blood pressure 133 mm[Hg] 133 mm[Hg] M EDENT ([facility], [facility]) Diastolic blood pressure 82 mm[Hg] 82 mm[Hg] eCW1 ([facility]) Systolic blood pressure 142 mm[Hg] 142 mm[Hg] e CW1 ([facility]) Body mass index (BMI) [Ratio] 24.90 kg/m2 24.90 kg/m2 eCW1 ([facility]) Body height 67 [in_us] 67 [in_us] eCW1 (Replaced by [facility]) Body weight Measured 159 [lb_av] 159 [lb_av] eC W1 ([facility]) Body surface area Derived from formula 1.81 m2 1.81 m2 [facility] Body weight 69.854 kg 69.854 kg [facility] ([facility]) [place] body weight 148 [lb_av] 148 [lb_av] MEDEN T ([facility]) Body mass index (BMI) [Ratio] 24.1 kg/m2 24.1 k g/m2 [facility] ([facility], ) Body weight 154.00 [lb_av] 154.00 [lb_av] MEDEN T ([facility], ) Body height 67 [in_i] 67 [in_i] [facility] ([facility]) 5'7" Diastolic blood pressure 82 mm[Hg] 82 mm[Hg] [facility], ) Systolic blood pressure 132 mm[Hg] 132 mm[Hg] M EDENT ([facility]) Diastolic blood pressure 78 mm[Hg] 78 mm[Hg] eCW1 ([facility]) Systolic blood pressure 144 mm[Hg] 144 mm[Hg] e CW1 ([facility]) Body temperature 98.3 [degF] 98.3 [degF] eCW1 ( [facility]) Respiratory rate 22 /min 22 /min eCW1 ([facility]) Heart rate 110 /min 110 /min eCW1 ([facility]) Body mass index (BMI) [Ratio] 23.80 kg/m2 23.80 kg/m2 eCW1 ([facility]) Body height 67 [in_us] 67 [in_us] eCW1 (Replaced by [facility]) Body weight Measured 152 [lb_av] 152 [lb_av] eC W1 ([facility]) ID Date Data Source [id number] 10/15/2019 01:48:00 PM EST [facility] Name Value Range Interpretation Code Description Data Source(s) Weight (Calculated Kilograms) 80.29 80.29 [facility] Height (Calculated Centimeters) 170.18 170. 18 [facility] Body Mass Index (BMI) 27.7 27.7 [facility] ID Date Data Source [id number] 10/21/2019 08:22:00 AM EDT [facility] Name Value Range Interpretation Code Description Data Source(s) Weight Measurement Method 1 1 [facility] Weight (Calculated Kilograms) 65.41 65.41 [facility] Weight [address] [facility] Temperature Source 7 7 [facility] Temperature 98.8 98.8 [facility] spital Respiratory Effort 1 1 [facility] Respiratory Rate 18 18 [facility] Pulse Assessment Method [address] [facility] Pulse Rate [address] [facility] Height (Calculated Centimeters) 172.72 172. 72 [facility] Height 68 68 [facility] Blood Pressure 140/86 140/86 [facility] Body Mass Index (BMI) 21.9 21.9 [facility] Weight Measurement Method 1 1 [facility] Weight (Calculated Kilograms) 65.41 65.41 [facility] Weight 2307.2 2307.2 [facility] pital Temperature Source 7 7 [facility] Temperature 98.8 98.8 [facility] Respiratory Effort 1 1 [facility] Respiratory Rate 18 18 [facility] Pulse Assessment Method [address] [facility] Pulse Rate 102 102 [facility] pital Height (Calculated Centimeters) 172.72 172. 72 [facility] Height 68 68 [facility] pital Blood Pressure 140/86 140/86 [facility] Body Mass Index (BMI) 21.9 21.9 [facility] Weight Measurement Method 1 1 [facility] Weight (Calculated Kilograms) 65.41 65.41 [facility] Weight 2307.2 2307.2 [facility] pital Temperature Source 7 7 [facility] Temperature 98.8 98.8 [facility] Respiratory Effort 1 1 [facility] Respiratory Rate 18 18 [facility] Pulse Assessment Method [address] [facility] Pulse Rate 102 102 [facility] pital Height (Calculated Centimeters) 172.72 172. 72 [facility] Height 68 68 [facility] pital Blood Pressure 140/86 140/86 [facility] Body Mass Index (BMI) 21.9 219 [facility] Weight Measurement Method 1 1 [facility] Weight (Calculated Kilograms) 65.41 65.41 [facility] Weight 2307.2 2307.2 [facility] pital Temperature Source 7 7 [facility] Temperature 99.4 99.4 [facility] Respiratory Effort 1 1 [facility] Respiratory Rate 18 18 [facility] Pulse Assessment Method [address] [facility] Pulse Rate 84 84 [facility] pital Height (Calculated Centimeters) 172.72 172. 72 [facility] Height 68 68 [facility] pital Blood Pressure 120/73 120/73 [facility] Body Mass Index (BMI) 21.[address] [place] [address] Weight Measurement Method 1 1 [facility] Weight (Calculated Kilograms) 65.41 65.41 [facility] Weight 2307.2 2307.2 [facility] pital Temperature Source 7 7 [facility] Temperature 99.2 99.2 [facility] spital Respiratory Effort 1 1 [facility] Respiratory Rate 22 22 [facility] Pulse Assessment Method [address] [facility] Pulse Rate [address] [facility] Height (Calculated Centimeters) 172.72 172. 72 [facility] Height 68 68 [facility] Blood Pressure 156/88 156/88 [facility] Body Mass Index (BMI) 21.9 21.9 [facility] Patient Treatment Plan of Care Planned Activity Planned Date Details Description Data Source (s) Fluorouracil 50 MG/ML Topical Cream 06/30/2020 12:00:00 AM EST eCW1 ([facility]) 24 HR Nicotine 0.875 MG/HR Transdermal Patch 11/05/2019 12:00:00 AM EDT eCW1 ([facility])
[2020-09-30] MEDS ORDERED: BUPIVACAINE HCL 0.25% 30ML VIAL As Ordered ONE (09:13)
[2020-09-30] MEDS ORDERED: LIDOCAINE 1% SDV 30ML VIAL As Ordered ONE (09:13)
[2020-09-30 09:18] LABS: BLOOD UREA NITROGEN 11 MG/DL (7-18); CALCIUM LEVEL 8.7 MG/DL (8.5-10.1); CARBON DIOXIDE LEVEL 27 MEQ/L (21-32); CHLORIDE LEVEL 95 MEQ/L (98-107); CREATININE FOR GFR 0.92 MG/DL (0.70-1.30); GLOMERULAR FILTRATION RATE > 60.0 (>56); GLUCOSE, FASTING 92 MG/DL (70-100); POTASSIUM SERUM 4.9 MEQ/L (3.5-5.1); SODIUM LEVEL 129 MEQ/L (136-145)
[2020-09-30] MEDS ORDERED: ROCURONIUM BROMIDE 50 MG/5 ML VIAL As Ordered ONE (10:15)
[2020-09-30] MEDS ORDERED: fentaNYL 250 MCG/5 ML INJECTION (J3010) As Ordered ONE (10:15)
[2020-09-30] MEDS ORDERED: SUGAMMADEX SODIUM 500 MG/5 ML VIAL (BRIDION) As Ordered ONE (10:15)
[2020-09-30] MEDS ORDERED: propofoL 200 MG/20 ML VIAL As Ordered ONE (10:15)
[2020-09-30] MEDS ORDERED: MIDAZOLAM INJ 2MG/2ML VIAL (J2250 PER 1MG) As Ordered ONE (10:15)
[2020-09-30] MEDS ORDERED: LIDOCAINE 2% 100MG/5ML SDV (FOR ANES.) As Ordered ONE (10:15)
[2020-09-30] MEDS ORDERED: dexameTHASONE 4 MG/ML 1ML VIAL (J1100 PER 1MG) As Ordered ONE (10:15)
[2020-09-30] MEDS ORDERED: ONDANSETRON 4MG/2ML VIAL As Ordered ONE (10:15)
[2020-09-30] MEDS ORDERED: METOCLOPRAMIDE INJ 10MG/2ML VIAL (J2765 PER 1) As Ordered ONE (10:15)
[2020-09-30] MEDS ORDERED: ALBUTEROL 6.7GM INHALER **FOR ANES. CART/OMNICELL ONLY As Ordered ONE (10:18)
[2020-09-30] MEDS ORDERED: ACETAMINOPHEN 1000MG 100ML IV BTL (OFIRMEV) (J0131 PER 10MG) As Ordered ONE (10:24)
[2020-09-30] MEDS ORDERED: ePHEDrine SULFATE 25 MG/5 ML(5MG/ML) SYRINGE As Ordered ONE (10:35)
[2020-09-30] MEDS ORDERED: LACRILUBE (AKWA TEARS) OPHTH OINT 3.5 GM As Ordered ONE (10:55)
[2020-09-30] MEDS ORDERED: ACET1TAB16 PO (11:56)
[2020-09-30] MEDS ORDERED: oxyCODONE 5MG TAB PO PRN (12:15)
[2020-09-30] MEDS ORDERED: fentaNYL 100 MCG/2 ML INJECTION (J3010) IV PRN (12:15)
[2020-09-30] MEDS ORDERED: ONDANSETRON 4MG/2ML VIAL IV PRN (12:15)
[2020-09-30] MEDS ORDERED: LR 1,000 ML IV SCH (12:15)
[2020-09-30 13:00] VITALS: BP 164/79
--- NOTE | 2020-09-30 14:42 | REP ---
INDICATION: RIGHT BREAST EXCISIONAL BIOPSY WITH INTRAOP WIRE PLACEMENT. COMPARISON: Comparison breast sonography 08/03/2020.. TECHNIQUE: Sonographic guidance. FINDINGS: Ultrasound guidance is provided to Dr. Webb performed ultrasound-guided retroareolar needle localization placement. IMPRESSION: Sonographic guidance. <Electronically signed by Bijan Waggoner > 09/30/20 [id number]
--- NOTE | 2020-09-30 16:41 | REP ---
INDICATION: RIGHT BREAST BIOPSY. COMPARISON: Comparison mammography August 03, 2020.. TECHNIQUE: Single specimen radiograph. FINDINGS: Specimen radiography demonstrates a needle biopsy marker clip and the a [place] needle wire localization device within the removed specimen. No other tissue features are seen radiographically. IMPRESSION: Marker clip is seen within the specimen. <Electronically signed by Bijan Waggoner > 09/30/20 [id number]
--- NOTE | 2020-10-02 22:05 | ROOPDOC ---
[facility] Report Of Operation Report of Operation DATE OF PROCEDURE: 09/30/20 PREPROCEDURE DIAGNOSES: Painful right breast gynecomastia and the right breast nipple discharge POSTPROCEDURE DIAGNOSES: The same PROCEDURE: Right breast excisional biopsy with Intra-Op wire placement and right breast central duct excision SURGEON: Virginia Webb ANESTHESIA: General anesthetic ESTIMATED BLOOD LOSS: Approximately 5 mL. COMPLICATIONS: None REMARKS: The wire and the clip are noted on the specimen radiography DESCRIPTION OF PROCEDURE: INDICATIONS: Mr. Noonan is a 55-year-old man who presented to the clinic with painful right breast lump, BIRADS4 diagnostic imaging and Right nipple discharge. He underwent Right breast ultrasound guided biopsy which showed gynecomastia at the site of suspicious sonographic finding. There was no papilloma which could explain the nipple discharge. He underwent MRI of the breast and no suspicious findings were identified. I presented patient with medical and surgical treatment of gynecomastia. Since patient also has a unilateral nipple discharge, surgical treatment is preferred. I offered patient a right breast excisional biopsy with intraoperative wire placement and right central duct excision. He was medically cleared for surgery by his primary care doctor. Risks and possible complications of surgical procedure including bleeding, infection and injury to surrounding structures including nipple necrosis, were explained to the patient and he wished to proceed. Consent was signed. My initials were placed on the operative site. Subcutaneous injection of 5000 units of heparin was done in prior to surgery. DETAILS: Patient was taken to the operating room and placed on the operating room table. A sign in was called stating patients name, date of and the procedure to be done. Preoperative antibiotics were infused. Smooth induction of general anesthesia was done. Patients hands were extended on arm rests. Care was taken not to over extend the arms. Pillow was placed under the knees and a foam was placed under the heels. Sequential compression devices were placed and assured to function correctly. Procedure was started with right breast intraop wire localization. Appropriate time out was done and patients name, date of , and the procedure to be done were confirmed. Right breast was cleaned by me. Intraoperative ultrasound was used again to confirm location of the [employer] clip. Location of the clip was marked on the skin as well. 21 G [employer] Breast Lesion Localization Needle was used to place 25 cm wire. The wire was placed next to the clip and the hypoechoic lesion. The end of the wire was passed slightly distal to the clip. The images were captured confirming adequate placement of the localizing wire. Renal Technician assisted with the wire placement. Next, patients right breast and axilla were prepped and draped in the usual fashion. Care was taken not to displace the wire. Appropriate time out was done again prior second part of the procedure. Patients name, date of , and the procedure to be done were confirmed. Next, local anesthetic using 1% lidocaine and 0.25 % Marcaine 50/50 mix was injected at the site of planned inferior periareolar incision. The incision was made with the scalpel. Subcutaneous skin flaps were raised and the guide wire was carefully pulled into the wound. Careful superior sharp dissection was carried along the wire in the subareolar space until the end of the wire was palpated. Hockey stick probe was used to guide the dissection to assure that the [employer] clip is in the specimen tissue. Since the clip and the tissue of interest were in the subareolar area, the central ducts were removed along with the excised tissue. The excisional biopsy specimen was carefully removed from the breast keeping its proper orientation and moved to the back table where margins were marked with the surgical inking kit following the standard colors recommendations. Specimen was then placed on the grid and placed in [employer] Specimen Imaging System. The image revealed the wire and the [employer] in the specimen. The specimen was labeled with patients name and right excisional biopsy and sent to pathology. At this point the right breast wound was re-examined and some denser tissue consistent with gynecomastia was noted at the lateral site of excised tissue. Additional sharp dissection was carried to remove this tissue as the patient previously reported pain in this area. The new specimen was called additional right breast lateral tissue and the true/ new margin was marked with orange ink. Next, the wound was irrigated thoroughly and adequate hemostasis was assured. Additional local anesthetic was injected into surrounding tissues. space was approximated with 2-0 Vicryl. The dermis was closed with 3-0 Monocryl and skin was closed with 4-0 Monocryl. Surgical glue was placed over the incision. Patient emerged from the anesthesia without any problems. Fluffs were placed over the operative site and patients chest was wrapped snuggly in the KAMIN[employer] wrap. Sponge and instrument counts were done and were correct. Patient tolerated procedure well and was taken to recovery unit in stable condition. DOMBROWSKA,VIRGINIA K. DO Oct 02, 2020 22:05
== END 2020-09-30 13:54 | disposition home or self-care (01) ==
LOC: M SDC 08:04
PROVIDERS: ATTEND Surgery
DX: N62 Hypertrophy of breast (principal); N64.52 Nipple discharge; F31.9 Bipolar disorder, unspecified; I10 Essential (primary) hypertension; F17.210 Nicotine dependence, cigarettes, uncomplicated; F10.20 Alcohol dependence, uncomplicated; D72.819 Decreased white blood cell count, unspecified; M54.9 Dorsalgia, unspecified; F41.9 Anxiety disorder, unspecified; N40.0 Benign prostatic hyperplasia without lower urinary tract symptoms; Z79.899 Other long term (current) drug therapy; Z88.5 Allergy status to narcotic agent
CPT/HCPCS: 19083; 19120; 36415; 80048; 86850; 86900; 86901; 88305; 88307; J0131; J0690; J1100; J1644; J2250; J2405; J2765; J3010

== ENCOUNTER 2021-02-10 18:45 | Emergency (ER) | payer OTHER ==
[~2021-02-10] VITALS: Ht 170.2 cm; Wt 63.6 kg
[2021-02-10 18:45] VITALS: BP 123/77
[~2021-02-10 18:45] MED LIST changes: +ACET1TAB16 PO; -HEPARIN SOD (PORCINE) 5000UNITS/ML 1ML VIAL/SYRINGE SQ ONE; -LIDOCAINE 1% MDV 20ML VIAL SQ PRN; -LR 1,000 ML IV ONE; -ceFAZolin SOD 2 GM in IV 1 EA IV ONE
[2021-02-10] MEDS ORDERED: NAPR220C14 PO (18:52)
[2021-02-10] MEDS ORDERED: traMADol 50 MG TAB PO ONE (20:50)
--- NOTE | 2021-02-10 22:26 | REPVR ---
PROCEDURE INFORMATION: Exam: XR Right Knee Exam date and time: 02/10/2021 9:10 PM Age: 55 years old Clinical indication: Other: Pain TECHNIQUE: Imaging protocol: XR Right knee. Views: 4 or more views. COMPARISON: No relevant prior studies available. FINDINGS: Bones/joints: Joint spaces are normal. No fracture or malalignment. Soft tissues: Soft tissues are unremarkable. IMPRESSION: No fracture or malalignment. PROCEDURE INFORMATION: Exam: XR Left Knee Exam date and time: 02/10/2021 9:10 PM Age: 55 years old Clinical indication: Other: Pain TECHNIQUE: Imaging protocol: XR Left knee. Views: 4 or more views. COMPARISON: No relevant prior studies available. FINDINGS: Bones/joints: Joint spaces are normal. No fracture or malalignment. Soft tissues: Soft tissues are unremarkable. IMPRESSION: No fracture or malalignment. Electronically signed by: Manuelito Ko On 02/10/2021 22:26:00 PM
[2021-02-10] MEDS ORDERED: TRAM50TA2 PO (23:55)
== END 2021-02-11 01:02 | disposition home or self-care (01) ==
LOC: M ED 18:45
DX: M17.0 Bilateral primary osteoarthritis of knee (principal); I10 Essential (primary) hypertension; F31.9 Bipolar disorder, unspecified; F17.290 Nicotine dependence, other tobacco product, uncomplicated; Z88.5 Allergy status to narcotic agent

== ENCOUNTER → 2021-02-25 | Outpatient (CLI) | payer OTHER ==
[~2021-02-25] MED LIST changes: +NAPR220C14 PO; +TRAM50TA2 PO
--- NOTE | 2021-02-25 16:23 | REP ---
INDICATION: BILATERAL KNEE PAIN. COMPARISON: Comparison knee radiographs are from February 10, 2021.. TECHNIQUE: Standing AP view of both knees as requested. FINDINGS: There is no evidence of medial or lateral knee joint space narrowing on either side. There is some vascular calcification bilaterally. No bony erosive change. IMPRESSION: No joint space narrowing seen. <Electronically signed by Bijan Waggoner > 02/25/21 [id number]
== END ==
LOC: M SOG 14:47
PROVIDERS: ATTEND Orthopaedic Surgery Adult Reconstructive Orthopaedic Surgery
DX: M25.561 Pain in right knee (principal); M25.562 Pain in left knee

== ENCOUNTER → 2021-05-25 | Outpatient (CLI) | payer OTHER | LOC: M LABSMTC 09:52 | PROVIDERS: ATTEND Pediatrics | DX: R05.9 Cough, unspecified (principal) ==

== ENCOUNTER → 2021-06-22 | Outpatient (REF) ==
[2021-06-23 06:41] LABS: HERPES ZOSTER, VARICELLA IgG <135 index (Immune >165); RUBEOLA IgG ANTIBODY >300.0 AU/mL (Immune >16.4)
== END ==
LOC: M LAB 10:08
PROVIDERS: ATTEND Nurse Practitioner Adult Health
DX: Z02.1 Encounter for pre-employment examination (principal)

== ENCOUNTER → 2022-11-07 | Outpatient (REF) | payer OTHER ==
[~2022-11-07] MED LIST changes: -ACET1TAB16 PO; +ACET300T48 PO; +LOSA50TA28 PO; -LOSA50TA88 PO
== END ==
LOC: M SFHCADAM 10:40
PROVIDERS: ATTEND Family Medicine
DX: Z53.9 Procedure and treatment not carried out, unspecified reason (principal)

== ENCOUNTER → 2022-11-07 | Outpatient (CLI) | payer OTHER | LOC: M ADAMS 10:53 | PROVIDERS: ATTEND Family Medicine | DX: M16.12 Unilateral primary osteoarthritis, left hip (principal) ==

== ENCOUNTER → 2022-11-08 | Outpatient (REF) | payer OTHER ==
[2022-11-08 13:43] LABS: HEMOGLOBIN 14.2 g/dl (13.5-17.5); MEAN CORPUSCULAR HEMOGLOBIN 32.4 pg (27.0-33.0); MEAN CORPUSCULAR HGB CONC 34.6 g/dl (32.0-36.5); MEAN CORPUSCULAR VOLUME 93.6 fl (80.0-96.0); PLATELET COUNT, AUTOMATED 230 10^3/uL (150-450); RED BLOOD COUNT 4.38 10^6/uL (4.30-6.10); WHITE BLOOD COUNT 5.7 10^3/uL (4.0-10.0)
[2022-11-08 14:09] LABS: ALBUMIN 3.9 G/DL (3.2-5.2); ALKALINE PHOSPHATASE 73 U/L (46-116); ALT/SGPT 14 U/L (7.0-40); AST/SGOT 23 U/L (<34); BILIRUBIN,TOTAL 0.7 MG/DL (0.3-1.2); BLOOD UREA NITROGEN 15 MG/DL (9-23); CARBON DIOXIDE LEVEL 27 MMOL/L (20-31); CHLORIDE LEVEL 95 MMOL/L (98-107); CHOLESTEROL LEVEL 154 MG/DL (<200); CHOLESTEROL RISK RATIO 2.46 (<5); CREATININE FOR GFR 0.76 MG/DL (0.70-1.30); FOLATE 10.64 NG/ML (>5.4); FREE T4 1.36 NG/DL (0.89-1.76); GLOMERULAR FILTRATION RATE > 60.0 (>56); GLUCOSE, FASTING 95 MG/DL (60-100); HDL CHOLESTEROL 62.5 MG/DL (>40); LDL CHOLESTEROL 73.3 MG/DL (<100); MAGNESIUM LEVEL 1.8 MG/DL (1.8-2.4); NON-HDL-C 91.5 MG/DL; POTASSIUM SERUM 4.5 MMOL/L (3.5-5.1); SODIUM LEVEL 129 MMOL/L (136-145); THYROID STIMULATING HORMONE 2.721 uIU/ML (0.55-4.78); TOTAL PROTEIN 6.9 G/DL (5.7-8.2); TRIGLYCERIDES LEVEL 91 MG/DL (<150)
[2022-11-08 14:15] LABS: VITAMIN B12 LEVEL 460 PG/ML (211-911)
[2022-11-08 14:28] LABS: OSMOLALITY SERUM 275 MOSM/KG (275-295)
== END ==
LOC: M SFHCADAM 07:37
PROVIDERS: ATTEND Family Medicine
DX: M16.11 Unilateral primary osteoarthritis, right hip (principal); F31.9 Bipolar disorder, unspecified; I10 Essential (primary) hypertension; E87.1 Hypo-osmolality and hyponatremia; Z12.5 Encounter for screening for malignant neoplasm of prostate; F10.20 Alcohol dependence, uncomplicated; E78.5 Hyperlipidemia, unspecified

== ENCOUNTER → 2023-10-10 | Outpatient (REF) | payer OTHER | LOC: M SFHCADAM 10:35 | PROVIDERS: ATTEND Family Medicine | DX: I10 Essential (primary) hypertension (principal); E78.5 Hyperlipidemia, unspecified; F31.9 Bipolar disorder, unspecified; Z12.5 Encounter for screening for malignant neoplasm of prostate ==

== ENCOUNTER → 2024-06-10 | Outpatient (CLI) | payer OTHER ==
[~2024-06-10] MED LIST changes: +RISP-106 PO; -RISP-9 PO
== END ==
LOC: M ADAMS 15:32
PROVIDERS: ATTEND Family Medicine
DX: M25.552 Pain in left hip (principal); M54.50 Low back pain, unspecified; M89.8X5 Other specified disorders of bone, thigh; R93.7 Abnormal findings on diagnostic imaging of other parts of musculoskeletal system

== ENCOUNTER → 2024-06-12 | Outpatient (CLI) | payer OTHER | LOC: M ADAMS 11:05 | PROVIDERS: ATTEND Family Medicine | DX: M87.059 Idiopathic aseptic necrosis of unspecified femur (principal); R93.89 Abnormal findings on diagnostic imaging of other specified body structures ==

== ENCOUNTER → 2024-07-29 | Outpatient (REF) | payer OTHER ==
[2024-07-29 18:04] LABS: ALBUMIN 3.8 G/DL (3.2-5.2); ALKALINE PHOSPHATASE 154 U/L (40-129); ALT/SGPT 19 U/L (7.0-40); AST/SGOT 25 U/L (<34); BILIRUBIN,TOTAL 0.5 MG/DL (0.3-1.2); BLOOD UREA NITROGEN 9 MG/DL (9-23); CALCIUM LEVEL 9.4 MG/DL (8.5-10.1); CARBON DIOXIDE LEVEL 26 MMOL/L (20-31); CHLORIDE LEVEL 96 MMOL/L (98-107); CHOLESTEROL LEVEL 164 MG/DL (<200); CHOLESTEROL RISK RATIO 2.48 (<5); GLOMERULAR FILTRATION RATE > 60.0 (>56); GLUCOSE, FASTING 88 MG/DL (60-100); LDL CHOLESTEROL 68.2 MG/DL (<100); POTASSIUM SERUM 4.3 MMOL/L (3.5-5.1); SODIUM LEVEL 127 MMOL/L (136-145); TOTAL PROTEIN 7.8 G/DL (5.7-8.2); TRIGLYCERIDES LEVEL 149 MG/DL (<150)
[2024-07-29 18:05] LABS: C REACTIVE PROTEIN QUANTITATIV < 0.50 MG/DL (<1.0)
[2024-07-29 18:06] LABS: FREE T4 1.39 NG/DL (0.89-1.76); THYROID STIMULATING HORMONE 2.421 uIU/ML (0.55-4.78)
[2024-07-29 18:08] LABS: HEMOGLOBIN 12.9 g/dl (13.5-17.5); MEAN CORPUSCULAR HEMOGLOBIN 31.8 pg (27.0-33.0); MEAN CORPUSCULAR HGB CONC 33.9 g/dl (32.0-36.5); MEAN CORPUSCULAR VOLUME 93.6 fl (80.0-96.0); PLATELET COUNT, AUTOMATED 311 10^3/uL (150-450); RED BLOOD COUNT 4.06 10^6/uL (4.30-6.10); WHITE BLOOD COUNT 5.7 10^3/uL (4.0-10.0)
== END ==
LOC: M SFHCADAM 13:54
PROVIDERS: ATTEND Family Medicine
DX: M43.17 Spondylolisthesis, lumbosacral region (principal); M87.00 Idiopathic aseptic necrosis of unspecified bone; E78.5 Hyperlipidemia, unspecified; E87.1 Hypo-osmolality and hyponatremia

== ENCOUNTER → 2024-09-06 | Outpatient (CLI) | payer OTHER | LOC: M RAD 10:39 | PROVIDERS: ATTEND Orthopaedic Surgery | DX: M47.816 Spondylosis without myelopathy or radiculopathy, lumbar region (principal); M87.852 Other osteonecrosis, left femur; S32.512A Fracture of superior rim of left pubis, initial encounter for closed fracture; M87.052 Idiopathic aseptic necrosis of left femur; M87.051 Idiopathic aseptic necrosis of right femur ==

== ENCOUNTER → 2024-11-12 | Outpatient (CLI) | payer OTHER | LOC: M WHC 10:56 | PROVIDERS: ATTEND Family Medicine | DX: M85.89 Other specified disorders of bone density and structure, multiple sites (principal) ==

== ENCOUNTER 2024-12-01 11:12 | Observation (INO) | payer OTHER ==
[~2024-12-01] VITALS: Ht 170.2 cm; Wt 73.0 kg
[~2024-12-01 11:12] MED LIST changes: -FLOM0.4C39 PO; +TAMS-18 PO
[2024-12-01] MEDS: ONDANSETRON 4MG 2ML VIAL IV ONE (12:16)
[2024-12-01] MEDS: MORPHINE 4 MG/ML 1ML VIAL IV ONE (12:16)
[2024-12-01] MEDS ORDERED: ISOVUE-370 76% 100ML VIAL As Ordered ONE (12:36)
[2024-12-01 12:43] LABS: BASO % 0.2 % (0.0-1.0); EOS % 0.2 % (0.0-3.0); HEMATOCRIT 29.9 % (42.0-52.0); HEMOGLOBIN 10.7 g/dl (13.5-17.5); LYMPH # 1.3 10^3/uL (1.5-5.0); LYMPH % 14.1 % (24.0-44.0); MEAN CORPUSCULAR HGB CONC 35.8 g/dl (32.0-36.5); MEAN CORPUSCULAR VOLUME 89.5 fl (80.0-96.0); MONO # 0.9 10^3/uL (0.0-0.8); MONO % 9.7 % (2.0-8.0); NEUTROPHILS # 6.9 10^3/uL (1.5-8.5); NEUTROPHILS % 75.1 % (36.0-66.0); PLATELET COUNT, AUTOMATED 241 10^3/uL (150-450); RED BLOOD COUNT 3.34 10^6/uL (4.30-6.10); WHITE BLOOD COUNT 9.2 10^3/uL (4.0-10.0)
[2024-12-01 13:00] LABS: CK-MB VALUE MASS < 1.0 NG/ML (<3.6)
[2024-12-01 13:01] LABS: ETHYL ALCOHOL (ETHANOL) 0.007 % (0.000-0.010); LIPASE 16 U/L (12-53)
[2024-12-01 13:03] LABS: ALBUMIN 2.5 G/DL (3.2-5.2); ALKALINE PHOSPHATASE 94 U/L (40-129); ALT/SGPT 12 U/L (7.0-40); AST/SGOT 18 U/L (<34); BILIRUBIN,DIRECT 0.2 MG/DL (<0.4); BILIRUBIN,TOTAL 0.5 MG/DL (0.3-1.2); BLOOD UREA NITROGEN 10 MG/DL (9-23); CALCIUM LEVEL 7.9 MG/DL (8.5-10.1); CARBON DIOXIDE LEVEL 26 MMOL/L (20-31); CHLORIDE LEVEL 88 MMOL/L (98-107); CREATININE FOR GFR 0.62 MG/DL (0.70-1.30); GLOMERULAR FILTRATION RATE > 90.0 (>56); GLUCOSE, FASTING 93 MG/DL (60-100); POTASSIUM SERUM 3.4 MMOL/L (3.5-5.1); SODIUM LEVEL 121 MMOL/L (136-145); TOTAL PROTEIN 5.5 G/DL (5.7-8.2)
[2024-12-01 13:05] LABS: THYROID STIMULATING HORMONE 1.286 uIU/ML (0.55-4.78)
[2024-12-01 13:06] LABS: CPK CREATINE PHOSPHOKINASE 42 U/L (46-171); MB/CK RELATIVE INDEX 2.38 (< OR =4)
[2024-12-01 14:40] LABS: AMPHETAMINES LEVEL URINE NEGATIVE (NEGATIVE); BARBITURATES URINE NEGATIVE (NEGATIVE); COCAINE METABOLITE URINE NEGATIVE (NEGATIVE)
[2024-12-01 14:41] LABS: BENZODIAZEPINES URINE NEGATIVE (NEGATIVE); METHADONE URINE NEGATIVE (NEGATIVE); PHENCYCLIDINE URINE NEGATIVE (NEGATIVE)
[2024-12-01 14:43] LABS: CK-MB VALUE MASS < 1.0 NG/ML (<3.6)
[2024-12-01 14:47] LABS: CANNABINOIDS URINE POSITIVE (NEGATIVE); OPIATES URINE POSITIVE (NEGATIVE)
[2024-12-01 14:48] LABS: CPK CREATINE PHOSPHOKINASE 33 U/L (46-171); MB/CK RELATIVE INDEX 3.03 (< OR =4)
[2024-12-01 15:08] LABS: PROCALCITONIN 0.09 ng/ml
[2024-12-01] MEDS ORDERED: LORazepam 2 MG TAB PO PRN (15:30)
[2024-12-01] MEDS ORDERED: PERCOCET 5MG/325MG TAB PO PRN ×2 (15:30)
[2024-12-01] MEDS ORDERED: MELO15TA28 PO (15:34)
[2024-12-01] MEDS ORDERED: NICO7DIS30 TOP (15:34)
[2024-12-01] MEDS ORDERED: HOME MED LIST COMPLETE! XX SCH (15:35)
[2024-12-01 16:48] LABS: HEMOGLOBIN A1c 4.6 % (4.0-6.0)
[2024-12-01 16:49] LABS: INR 0.95
[2024-12-01] MEDS: KETOROLAC 30 MG/ML 1ML VIAL IV SCH (17:17)
[2024-12-01] MEDS: NS (Normal Saline) 0.9% 1,000 ML IV SCH (17:18)
[2024-12-01] MEDS: THIAMINE 100 MG TAB PO SCH (17:19)
[2024-12-01 17:35] VITALS: BP 145/81; TEMP 99.1; O2SAT 97
[2024-12-01 17:40] VITALS: BP 145/81
[2024-12-01 19:57] VITALS: BP 138/81; TEMP 98.6; O2SAT 99
[2024-12-01] MEDS: traMADol 50 MG TAB PO ONE (21:05)
[2024-12-02 03:49] VITALS: BP_SYST 121; BP_SYST 127; BP_DIAS 75; TEMP 87.2; O2SAT 97
[2024-12-02 03:50] VITALS: BP_SYST 121; BP_SYST 134; BP_SYST 140; BP_DIAS 75; BP_DIAS 77; BP_DIAS 80
[2024-12-02 06:25] LABS: HEMATOCRIT 29.7 % (42.0-52.0); HEMOGLOBIN 10.5 g/dl (13.5-17.5); MEAN CORPUSCULAR HEMOGLOBIN 32.7 pg (27.0-33.0); MEAN CORPUSCULAR HGB CONC 35.4 g/dl (32.0-36.5); MEAN CORPUSCULAR VOLUME 92.5 fl (80.0-96.0); PLATELET COUNT, AUTOMATED 264 10^3/uL (150-450); RED BLOOD COUNT 3.21 10^6/uL (4.30-6.10); WHITE BLOOD COUNT 7.7 10^3/uL (4.0-10.0)
[2024-12-02 07:03] LABS: ALBUMIN 2.2 G/DL (3.2-5.2); ALKALINE PHOSPHATASE 84 U/L (40-129); ALT/SGPT 14 U/L (7.0-40); AST/SGOT 15 U/L (<34); BILIRUBIN,TOTAL 0.4 MG/DL (0.3-1.2); BLOOD UREA NITROGEN 13 MG/DL (9-23); CALCIUM LEVEL 7.7 MG/DL (8.5-10.1); CARBON DIOXIDE LEVEL 28 MMOL/L (20-31); CHLORIDE LEVEL 90 MMOL/L (98-107); CREATININE FOR GFR 0.61 MG/DL (0.70-1.30); GLOMERULAR FILTRATION RATE > 90.0 (>56); GLUCOSE, FASTING 96 MG/DL (60-100); POTASSIUM SERUM 3.8 MMOL/L (3.5-5.1); SODIUM LEVEL 123 MMOL/L (136-145)
[2024-12-02] MEDS: LOSARTAN 50MG TABLET PO SCH (08:07)
[2024-12-02] MEDS: FOLIC ACID 1MG TAB PO SCH (08:07)
[2024-12-02] MEDS: TAMSULOSIN 0.4 MG CAP PO SCH (08:07)
[2024-12-02] MEDS: risperiDONE 2 MG TAB PO SCH (08:07)
[2024-12-02] MEDS: amLODIPine 5 MG TAB PO SCH (08:08)
[2024-12-02] MEDS: MULTIVITAMINS/MINERALS THERAP 1 TAB PO SCH (08:08)
[2024-12-02] MEDS: NICOTINE 7 MG/24 HR TRANSDERMAL TOP SCH (08:10)
[2024-12-02] MEDS: VENLAFAXINE **XR** 37.5 MG CAPSULE PO SCH (08:13)
[2024-12-02 08:17] VITALS: BP 129/82
[2024-12-02 12:00] VITALS: BP 140/81; TEMP 98.1; O2SAT 92
[2024-12-02] MEDS: FUROSEMIDE 20 MG TAB PO SCH (16:38)
[2024-12-02] MEDS: SODIUM CHLORIDE 1 GM TAB PO SCH (16:39)
[2024-12-02] MEDS: ACETAMINOPHEN 325 MG TAB PO SCH (16:40)
[2024-12-02 18:21] VITALS: BP 132/69
[2024-12-02 18:33] LABS: SODIUM,RANDOM URINE 61 MMOL/L
[2024-12-02 19:47] VITALS: BP 133/71; TEMP 98.8; O2SAT 95
[2024-12-03 04:40] VITALS: BP 142/80; TEMP 98.4; O2SAT 96
[2024-12-03 04:42] VITALS: BP_SYST 135; BP_SYST 140; BP_SYST 142; BP_DIAS 78; BP_DIAS 80; BP_DIAS 81
[2024-12-03 06:33] LABS: HEMATOCRIT 31.1 % (42.0-52.0); HEMOGLOBIN 10.9 g/dl (13.5-17.5); MEAN CORPUSCULAR HEMOGLOBIN 32.5 pg (27.0-33.0); MEAN CORPUSCULAR VOLUME 92.8 fl (80.0-96.0); PLATELET COUNT, AUTOMATED 314 10^3/uL (150-450); RED BLOOD COUNT 3.35 10^6/uL (4.30-6.10); WHITE BLOOD COUNT 6.7 10^3/uL (4.0-10.0)
[2024-12-03 07:09] LABS: ALBUMIN 2.5 G/DL (3.2-5.2); ALKALINE PHOSPHATASE 85 U/L (40-129); ALT/SGPT 13 U/L (7.0-40); AST/SGOT 18 U/L (<34); BILIRUBIN,TOTAL 0.4 MG/DL (0.3-1.2); BLOOD UREA NITROGEN 10 MG/DL (9-23); CALCIUM LEVEL 7.9 MG/DL (8.5-10.1); CARBON DIOXIDE LEVEL 28 MMOL/L (20-31); CHLORIDE LEVEL 94 MMOL/L (98-107); CREATININE FOR GFR 0.59 MG/DL (0.70-1.30); GLOMERULAR FILTRATION RATE > 90.0 (>56); GLUCOSE, FASTING 99 MG/DL (60-100); POTASSIUM SERUM 3.5 MMOL/L (3.5-5.1); SODIUM LEVEL 128 MMOL/L (136-145); TOTAL PROTEIN 5.6 G/DL (5.7-8.2)
[2024-12-03] MEDS ORDERED: SODI1TAB6 PO (08:13)
[2024-12-03] MEDS ORDERED: TRAM50TA2 PO (08:13)
[2024-12-03] MEDS ORDERED: FURO20TA2 PO (08:13)
[2024-12-03 09:33] VITALS: BP 134/77
[2024-12-03] MEDS ORDERED: ACET1TAB55 PO (09:41)
== END 2024-12-03 13:15 | disposition home or self-care (01) ==
LOC: M ED 11:12 → M ED INP 15:28 → M MSPAV 17:33
PROVIDERS: ADMIT Internal Medicine; ATTEND Internal Medicine
DX: S22.42XA Multiple fractures of ribs, left side, initial encounter for closed fracture (principal); S27.321A Contusion of lung, unilateral, initial encounter; W08.XXXA Fall from other furniture, initial encounter; Y92.9 Unspecified place or not applicable; Y93.9 Activity, unspecified; Y99.0 Civilian activity done for income or pay; R10.32 Left lower quadrant pain; J90 Pleural effusion, not elsewhere classified; J98.11 Atelectasis; R55 Syncope and collapse; F17.200 Nicotine dependence, unspecified, uncomplicated; I10 Essential (primary) hypertension; N40.0 Benign prostatic hyperplasia without lower urinary tract symptoms; F31.9 Bipolar disorder, unspecified; M51.370 Other intervertebral disc degeneration, lumbosacral region with discogenic back pain only; E78.5 Hyperlipidemia, unspecified; K76.0 Fatty (change of) liver, not elsewhere classified; F10.188 Alcohol abuse with other alcohol-induced disorder; E87.1 Hypo-osmolality and hyponatremia; Z88.5 Allergy status to narcotic agent; Z79.899 Other long term (current) drug therapy
CPT/HCPCS: 36415; 70450; 71046; 71260; 80047; 80048; 80053; 80076; 80307; 82077; 82550; 82553; 83036; 83605; 83690; 83880; 83935; 84145; 84295; 84300; 84439; 84443; 84484; 85025; 85027; 85610; 93005; 93041; 93306; 94760; 96374; 96375; 96376; 97161; 99284; J1885; J2405; Q9967

== ENCOUNTER → 2024-12-19 | Outpatient (REF) | payer OTHER ==
[~2024-12-19] MED LIST changes: +ACET1TAB55 PO; +FURO20TA2 PO; +MELO15TA28 PO; +NICO7DIS30 TOP; +SODI1TAB6 PO
[2024-12-19 13:36] LABS: BLOOD UREA NITROGEN 8 MG/DL (9-23); CALCIUM LEVEL 9.2 MG/DL (8.5-10.1); CARBON DIOXIDE LEVEL 32 MMOL/L (20-31); CHLORIDE LEVEL 92 MMOL/L (98-107); CREATININE FOR GFR 0.64 MG/DL (0.70-1.30); GLOMERULAR FILTRATION RATE > 90.0 (>56); GLUCOSE, FASTING 89 MG/DL (60-100); POTASSIUM SERUM 3.6 MMOL/L (3.5-5.1); SODIUM LEVEL 131 MMOL/L (136-145)
== END ==
LOC: M SFHCADAM 07:57
PROVIDERS: ATTEND Physician Assistant
DX: S27.321A Contusion of lung, unilateral, initial encounter (principal); X58.XXXA Exposure to other specified factors, initial encounter; Y92.9 Unspecified place or not applicable; Y93.9 Activity, unspecified; Y99.9 Unspecified external cause status

== ENCOUNTER → 2024-12-25 | Outpatient (REF) | payer OTHER ==
[2024-12-26 14:30] LABS: IRON (FE) 26 UG/DL (65-175); TOTAL IRON BINDING CAPACITY 237 UG/DL (250-425)
[2024-12-26 14:31] LABS: ALBUMIN 2.6 G/DL (3.2-5.2); ALKALINE PHOSPHATASE 118 U/L (40-129); ALT/SGPT 11 U/L (7.0-40); AST/SGOT 17 U/L (<34); BILIRUBIN,TOTAL 0.2 MG/DL (0.3-1.2); BLOOD UREA NITROGEN 7 MG/DL (9-23); CALCIUM LEVEL 8.2 MG/DL (8.5-10.1); CARBON DIOXIDE LEVEL 25 MMOL/L (20-31); CHLORIDE LEVEL 94 MMOL/L (98-107); CREATININE FOR GFR 0.59 MG/DL (0.70-1.30); FERRITIN 140.9 NG/ML (10.5-307.3); GLOMERULAR FILTRATION RATE > 90.0 (>56); GLUCOSE, FASTING 95 MG/DL (60-100); POTASSIUM SERUM 3.7 MMOL/L (3.5-5.1); SODIUM LEVEL 127 MMOL/L (136-145); TOTAL PROTEIN 5.8 G/DL (5.7-8.2)
[2024-12-26 14:32] LABS: VITAMIN B12 LEVEL 1001 PG/ML (211-911)
[2024-12-26 14:33] LABS: FOLATE 5.4 NG/ML (>5.4)
[2024-12-26 14:35] LABS: BASO # 0.1 10^3/uL (0.0-0.2); BASO % 0.8 % (0.0-1.0); EOS # 0.1 10^3/uL (0.0-0.5); EOS % 1.8 % (0.0-3.0); HEMATOCRIT 30.7 % (42.0-52.0); HEMOGLOBIN 10.5 g/dl (13.5-17.5); LYMPH # 1.3 10^3/uL (1.5-5.0); LYMPH % 22.2 % (24.0-44.0); MEAN CORPUSCULAR HEMOGLOBIN 31.7 pg (27.0-33.0); MEAN CORPUSCULAR HGB CONC 34.2 g/dl (32.0-36.5); MEAN CORPUSCULAR VOLUME 92.7 fl (80.0-96.0); MONO # 0.6 10^3/uL (0.0-0.8); MONO % 9.6 % (2.0-8.0); NEUTROPHILS # 3.9 10^3/uL (1.5-8.5); NEUTROPHILS % 65.1 % (36.0-66.0); PLATELET COUNT, AUTOMATED 319 10^3/uL (150-450); RED BLOOD COUNT 3.31 10^6/uL (4.30-6.10)
== END ==
LOC: M SFHCADAM 16:45
PROVIDERS: ATTEND Physician Assistant
DX: R07.89 Other chest pain (principal); F10.20 Alcohol dependence, uncomplicated; R60.0 Localized edema; D64.9 Anemia, unspecified; K22.89 Other specified disease of esophagus; E88.09 Other disorders of plasma-protein metabolism, not elsewhere classified; E87.1 Hypo-osmolality and hyponatremia

== ENCOUNTER → 2024-12-30 | Outpatient (REF) | payer OTHER | LOC: M SFHCADAM 15:54 | PROVIDERS: ATTEND Physician Assistant | DX: E87.1 Hypo-osmolality and hyponatremia (principal) ==

== ENCOUNTER 2025-02-10 17:47 | Emergency (ER) | payer OTHER ==
[~2025-02-10] VITALS: Ht 170.2 cm; Wt 67.7 kg
[~2025-02-10 17:47] MED LIST changes: +ACET-653 PO; +OMEP40CA5 PO; +PANT40TA29 PO; +TAMS1CAP17 PO
[2025-02-10] MEDS ORDERED: ISOVUE-370 76% 100 ML VIAL As Ordered ONE (19:59)
[2025-02-10 20:19] LABS: BASO # 0.0 10^3/uL (0.0-0.2); BASO % 0.7 % (0.0-1.0); EOS # 0.1 10^3/uL (0.0-0.5); EOS % 1.8 % (0.0-3.0); LYMPH # 1.8 10^3/uL (1.5-5.0); LYMPH % 33.3 % (24.0-44.0); MONO # 0.6 10^3/uL (0.0-0.8); MONO % 10.5 % (2.0-8.0); NEUTROPHILS # 2.9 10^3/uL (1.5-8.5); NEUTROPHILS % 53.3 % (36.0-66.0); PLATELET COUNT, AUTOMATED 287 10^3/uL (150-450)
[2025-02-10] MEDS: SUCRALFATE SUSP 1GM/10ML UD PO ONE (20:32)
[2025-02-10] MEDS: LIDOCAINE VISCOUS 2% SOLN 15 ML UDC SS ONE (20:33)
[2025-02-10] MEDS: MAALOX 30 ML SUSP *UDC PO ONE (20:33)
[2025-02-10 20:43] LABS: C REACTIVE PROTEIN QUANTITATIV < 0.50 MG/DL (<1.0); CALCIUM LEVEL 8.4 MG/DL (8.5-10.1); CARBON DIOXIDE LEVEL 23 MMOL/L (20-31); CHLORIDE LEVEL 92 MMOL/L (98-107); CREATININE FOR GFR 0.49 MG/DL (0.70-1.30); GLOMERULAR FILTRATION RATE > 90.0 (>56); POTASSIUM SERUM 3.9 MMOL/L (3.5-5.1); SODIUM LEVEL 127 MMOL/L (136-145)
[2025-02-10] MEDS: NS (Normal Saline) 0.9% 1,000 ML IV ONE (22:44)
[2025-02-11 01:22] LABS: CALCIUM LEVEL 7.9 MG/DL (8.5-10.1); CARBON DIOXIDE LEVEL 24 MMOL/L (20-31); CHLORIDE LEVEL 96 MMOL/L (98-107); CREATININE FOR GFR 0.54 MG/DL (0.70-1.30); GLOMERULAR FILTRATION RATE > 90.0 (>56); POTASSIUM SERUM 3.7 MMOL/L (3.5-5.1); SODIUM LEVEL 129 MMOL/L (136-145)
[2025-02-11] MEDS ORDERED: MAGICMW SSP (01:54)
[2025-02-11 03:30] VITALS: BP 149/83; TEMP 98.3; O2SAT 96
== END 2025-02-11 03:49 | disposition home or self-care (01) ==
LOC: M ED 17:47 → EDBD 17:47 → M ED 02-11 03:49
DX: E87.1 Hypo-osmolality and hyponatremia (principal); E86.0 Dehydration; R07.0 Pain in throat; I10 Essential (primary) hypertension; F17.200 Nicotine dependence, unspecified, uncomplicated; F12.10 Cannabis abuse, uncomplicated; Z79.899 Other long term (current) drug therapy; Z88.5 Allergy status to narcotic agent
CPT/HCPCS: 70491; 80048; 85025; 86140; 96360; 96361; 99285; Q9967

== ENCOUNTER → 2025-03-04 | Outpatient (REF) | payer OTHER ==
[~2025-03-04] MED LIST changes: +MAGICMW SSP
[2025-03-04 13:43] LABS: CALCIUM LEVEL 8.4 MG/DL (8.5-10.1); CARBON DIOXIDE LEVEL 27 MMOL/L (20-31); CHLORIDE LEVEL 93 MMOL/L (98-107); CREATININE FOR GFR 0.61 MG/DL (0.70-1.30); GLOMERULAR FILTRATION RATE > 90.0 (>56); POTASSIUM SERUM 4.4 MMOL/L (3.5-5.1); SODIUM LEVEL 131 MMOL/L (136-145)
== END ==
LOC: M SFHCADAM 08:41
PROVIDERS: ATTEND Physician Assistant
DX: E87.1 Hypo-osmolality and hyponatremia (principal)

== ENCOUNTER 2025-03-11 14:28 | Outpatient (CLI) | payer OTHER ==
[~2025-03-11] VITALS: Ht 170.2 cm; Wt 71.0 kg
[~2025-03-11 14:28] MED LIST changes: +ZOLEDRONIC ACID 5 MG in IV 1 EA IV ONE
[2025-03-11 14:40] VITALS: BP 140/85; O2SAT 100
[2025-03-11] MEDS: ZOLEDRONIC ACID 5 MG in IV 1 EA IV ONE (14:51)
[2025-03-11 15:30] VITALS: BP 124/78; O2SAT 98
== END 2025-03-11 15:30 | disposition home or self-care (01) ==
LOC: M INFU 14:28
PROVIDERS: ATTEND Family Medicine
DX: M87.00 Idiopathic aseptic necrosis of unspecified bone (principal); Z88.5 Allergy status to narcotic agent; Z88.8 Allergy status to other drugs, medicaments and biological substances
CPT/HCPCS: 96365; J3489

== ENCOUNTER → 2025-03-26 | Outpatient (CLI) | payer OTHER ==
[~2025-03-26] MED LIST changes: -ZOLEDRONIC ACID 5 MG in IV 1 EA IV ONE
== END ==
LOC: M SOG 06:56
PROVIDERS: ATTEND Orthopaedic Surgery
DX: M87.851 Other osteonecrosis, right femur (principal); M87.852 Other osteonecrosis, left femur; M25.551 Pain in right hip

== ENCOUNTER → 2025-04-14 | Outpatient (CLI) | payer OTHER ==
[~2025-04-14] MED LIST changes: +CIPR500T39 PO; +NICO7PA TOP
== END ==
LOC: M SOG 06:51
PROVIDERS: ATTEND Orthopaedic Surgery
DX: M87.851 Other osteonecrosis, right femur (principal); M87.852 Other osteonecrosis, left femur; M25.551 Pain in right hip; Z53.9 Procedure and treatment not carried out, unspecified reason

== ENCOUNTER → 2025-04-17 | Outpatient (REF) | payer OTHER ==
[2025-04-17 19:19] LABS: ALT/SGPT 207 U/L (7.0-40); AST/SGOT 694 U/L (<34); CALCIUM LEVEL 7.5 MG/DL (8.5-10.1); CARBON DIOXIDE LEVEL 27 MMOL/L (20-31); CHLORIDE LEVEL 83 MMOL/L (98-107); CREATININE FOR GFR 0.47 MG/DL (0.70-1.30); GLOMERULAR FILTRATION RATE > 90.0 (>56); MAGNESIUM LEVEL 1.7 MG/DL (1.8-2.4); POTASSIUM SERUM 3.5 MMOL/L (3.5-5.1); SODIUM LEVEL 122 MMOL/L (136-145)
[2025-04-17 19:36] LABS: BASO # 0.0 10^3/uL (0.0-0.2); BASO % 0.9 % (0.0-1.0); EOS # 0.0 10^3/uL (0.0-0.5); EOS % 0.0 % (0.0-3.0); LYMPH # 1.2 10^3/uL (1.5-5.0); LYMPH % 35.0 % (24.0-44.0); MONO # 0.4 10^3/uL (0.0-0.8); MONO % 10.9 % (2.0-8.0); NEUTROPHILS # 1.8 10^3/uL (1.5-8.5); NEUTROPHILS % 52.3 % (36.0-66.0); PLATELET COUNT, AUTOMATED 149 10^3/uL (150-450)
== END ==
LOC: M SFHCADAM 10:05
PROVIDERS: ATTEND Physician Assistant
DX: R19.7 Diarrhea, unspecified (principal); K22.710 Barrett's esophagus with low grade dysplasia; F10.10 Alcohol abuse, uncomplicated; I95.9 Hypotension, unspecified; Z86.0101 Personal history of adenomatous and serrated colon polyps

== ENCOUNTER 2025-04-18 09:28 | Inpatient (IN) | payer OTHER ==
[~2025-04-18] VITALS: Ht 170.2 cm; Wt 71.3 kg
[~2025-04-18 09:28] MED LIST changes: -CIPR500T39 PO; -NICO7PA TOP
[2025-04-18 10:05] LABS: BASO # 0.0 10^3/uL (0.0-0.2); BASO % 0.5 % (0.0-1.0); EOS # 0.0 10^3/uL (0.0-0.5); EOS % 0.2 % (0.0-3.0); LYMPH # 1.1 10^3/uL (1.5-5.0); LYMPH % 20.4 % (24.0-44.0); MONO # 0.5 10^3/uL (0.0-0.8); MONO % 8.7 % (2.0-8.0); NEUTROPHILS # 3.8 10^3/uL (1.5-8.5); NEUTROPHILS % 69.7 % (36.0-66.0); PLATELET COUNT, AUTOMATED 207 10^3/uL (150-450)
[2025-04-18 10:18] LABS: INR 0.91
[2025-04-18 10:50] LABS: ALT/SGPT 159 U/L (7.0-40); AST/SGOT 455 U/L (<34); CALCIUM LEVEL 7.3 MG/DL (8.5-10.1); CARBON DIOXIDE LEVEL 26 MMOL/L (20-31); CHLORIDE LEVEL 85 MMOL/L (98-107); CREATININE FOR GFR 0.45 MG/DL (0.70-1.30); GLOMERULAR FILTRATION RATE > 90.0 (>56); POTASSIUM SERUM 4.3 MMOL/L (3.5-5.1); SODIUM LEVEL 121 MMOL/L (136-145)
[2025-04-18] MEDS ORDERED: NICO7PA TOP (12:19)
[2025-04-18] MEDS ORDERED: HOME MED LIST COMPLETE! XX SCH (12:20)
[2025-04-18] MEDS: NS 500 ML IV ONE (12:20)
[2025-04-18 12:41] LABS: OSMOLALITY SERUM 266 MOSM/KG (275-295)
[2025-04-18] MEDS: MULTIVITAMINS/MINERALS THERAP 1 TAB PO SCH (13:09)
[2025-04-18] MEDS: THIAMINE 100 MG TAB PO SCH (13:09)
[2025-04-18] MEDS: FOLIC ACID 1 MG TAB PO SCH (13:09)
[2025-04-18] MEDS: CIPROFLOXACIN 500 MG TABLET PO SCH (13:09)
[2025-04-18] MEDS: TAMSULOSIN 0.4 MG CAP PO SCH (13:09)
[2025-04-18] MEDS: VENLAFAXINE **XR** 37.5 MG CAPSULE PO SCH (13:09)
[2025-04-18] MEDS: LR 1,000 ML IV SCH (13:10)
[2025-04-18 13:28] LABS: HEPATITIS C VIRUS ABY INDEX < 0.02 INDEX (<0.8)
[2025-04-18 13:59] LABS: SODIUM,RANDOM URINE 107.0 MMOL/L
[2025-04-18 14:43] LABS: FREE T4 2.14 NG/DL (0.89-1.76)
[2025-04-18 14:47] VITALS: BP 152/96
[2025-04-18 14:50] VITALS: BP 152/96; TEMP 97.7; O2SAT 98
[2025-04-18 16:00] VITALS: BP 128/79; TEMP 97.7; O2SAT 97
[2025-04-18 16:03] LABS: CALCIUM LEVEL 6.9 MG/DL (8.5-10.1); CARBON DIOXIDE LEVEL 27 MMOL/L (20-31); CHLORIDE LEVEL 89 MMOL/L (98-107); CREATININE FOR GFR 0.44 MG/DL (0.70-1.30); GLOMERULAR FILTRATION RATE > 90.0 (>56); POTASSIUM SERUM 3.5 MMOL/L (3.5-5.1); SODIUM LEVEL 125 MMOL/L (136-145)
[2025-04-18 20:12] VITALS: BP 125/78; TEMP 97.5; O2SAT 96
[2025-04-18] MEDS: PANTOPRAZOLE 40MG TAB PO SCH (20:45)
[2025-04-18 22:02] LABS: CALCIUM LEVEL 7.2 MG/DL (8.5-10.1); CARBON DIOXIDE LEVEL 26 MMOL/L (20-31); CHLORIDE LEVEL 93 MMOL/L (98-107); CREATININE FOR GFR 0.57 MG/DL (0.70-1.30); GLOMERULAR FILTRATION RATE > 90.0 (>56); POTASSIUM SERUM 3.1 MMOL/L (3.5-5.1); SODIUM LEVEL 130 MMOL/L (136-145)
[2025-04-18 22:13] VITALS: BP 131/80
[2025-04-19] VITALS (8 sets, daily range): BP systolic 121–139; BP diastolic 76–85; TEMP 97.5–99.2; O2SAT 95–98
[2025-04-19 01:15] LABS: CALCIUM LEVEL 7.2 MG/DL (8.5-10.1); CARBON DIOXIDE LEVEL 25 MMOL/L (20-31); CHLORIDE LEVEL 94 MMOL/L (98-107); CREATININE FOR GFR 0.55 MG/DL (0.70-1.30); GLOMERULAR FILTRATION RATE > 90.0 (>56); POTASSIUM SERUM 2.9 MMOL/L (3.5-5.1); SODIUM LEVEL 130 MMOL/L (136-145)
[2025-04-19 01:38] LABS: MAGNESIUM LEVEL 1.5 MG/DL (1.8-2.4)
[2025-04-19] MEDS: POTASSIUM CHLORIDE 10MEQ SR TABLET PO SCH (01:39)
[2025-04-19] MEDS: MAG SULF 1GM/100ML (MAG RUN) 1 GM in IV 1 EA IV SCH (02:02)
[2025-04-19] MEDS: KCL 10MEQ/100ML SWI (KRUN) 10 MEQ in IV 1 EA IV SCH (04:07)
[2025-04-19 06:38] LABS: PLATELET COUNT, AUTOMATED 159 10^3/uL (150-450)
[2025-04-19 07:05] LABS: CALCIUM LEVEL 7.1 MG/DL (8.5-10.1); CARBON DIOXIDE LEVEL 26 MMOL/L (20-31); CHLORIDE LEVEL 94 MMOL/L (98-107); CREATININE FOR GFR 0.55 MG/DL (0.70-1.30); GLOMERULAR FILTRATION RATE > 90.0 (>56); MAGNESIUM LEVEL 2.0 MG/DL (1.8-2.4); POTASSIUM SERUM 3.6 MMOL/L (3.5-5.1); SODIUM LEVEL 129 MMOL/L (136-145)
[2025-04-19] MEDS: ENOXAPARIN 40 MG/0.4 ML SYRINGE (J1650 PER 10MG) SC SCH (12:13)
[2025-04-19 19:39] LABS: CALCIUM LEVEL 7.4 MG/DL (8.5-10.1); CARBON DIOXIDE LEVEL 26 MMOL/L (20-31); CHLORIDE LEVEL 94 MMOL/L (98-107); CREATININE FOR GFR 0.61 MG/DL (0.70-1.30); GLOMERULAR FILTRATION RATE > 90.0 (>56); POTASSIUM SERUM 4.0 MMOL/L (3.5-5.1); SODIUM LEVEL 129 MMOL/L (136-145)
[2025-04-20] VITALS: BP 147/85; TEMP 99; O2SAT 95
[2025-04-20 03:26] VITALS: BP 155/95; TEMP 98.6; O2SAT 96
[2025-04-20 04:41] VITALS: BP 122/81
[2025-04-20] MEDS ORDERED: NS 500 ML IV ONE (04:55)
[2025-04-20 08:00] VITALS: BP 150/60; TEMP 98.4; O2SAT 92
[2025-04-20 10:00] LABS: PLATELET COUNT, AUTOMATED 173 10^3/uL (150-450)
[2025-04-20 10:29] LABS: ALT/SGPT 118 U/L (7.0-40); AST/SGOT 188 U/L (<34); CALCIUM LEVEL 7.5 MG/DL (8.5-10.1); CARBON DIOXIDE LEVEL 24 MMOL/L (20-31); CHLORIDE LEVEL 95 MMOL/L (98-107); CREATININE FOR GFR 0.58 MG/DL (0.70-1.30); GLOMERULAR FILTRATION RATE > 90.0 (>56); MAGNESIUM LEVEL 1.5 MG/DL (1.8-2.4); POTASSIUM SERUM 3.5 MMOL/L (3.5-5.1); SODIUM LEVEL 129 MMOL/L (136-145)
[2025-04-20] MEDS ORDERED: CIPR500T39 PO (11:25)
[2025-04-20 12:00] VITALS: BP 135/83; TEMP 98.4; O2SAT 100
== END 2025-04-20 12:25 | disposition home or self-care (01) | DRG 248 ==
LOC: M ED 09:28 → M ED INP 12:22 → M MSPAV 14:41
PROVIDERS: ADMIT Family Medicine; ATTEND Family Medicine
DX: A02.0 Salmonella enteritis (principal); E22.2 Syndrome of inappropriate secretion of antidiuretic hormone; K76.0 Fatty (change of) liver, not elsewhere classified; F31.9 Bipolar disorder, unspecified; F17.290 Nicotine dependence, other tobacco product, uncomplicated; Z85.828 Personal history of other malignant neoplasm of skin; M51.369 Other intervertebral disc degeneration, lumbar region without mention of lumbar back pain or lower extremity pain; E78.5 Hyperlipidemia, unspecified; M85.88 Other specified disorders of bone density and structure, other site; Z79.899 Other long term (current) drug therapy; Z88.5 Allergy status to narcotic agent; Z88.8 Allergy status to other drugs, medicaments and biological substances

== ENCOUNTER 2025-04-23 07:47 | Day surgery (SDC) | payer OTHER ==
[~2025-04-23] VITALS: Ht 170.2 cm; Wt 73.8 kg
[~2025-04-23 07:47] MED LIST changes: +CIPR500T39 PO; +NICO7PA TOP
[2025-04-23] MEDS ORDERED: LIDOCAINE 2% 100 MG/5 ML SDV (FOR ANES.) As Ordered ONE (08:26)
[2025-04-23 09:37] VITALS: BP 150/90; O2SAT 100
== END 2025-04-23 09:41 | disposition home or self-care (01) ==
LOC: M OPP 07:47
PROVIDERS: ATTEND Internal Medicine Gastroenterology
DX: K44.9 Diaphragmatic hernia without obstruction or gangrene (principal); K22.70 Barrett's esophagus without dysplasia; K22.2 Esophageal obstruction; Z88.5 Allergy status to narcotic agent; Z79.899 Other long term (current) drug therapy; Z86.73 Personal history of transient ischemic attack (TIA), and cerebral infarction without residual deficits; J45.909 Unspecified asthma, uncomplicated; F17.210 Nicotine dependence, cigarettes, uncomplicated
CPT/HCPCS: 43249; J3010

== ENCOUNTER → 2025-04-28 | Outpatient (REF) | payer OTHER ==
[2025-04-28 18:44] LABS: IRON (FE) 37.0 UG/DL (65-175); PERCENT SATURATION 23.9 % (19.7-50.0)
[2025-04-28 18:46] LABS: VITAMIN B12 LEVEL 949.0 PG/ML (211-911)
== END ==
LOC: M LAB REF 17:51
PROVIDERS: ATTEND Internal Medicine Nephrology
DX: N18.9 Chronic kidney disease, unspecified (principal); D63.1 Anemia in chronic kidney disease

== ENCOUNTER → 2025-04-29 | Outpatient (REF) | payer OTHER ==
[2025-04-29 13:49] LABS: ALT/SGPT 80 U/L (7.0-40); AST/SGOT 142 U/L (<34); CALCIUM LEVEL 8.3 MG/DL (8.5-10.1); CARBON DIOXIDE LEVEL 27 MMOL/L (20-31); CHLORIDE LEVEL 93 MMOL/L (98-107); CREATININE FOR GFR 0.58 MG/DL (0.70-1.30); GLOMERULAR FILTRATION RATE > 90.0 (>56); POTASSIUM SERUM 3.7 MMOL/L (3.5-5.1); SODIUM LEVEL 127 MMOL/L (136-145)
== END ==
LOC: M SFHCADAM 09:36
PROVIDERS: ATTEND Physician Assistant
DX: F10.20 Alcohol dependence, uncomplicated (principal)

== ENCOUNTER 2025-04-30 11:45 | Emergency (ER) | payer OTHER ==
[~2025-04-30] VITALS: Ht 172.7 cm; Wt 70.0 kg
[2025-04-30 12:15] LABS: BASO # 0.1 10^3/uL (0.0-0.2); BASO % 1.3 % (0.0-1.0); EOS # 0.1 10^3/uL (0.0-0.5); EOS % 2.0 % (0.0-3.0); LYMPH # 1.2 10^3/uL (1.5-5.0); LYMPH % 19.1 % (24.0-44.0); MONO # 0.6 10^3/uL (0.0-0.8); MONO % 10.0 % (2.0-8.0); NEUTROPHILS # 4.0 10^3/uL (1.5-8.5); NEUTROPHILS % 65.0 % (36.0-66.0); PLATELET COUNT, AUTOMATED 292 10^3/uL (150-450)
[2025-04-30 12:48] LABS: CALCIUM LEVEL 8.4 MG/DL (8.5-10.1); CARBON DIOXIDE LEVEL 26 MMOL/L (20-31); CHLORIDE LEVEL 95 MMOL/L (98-107); CREATININE FOR GFR 0.60 MG/DL (0.70-1.30); GLOMERULAR FILTRATION RATE > 90.0 (>56); MAGNESIUM LEVEL 1.7 MG/DL (1.8-2.4); POTASSIUM SERUM 3.6 MMOL/L (3.5-5.1); SODIUM LEVEL 129 MMOL/L (136-145)
[2025-04-30 14:53] VITALS: BP 153/85; TEMP 97.2; O2SAT 98
== END 2025-04-30 15:00 | disposition home or self-care (01) ==
LOC: EDBD 11:45 → M ED 12:29
DX: R19.7 Diarrhea, unspecified (principal); I10 Essential (primary) hypertension; E78.5 Hyperlipidemia, unspecified; F17.200 Nicotine dependence, unspecified, uncomplicated; F12.10 Cannabis abuse, uncomplicated; Z79.899 Other long term (current) drug therapy; Z88.5 Allergy status to narcotic agent

== ENCOUNTER → 2025-05-12 | Outpatient (CLI) | payer OTHER | LOC: M SOG 07:24 | PROVIDERS: ATTEND Orthopaedic Surgery | DX: M87.851 Other osteonecrosis, right femur (principal); M87.852 Other osteonecrosis, left femur; M25.551 Pain in right hip ==